=== PATIENT | female | born 1960 | race Caucasian/White ===

== ENCOUNTER → 2017-09-21 | Outpatient (CLI) | payer BC, OTHER ==
[~2017-09-21] MED LIST: ALBU1AER9 INH; CARI250T PO; GABA-113 PO; GABA800T PO; LORA-741 PO; METO50TA16 PO; MISCCAP80 PO; OXYC-106 PO; OXYC40TA34 PO; PRLSR20 PO; SERT50TA PO
--- NOTE | 2017-09-21 15:40 | DIAGNOSTIC IMAGING REPORT ---
L FOOT MIN 3 VIEWS HISTORY: 57 years-old Female LEFT FOOT PAIN acute lateral and posterior left foot pain with history of remote trauma. COMPARISON: None available TECHNIQUE: 3 views of the left foot FINDINGS: Remote fracture deformity with cortical thickening involves the fifth metatarsal diaphysis. Type II accessory navicular. No acute fracture or subluxation. No stress fracture. No opaque foreign body. Minimal dorsal spurring about the midfoot. No significant degenerative changes. Bones appear mildly demineralized. IMPRESSION: 1. No acute fracture or subluxation. 2. Remote fracture deformity with cortical thickening of the fifth metatarsal. The above report was generated using voice recognition software. It may contain grammatical, syntax or spelling errors. Electronically signed by: Oscar Day M.D. 09/21/2017 3:38 PM Dictated Date/Time: 09/21/2017 3:35 PM
== END | disposition home or self-care (01) ==
LOC: C.RDSM 08:00
PROVIDERS: ATTEND Family Medicine
DX: M79.673 Pain in unspecified foot (principal)

== ENCOUNTER 2021-01-04 06:11 | Inpatient (IN) ==
[2021-01-04] MEDS ORDERED: SODIUM CHLORIDE 0.9% 1000ML 2,000 ML IV ONE (06:43)
--- NOTE | 2021-01-04 06:49 | Emergency Department Note ---
Impression & Plan Acute saddle pulmonary embolism, Tachycardia, Shortness of breath ED Provider Note NAME: PAUL MILLARD AGE: 60 SEX: F : 1960 ARRIVES VIA: Ambulance INFORMANT: Patient ED PROVIDER(S): Ronnie Hill DO CHIEF COMPLAINT: Shortness of breath HPI: Patient is a 60-year-old female that presents the ER for shortness of breath. Symptoms started shortly after her surgery which was performed on 12/20/2020 in [place]. She had surgery on her thoracic back. She had a laminectomy and she is not sure of the exact location in her thoracic spine. She notes that since the surgery she has been having persistent pain present but it has not worsened or changed until last night/this morning as she forgot to take her pain medication. She has not wanted to eat or drink is prior to the surgery she did have Covid that had resolved but she still is not eating and dri nking as well. Denies any dysuria urgency or frequency. No recorded fevers above 100.4. She admits to shortness of breath but no chest pain. No other exacerbating or remitting factors. ROS: See above HPI for pertinent positives & negatives. A total of 10 systems reviewed and were otherwise negative. PAST MEDICAL HISTORY:See Below PAST SURGICAL HISTORY:See Below FAMILY HISTORY:See Below SOCIAL HISTORY:See Below HOME MEDICATIONS:See Below ALLERGIES:See Below VITALS:See Below PHYSICAL EXAMINATION: GENERAL: Sitting up in bed, alert, well appearing, well nourished, no distress, non-toxic EYE EXAM: normal conjunctiva. OROPHARYNX: no exudate, no erythema, lips, buccal mucosa, and tongue normal and mucous membranes are moist NECK: supple, no nuchal rigidity, no adenopathy, non-tender LUNGS: Clear to auscultation. Normal chest wall mechanics HEART: Tachycardic, S1 normal and S2 normal ABDOMEN: abdomen soft, non-tender, normo-active bowel sounds, no masses, no rebound or guarding. BACK: Back is symmetrical on inspection and there is no deformity, mid thoracic region with midline incision is clean dry and intact UPPER EXTREMITIES: upper extremities are grossly normal. LOWER EXTREMITIES: Left lower extremity larger than right NEURO EXAM: Normal sensorium, cranial nerves II-XII grossly intact, normal speech, no gross weakness of arms, no gross weakness of legs. MEDICAL DECISION MAKING: Patient is a 60-year-old female who presents the ER for shortness of breath which has been present since the surgery. Is been getting worse. She also admits to a lack of taste and smell and not wanting to eat or drink. IV was established blood work was obtained. She was found to be tachycardic in the 130s. EKG shows T wave inversions with an S1Q3T3. Bedside ultrasound confirms a noncompressible venous system within the left lower extremity on two-point exa m. I-STAT was ordered and patient was taken emergently to CAT scan. CT was obtained and per my interpretation had bilateral PEs with saddle embolism. Patient was ordered heparin bolus and drip. Patient was updated bedside. Radiology did confirm shortly after patient has acute bilateral PEs. Discussed with Dr. Duenas who will evaluate for TPA and was comfortable with keeping the patient here. Discussed with Dr. Keenan Philippe for admission who evaluate the patient at bedside. Covid did come back positive. BMP was remarkable for slightly elevated glucose of 163. Troponin was negative. Lipase was normal. Attempted to contact thoracic spine but no one was route salesperson. Patient was updated and admitted to the hospitalist for further work-up. Triage Nursing notes reviewed. Limited review of prior medical records performed Vital Signs: reviewed and remarkable for tachy Differential diagnosis: Differential diagnoses includes but is not limited to acute coronary syndrome, myocardial infarction, pericarditis, pulmonary embolus, aortic dissection, pneumonia, pneumothorax, musculoskeletal, shingles, esophageal. ER treatment provided: See below Diagnostics interpreted by me: ECG: Sinus tachycardia rate of 125 Normal axis T wave inversion V1 through V6 as well as the inferior leads S1 Q3 T3 Cardiac Monitoring: An order was placed for continuous cardiac monitoring. The monitor shows a rate of 122 with sinus rhythm. Laboratory studies: As stated above and show below. Imaging studies: CT angio of the chest shows bilateral PEs with saddle pulmonary embolism Consultation(s): Internal medicine as discussed above Dr. Keenan Philippe Credit Department Manager as discussed above Attempted to contact surgeon at [facility] but was unsuccessful Procedures: none Critical Care: I have personally spent 55 minutes of critical care time in the direct management of this patient. This includes bedside care, interpretation of diagnostic studies, and testing, discussion with consultants, patient, and family members, and other required patient management activities. This 55 minutes is in excess of all separately billable procedures. Past Med/Surg History Medical History Asthma Bronchitis Headache Hypertension Pneumonia Post lumbar puncture headache Urinary symptom or sign Urinary tract infection Surgical History Previous back surgery S/P tonsillectomy Family History Other Coronary heart disease Myocardial infarction Social History Smoking Status: Never smoker Second Hand Exposure: No; Do You Dip or Chew Tobacco: No; Hx Alcohol Use: No Hx Substance Use: Yes Substance Use Type Other:: legal marijuana Preferred Language: Irish Communication Ability: Effective Websphere Commerce Consultant Required: No Beliefs That Will Affect Care: None marital status: Current Living Situation: Spouse current occupational status: disabled Other Information That Helps Us Care for You: No Feels Safe at Home: Yes Safety Concerns: Feels Safe At This Time Safety Concerns Comment: Pt states her is verbally abusive. caffeine: No Dental Care, Regularly: Yes Physical Activity Frequency: 1-2 Times per Week Seatbelt Use: always Sunscreen Use: No Assistive Devices: Cane and Glasses Allergies Allergies Allergy/AdvReac Type Severity Reaction Status Date / Time cephalexin Allergy Unknown ` Verified 03/30/20 14:40 ciprofloxacin [From Cipro] Allergy Unknown Unverified 03/30/20 14:40 naproxen Allergy Unknown ` Verified 03/30/20 14:40 Sulfa (Sulfonamide Allergy Unknown ` Verified 03/30/20 14:40 Antibiotics) cranberry Allergy Verified 03/30/20 14:40 hydrochlorothiazide Allergy Verified 03/30/20 14:40 [From HydroDiuril] lamotrigine Allergy Verified 03/30/20 14:40 nitrofurantoin Allergy Verified 03/30/20 14:40 [From Macrodantin] duloxetine AdvReac Mild heart Verified 03/30/20 14:56 racing NSAIDS (Non-Steroidal AdvReac Unknown UNKNOWN Unverified 03/30/20 14:40 Anti-Inflamma topiramate AdvReac Unknown arms Verified 03/30/20 14:40 became severly cold Home Meds Home Medications Medication Instructions Recorded Confirmed lactobacillus combination no.4 1 cap PO DAILY 08/17/18 01/04/21 [Probiotic] carisoprodol 350 mg tablet 350 mg PO QID 03/30/20 01/04/21 gabapentin enacarbil [Horizant] 600 mg PO HS 01/04/21 01/04/21 metoprolol tartrate 50 mg PO HS 01/04/21 01/04/21 omeprazole 20 mg PO DAILY PRN 01/04/21 01/04/21 oxycodone 10 mg PO BID 01/04/21 01/04/21 tolterodine 2 mg PO BID 01/04/21 01/04/21 Previous Rx's Medication Instructions Recorded cholecalciferol (vitamin D3) 1,250 50,000 units PO WEEKLY #30 cap 05/28/19 mcg (50,000 unit) capsule epinephrine 0.3 mg/0.3 mL 0.3 mg IM .QUD PRN #1 ea 03/30/20 injection, auto-injector gabapentin 300 mg capsule 300 mg PO .COMPLEX #150 cap 10/14/20 oxybutynin chloride 5 mg tablet 5 mg PO TID #90 tab 11/16/20 albuterol sulfate 90 mcg/actuation 2 puff INH QID PRN #8 g 11/26/20 aerosol inhaler miscellaneous medical supply 1 ea MISCELLANEOUS PRN #1 ea 12/07/20 Results & Data (ED) Vital Signs Vital Signs - 24 hr 01/04/21 06:28 01/04/21 06:45 01/04/21 06:52 Temperature 36.9 C 36.9 C Temperature Source Oral Oral Pulse Rate 131 H 126 H Pulse Rate [Apical] 124 H Pulse Rhythm Regular Respiratory Rate Respiratory Effort / Characteristics Labored Respiratory Depth Normal Blood Pressure 140/112 H Blood Pressure [Left Arm] 140/112 H Blood Pressure Mean 121 Blood Pressure Mean [Left Arm] 121 Pulse Oximetry 93 95 96 Oxygen Delivery Method Room Air Room Air Room Air Sepsis Recent Fever Within 48 Hours No Sepsis New/Unexplained Change in Mental Status No Sepsis Action Taken by Nursing Physician Notified 01/04/21 07:34 Temperature Temperature Source Pulse Rate Pulse Rate [Apical] 125 H Pulse Rhythm Respiratory Rate 18 Respiratory Effort / Characteristics Respiratory Depth Blood Pressure Blood Pressure [Left Arm] 134/81 Blood Pressure Mean Blood Pressure Mean [Left Arm] 98 Pulse Oximetry 93 Oxygen Delivery Method Room Air Sepsis Recent Fever Within 48 Hours Sepsis New/Unexplained Change in Mental Status Sepsis Action Taken by Nursing Laboratory Data Result diagrams: 01/04/21 06:43 01/04/21 07:00 Lab Results 01/04/21 01/04/21 01/04/21 Range/Units 06:43 07:00 07:01 WBC 12.06 H (4.8-10.8) K/uL RBC 4.93 (4.2-5.4) M/uL Hgb 14.8 (12.0-16.0) g/dL POC Hgb (12.0-16.0) g/dl Hct 44.9 (37-47) % POC Hct (37-47) % MCV 91.1 (80-100) fL MCH 30.0 (25-34) pg MCHC 33.0 (32-36) g/dL RDW Std Deviation 51.8 H (36.4-46.3) fL RDW Coeff of Cynthia 15.4 H (11.5-14.5) % Plt Count 241 (130-400) K/uL MPV 11.7 H (7.4-10.4) fL Immature Gran % (Auto) 0.2 % Neut % (Auto) 82.4 % Lymph % (Auto) 11.1 % [place] % (Auto) 6.1 % Eos % (Auto) 0.0 % Baso % (Auto) 0.2 % Neut # (Auto) 9.92 H (1.4-6.5) K/uL Lymph # (Auto) 1.34 (1.2-3.4) K/uL [place] # (Auto) 0.74 H (0.11-0.59) K/uL Eos # (Auto) 0.00 (0-0.5) K/uL Baso # (Auto) 0.03 (0-0.2) K/uL Immature Gran # (Auto) 0.03 H (0.00-0.02) K/uL PT (9.0-12.0) Seconds INR (0.9-1.1) APTT (21.0-31.0) Seconds PTT Ratio POC Sodium (135-144) mmol/L Sodium 138 (136-145) mmol/L POC Potassium (3.3-5.0) mmol/L Potassium 4.4 (3.5-5.1) mmol/L POC Chloride (101-112) mmol/L Chloride 106 (98-107) mmol/L Carbon Dioxide 22 (21-32) mmol/L POC Total CO2 (24-31) mmol/L Anion Gap 10.0 (3-11) POC Anion Gap (16-25) mmol/L POC BUN (7-18) mg/dl BUN 12 (7-18) mg/dl Creatinine 0.95 (0.6-1.2) mg/dl POC Creatinine (0.6-1.3) mg/dl Est Cr Clr Drug Dosing 71.6 ml/min Est GFR ( Amer) 75.5 Est GFR (Non-Af Amer) 65.1 BUN/Creatinine Ratio 12.8 (10-20) Glucose 163 H (70-99) mg/dl POC Glucose (other) (70-99) mg/dl Calcium 9.1 (8.5-10.1) mg/dl POC Ioniz Calcium Gloria (1.12-1.32) mmol/l Total Bilirubin 0.7 (0.2-1) mg/dl AST 23 (15-37) U/L ALT 26 (12-78) U/L Alkaline Phosphatase 87 (45-117) U/L Troponin I 0.038 (0-0.045) ng/ml NT-Pro-B Natriuret Pep 18890 H (0-900) pg/ml Total Protein 7.3 (6.4-8.2) gm/dl Albumin 3.1 L (3.4-5.0) gm/dl Globulin 4.2 H (2.5-4.0) gm/dl Albumin/Globulin Ratio 0.7 L (0.9-2) Lipase 132 (73-393) U/L Urine Color Urine Appearance (Clear) Urine pH (4.5-7.5) Ur Specific [place] (1.000-1.030) Urine Protein (Negative) Urine Glucose (UA) (Negative) Urine Ketones (Negative) Urine Blood (Negative) Urine Nitrite (Negative) Urine Bilirubin (Negative) Urine Urobilinogen (Negative) Ur Leukocyte Esterase (Negative) Urine WBC (Auto) (0-5) /hpf Urine RBC (Auto) (0-4) /hpf U Hyaline Cast (Auto) (0-5) /lpf U Epithel Cells (Auto) (0-5) /lpf Urine Bacteria (Auto) (Negative) COVID-19 Eval Order CovFluRsv at [facility] SARS-CoV-2 (PCR) (Negative) Influenza Type A (PCR) (Neg) Influenza Type B (PCR) (Neg) RSV (RT-PCR) (Neg) 01/04/21 01/04/21 01/04/21 Range/Units 07:01 07:09 07:42 WBC (4.8-10.8) K/uL RBC (4.2-5.4) M/uL Hgb (12.0-16.0) g/dL POC Hgb 15.3 (12.0-16.0) g/dl Hct (37-47) % POC Hct 45 (37-47) % MCV (80-100) fL MCH (25-34) pg MCHC (32-36) g/dL RDW Std Deviation (36.4-46.3) fL RDW Coeff of Cynthia (11.5-14.5) % Plt Count (130-400) K/uL MPV (7.4-10.4) fL Immature Gran % (Auto) % Neut % (Auto) % Lymph % (Auto) % [place] % (Auto) % Eos % (Auto) % Baso % (Auto) % Neut # (Auto) (1.4-6.5) K/uL Lymph # (Auto) (1.2-3.4) K/uL [place] # (Auto) (0.11-0.59) K/uL Eos # (Auto) (0-0.5) K/uL Baso # (Auto) (0-0.2) K/uL Immature Gran # (Auto) (0.00-0.02) K/uL PT (9.0-12.0) Seconds INR (0.9-1.1) APTT (21.0-31.0) Seconds PTT Ratio POC Sodium 137 (135-144) mmol/L Sodium (136-145) mmol/L POC Potassium 4.3 (3.3-5.0) mmol/L Potassium (3.5-5.1) mmol/L POC Chloride 104 (101-112) mmol/L Chloride (98-107) mmol/L Carbon Dioxide (21-32) mmol/L POC Total CO2 23 L (24-31) mmol/L Anion Gap (3-11) POC Anion Gap 16.0 (16-25) mmol/L POC BUN 12 (7-18) mg/dl BUN (7-18) mg/dl Creatinine (0.6-1.2) mg/dl POC Creatinine 0.8 (0.6-1.3) mg/dl Est Cr Clr Drug Dosing ml/min Est GFR ( Amer) Est GFR (Non-Af Amer) BUN/Creatinine Ratio (10-20) Glucose (70-99) mg/dl POC Glucose (other) 166 H (70-99) mg/dl Calcium (8.5-10.1) mg/dl POC Ioniz Calcium Gloria 1.08 L (1.12-1.32) mmol/l Total Bilirubin (0.2-1) mg/dl AST (15-37) U/L ALT (12-78) U/L Alkaline Phosphatase (45-117) U/L Troponin I (0-0.045) ng/ml NT-Pro-B Natriuret Pep (0-900) pg/ml Total Protein (6.4-8.2) gm/dl Albumin (3.4-5.0) gm/dl Globulin (2.5-4.0) gm/dl Albumin/Globulin Ratio (0.9-2) Lipase (73-393) U/L Urine Color Yellow Urine Appearance Clear (Clear) Urine pH 5.5 (4.5-7.5) Ur Specific [place] > 1.045 H (1.000-1.030) Urine Protein Trace H (Negative) Urine Glucose (UA) Negative (Negative) Urine Ketones Trace H (Negative) Urine Blood Trace H (Negative) Urine Nitrite Negative (Negative) Urine Bilirubin Negative (Negative) Urine Urobilinogen Negative (Negative) Ur Leukocyte Esterase 1+ H (Negative) Urine WBC (Auto) 10-30 H (0-5) /hpf Urine RBC (Auto) 0-4 (0-4) /hpf U Hyaline Cast (Auto) 1-5 (0-5) /lpf U Epithel Cells (Auto) >30 H (0-5) /lpf Urine Bacteria (Auto) Negative (Negative) COVID-19 Eval Order SARS-CoV-2 (PCR) POSITIVE A* (Negative) Influenza Type A (PCR) Negative (Neg) Influenza Type B (PCR) Negative (Neg) RSV (RT-PCR) Negative (Neg) 01/04/21 Range/Units 07:50 WBC (4.8-10.8) K/uL RBC (4.2-5.4) M/uL Hgb (12.0-16.0) g/dL POC Hgb (12.0-16.0) g/dl Hct (37-47) % POC Hct (37-47) % MCV (80-100) fL MCH (25-34) pg MCHC (32-36) g/dL RDW Std Deviation (36.4-46.3) fL RDW Coeff of Cynthia (11.5-14.5) % Plt Count (130-400) K/uL MPV (7.4-10.4) fL Immature Gran % (Auto) % Neut % (Auto) % Lymph % (Auto) % [place] % (Auto) % Eos % (Auto) % Baso % (Auto) % Neut # (Auto) (1.4-6.5) K/uL Lymph # (Auto) (1.2-3.4) K/uL [place] # (Auto) (0.11-0.59) K/uL Eos # (Auto) (0-0.5) K/uL Baso # (Auto) (0-0.2) K/uL Immature Gran # (Auto) (0.00-0.02) K/uL PT 11.9 (9.0-12.0) Seconds INR 1.2 H (0.9-1.1) APTT 23.8 (21.0-31.0) Seconds PTT Ratio 0.9 POC Sodium (135-144) mmol/L Sodium (136-145) mmol/L POC Potassium (3.3-5.0) mmol/L Potassium (3.5-5.1) mmol/L POC Chloride (101-112) mmol/L Chloride (98-107) mmol/L Carbon Dioxide (21-32) mmol/L POC Total CO2 (24-31) mmol/L Anion Gap (3-11) POC Anion Gap (16-25) mmol/L POC BUN (7-18) mg/dl BUN (7-18) mg/dl Creatinine (0.6-1.2) mg/dl POC Creatinine (0.6-1.3) mg/dl Est Cr Clr Drug Dosing ml/min Est GFR ( Amer) Est GFR (Non-Af Amer) BUN/Creatinine Ratio (10-20) Glucose (70-99) mg/dl POC Glucose (other) (70-99) mg/dl Calcium (8.5-10.1) mg/dl POC Ioniz Calcium Gloria (1.12-1.32) mmol/l Total Bilirubin (0.2-1) mg/dl AST (15-37) U/L ALT (12-78) U/L Alkaline Phosphatase (45-117) U/L Troponin I (0-0.045) ng/ml NT-Pro-B Natriuret Pep (0-900) pg/ml Total Protein (6.4-8.2) gm/dl Albumin (3.4-5.0) gm/dl Globulin (2.5-4.0) gm/dl Albumin/Globulin Ratio (0.9-2) Lipase (73-393) U/L Urine Color Urine Appearance (Clear) Urine pH (4.5-7.5) Ur Specific [place] (1.000-1.030) Urine Protein (Negative) Urine Glucose (UA) (Negative) Urine Ketones (Negative) Urine Blood (Negative) Urine Nitrite (Negative) Urine Bilirubin (Negative) Urine Urobilinogen (Negative) Ur Leukocyte Esterase (Negative) Urine WBC (Auto) (0-5) /hpf Urine RBC (Auto) (0-4) /hpf U Hyaline Cast (Auto) (0-5) /lpf U Epithel Cells (Auto) (0-5) /lpf Urine Bacteria (Auto) (Negative) COVID-19 Eval Order SARS-CoV-2 (PCR) (Negative) Influenza Type A (PCR) (Neg) Influenza Type B (PCR) (Neg) RSV (RT-PCR) (Neg) Administered Medications Heparin Sodium/Dextrose (Heparin Sodium/Dextrose) 25,000 units in 500 mls @ 26 mls/hr IV .[id number] [facility]; Protocol Stop: 02/03/21 07:37 Last Admin: 01/04/21 07:57 Dose: 1,300 units/hr, 26 mls/hr Documented by: [id number] Cosigned by: [id number] Discontinued Medications Heparin Sodium (Porcine) (Heparin Sod (Porcine) 1000 Unit/Ml) 1 units IV NOW ONE Stop: 01/04/21 07:39 Last Admin: 01/04/21 07:57 Dose: 6,000 units Documented by: [id number] Cosigned by: [id number] Heparin Sodium/Dextrose (Heparin Iv Adult Wt-Based Standard With Bolus Protocol) 1 ea IV NOW STA; Protocol Stop: 01/04/21 07:24 Last Admin: 01/04/21 11:48 Dose: Not Given Documented by: [id number] Sodium Chloride (Nss 1000ml) 2,000 mls @ 999 mls/hr IV .Q2H1M ONE Stop: 01/04/21 08:43 Last Infusion: 01/04/21 11:48 Dose: 0 mls/hr Documented by: [id number] Infusion: 01/04/21 08:11 Dose: 0 mls/hr Documented by: [id number] Admin: 01/04/21 06:48 Dose: 999 mls/hr Documented by: [id number] Ioversol (Optiray 350 500ml) 120 ml IV ONCE ONE Stop: 01/04/21 07:16 Last Admin: 01/04/21 07:16 Dose: 120 ml Documented by: [id number] Imaging Data Radiologist's Impression: Chest CTA 01/04/21 06:43 CT ANGIOGRAM OF THE CHEST CLINICAL HISTORY: Shortness of breath. Cough. Recent surgery. Possible acute pulmonary embolism. COMPARISON STUDY: Chest x-ray dated 01/04/2021 TECHNIQUE: Following the IV administration of 120 mL of Optiray, CT angiogram of the thorax was performed from the thoracic inlet to the lung bases utilizing the pulmonary embolus protocol. Images are reviewed in the axial, sagittal, and coronal planes. IV contrast was administered without complication. MIP imaging was performed. A dose lowering technique was utilized adhering to the principles of ALARA. CT DOSE: 533.00 mGy.cm FINDINGS: r there is a nonspecific 11 mm hypodensity within the right hepatic lobe posteriorly. No pathologically enlarged axillary mediastinal or hilar lymph nodes were visualized. There was no evidence of thoracic aortic dilatation. There is acute bilateral pulmonary embolism with a saddle embolus. There is suspected mild right ventricular strain. The thrombus burden is large. No pleural effusions are visualized. There are peripheral subpleural opacities, atelectatic versus areas of pulmonary infarction. The sequela of prior Covid pneumonia could also appear similar. There is a hiatal hernia. A spinal stimulator is visualized. IMPRESSION: 1. Acute sagittal pulmonary embolism with a large thrombus burden. Suspected mild right ventricular strain 2. The scan findings were discussed with Dr. Hill at 7:30 AM. ACT 112: Negative or not required by law. Electronically signed by: Marlo Munguia M.D. 01/04/2021 7:33 AM Chest X-Ray 01/04/21 06:43 XR chest 1V portable CLINICAL HISTORY: Atypical chest pain COMPARISON STUDY: 08/17/2018 FINDINGS: The cardiac and mediastinal contours remain stable. There is a retrocardiac opacity consistent with a hiatal hernia. There are subsegmental atelectatic changes at the left lung base. A spinal stimulator is visualized. There is no failure. There is no lobar consolidation. There are no pleural effusions.[ IMPRESSION: Moderate hiatal hernia. Left basilar atelectasis. No acute findings. ACT 112: Negative or not required by law. Electronically signed by: Marlo Munguia M.D. 01/04/2021 6:57 AM Discharge Plan Visit Data Chief Complaint: Illness Stated Complaint: POSSIBLE SEPSIS ED Provider: Ronnie Hill Discharge Problem: Acute saddle pulmonary embolism, Tachycardia, Shortness of breath Patient Disposition: Admitted As Inpatient Discharge Instructions Interventions: ED Discharge Assessment Last Done: 01/04/21 10:09 Discharge Problem: Acute saddle pulmonary embolism Qualifiers: Acute cor pulmonale presence: unspecified Qualified Code(s): I26.92 - Saddle embolus of pulmonary artery without acute cor pulmonale
--- NOTE | 2021-01-04 06:59 | XRay Report ---
XR chest 1V portable CLINICAL HISTORY: Atypical chest pain COMPARISON STUDY: 08/17/2018 FINDINGS: The cardiac and mediastinal contours remain stable. There is a retrocardiac opacity consist ent with a hiatal hernia. There are subsegmental atelectatic changes at the left lung base. A spinal stimulator is visualized. There is no failure. There is no lobar consolidation. There are no pleural effusions.[ IMPRESSION: Moderate hiatal hernia. Left basilar atelectasis. No acute findings. ACT 112: Negative or not required by law. Electronically signed by: Marlo Munguia M.D. 01/04/2021 6:57 AM
[2021-01-04] MEDS ORDERED: OPTIRAY 350 500ml IV ONE (07:15)
[2021-01-04 07:17] LABS: Basophils # (auto) 0.03 K/uL (0-0.2); Basophils % (auto) 0.2 %; Hematocrit (blood only) 44.9 % (37-47); Hemoglobin 14.8 g/dL (12.0-16.0); Immature Granulocytes # (auto) 0.03 K/uL (0.00-0.02); Immature Granulocytes % (auto) 0.2 %; Lymphocytes # (auto) 1.34 K/uL (1.2-3.4); Lymphocytes % (auto) 11.1 %; Mean Corpuscular Volume 91.1 fL (80-100); Mean Platelet Volume 11.7 fL (7.4-10.4); Monocytes # (auto) 0.74 K/uL (0.11-0.59); Monocytes % (auto) 6.1 %; Neutrophils # (auto) 9.92 K/uL (1.4-6.5); Neutrophils % (auto) 82.4 %; Platelet Count 241 K/uL (130-400); RDW Coefficient of Variation 15.4 % (11.5-14.5); RDW Standard Deviation 51.8 fL (36.4-46.3); Red Blood Count 4.93 M/uL (4.2-5.4); White Blood Count 12.06 K/uL (4.8-10.8)
[2021-01-04] MEDS ORDERED: Heparin IV Adult Wt-Based Standard WITH Bolus Protocol IV STA (07:23)
--- NOTE | 2021-01-04 07:34 | CT Scan Report ---
CT ANGIOGRAM OF THE CHEST CLINICAL HISTORY: Shortness of breath. Cough. Recent surgery. Possible acute pulmonary embolism. COMPARISON STUDY: Chest x-ray dated 01/04/2021 TECHNIQUE: Following the IV administration of 120 mL of Optiray, CT angiogram of the thorax was perfo rmed from the thoracic inlet to the lung bases utilizing the pulmonary embolus protocol. Images are r eviewed in the axial, sagittal, and coronal planes. IV contrast was administered without complication . MIP imaging was performed. A dose lowering technique was utilized adhering to the principles of [place]. CT DOSE: 533.00 mGy.cm FINDINGS: r there is a nonspecific 11 mm hypodensity within the right hepatic lobe posteriorly. No pathologically enlarged axillary mediastinal or hilar lymph nodes were visualized. There was no evidence of thoracic aortic dilatation. There is acute bilateral pulmonary embolism with a saddle embolus. There is suspected mild right vent ricular strain. The thrombus burden is large. No pleural effusions are visualized. There are peripheral subpleural opacities, atelectatic versus areas of pulmonary infarction. The sequ cristina of prior Covid pneumonia could also appear similar. There is a hiatal hernia. A spinal stimulator is visualized. IMPRESSION: 1. Acute sagittal pulmonary embolism with a large thrombus burden. Suspected mild right ventricular s train 2. The scan findings were discussed with Dr. Hill at 7:30 AM. ACT 112: Negative or not required by law. Electronically signed by: Marlo Munguia M.D. 01/04/2021 7:33 AM
[2021-01-04] MEDS ORDERED: HEPARIN SOD (PORCINE) 1000 UNIT/ML IV ONE (07:38)
[2021-01-04] MEDS ORDERED: HEPARIN SODIUM/DEXTROSE 25,000 UNITS/500 ML BAG IV SCH (07:38)
[2021-01-04 07:46] LABS: Albumin Level 3.1 gm/dl (3.4-5.0); BUN Creatinine Ratio 12.8 (10-20); Calcium 9.1 mg/dl (8.5-10.1); Creatinine Clr Calc Pharmacy 71.6 ml/min; Est GFR (African American) 75.5; Est GFR (Non-African American) 65.1; Potassium 4.4 mmol/L (3.5-5.1)
[2021-01-04 07:49] LABS: Influenza A virus by PCR Negative (Neg); Influenza B virus by PCR Negative (Neg); RSV by PCR Negative (Neg)
[2021-01-04 07:51] LABS: Albumin Globulin Ratio 0.7 (0.9-2); Bilirubin,Total 0.7 mg/dl (0.2-1); Globulin 4.2 gm/dl (2.5-4.0); Total Protein 7.3 gm/dl (6.4-8.2); Troponin I 0.038 ng/ml (0-0.045)
[2021-01-04 07:53] LABS: iSTAT Creatinine 0.8 mg/dl (0.6-1.3); iSTAT Hemoglobin 15.3 g/dl (12.0-16.0); iSTAT Ionized Calcium 1.08 mmol/l (1.12-1.32); iSTAT Potassium 4.3 mmol/L (3.3-5.0)
[2021-01-04 07:59] LABS: SARS CoV2 RNA(COVID-19) InHosp POSITIVE (Negative)
--- NOTE | 2021-01-04 08:04 | History & Physical Report ---
Date of Service January 04, 2021 Assessment & Plan (1) Acute saddle pulmonary embolism: Admit to PCU, blood pressure is stable and maintaining O2 sats on room air despite large saddle embolus present Continue Heparin standard IV bolus and drip TTE Stat ABG Consult pulmonology (2) Tachycardia: Secondary to PE as above, possible rebound tachycardia from not taking metoprolol last night (3) Shortness of breath: As above (4) Hypertension: Hold metoprolol (5) Asthma: No acute exacerbation Albuterol PRN (6) Previous back surgery: Continue her usual gabapentin, carisoprodol and oxycodone (7) Stress incontinence: Continue oxybutynin (8) GERD (gastroesophageal reflux disease): Switch omeprazole to pantoprazole per hospital formulary Admission and Anticipated Discharge Date Admission Date: January 04, 2021 History of Present Illness Chief Complaint: Shortness of breath Primary Care Provider: MEMO Chand Bonnie Carmen is a 60-year-old female who presents to the ER due to decreased appetite, chills, nonproductive cough, shortness of breath, back pain s/p surgery 12/20/[address] [place] [address] Gunn. She previously tested positive for COVID-19 and was unwell with respiratory symptoms starting November 24. She feels as if her symptoms are similar to her prior COVID-19 infection. No chest pain, orthopnea, objective fevers, abdominal pain, nausea, vomiting, diarrhea or urinary symptoms. She denies any leg pain or swelling. She reports progressively worsening shortness of breath and decreased appetite since her surgery on 12/20/2020 - she reports this was for spinal stimulator insertion although is unclear on the exact details. She reports multiple prior back surgeries for back pain without radicular, urinary or bowel symptoms. In the ER CT for PE showed a saddle embolus. She was started on heparin IV standard bolus and drip. She was referred to medicine for admission and ongoing management or pulmonary embolism. Allergies Allergy/AdvReac Type Severity Reaction Status Date / Time cephalexin Allergy Unknown ` Verified 03/30/20 14:40 ciprofloxacin [From Cipro] Allergy Unknown Unknown Unverified 01/04/21 14:13 naproxen Allergy Unknown ` Verified 03/30/20 14:40 Sulfa (Sulfonamide Allergy Unknown ` Verified 03/30/20 14:40 Antibiotics) cranberry Allergy Unknown Verified 01/04/21 14:13 hydrochlorothiazide Allergy Unknown Verified 01/04/21 14:13 [From HydroDiuril] lamotrigine Allergy Unknown Verified 01/04/21 14:13 nitrofurantoin Allergy Unknown Verified 01/04/21 14:13 [From Macrodantin] duloxetine AdvReac Mild heart Verified 03/30/20 14:56 racing NSAIDS (Non-Steroidal AdvReac Unknown UNKNOWN Unverified 03/30/20 14:40 Anti-Inflamma topiramate AdvReac Unknown arms Verified 03/30/20 14:40 became severly cold sertraline AdvReac Unknown Verified 01/04/21 14:13 tramadol AdvReac Unknown Verified 01/04/21 14:13 venlafaxine AdvReac Unknown Verified 01/04/21 14:13 Home Medications Medication Instructions Recorded Confirmed Type lactobacillus combination no.4 1 cap PO DAILY 08/17/18 01/04/21 History [Probiotic] cholecalciferol (vitamin D3) 1,250 50,000 units PO WEEKLY #30 cap 05/28/19 01/04/21 Rx mcg (50,000 unit) capsule carisoprodol 350 mg tablet 350 mg PO QID 03/30/20 01/04/21 History epinephrine 0.3 mg/0.3 mL 0.3 mg IM .QUD PRN #1 ea 03/30/20 01/04/21 Rx injection, auto-injector gabapentin 300 mg capsule 300 mg PO .COMPLEX #150 cap 10/14/20 01/04/21 Rx oxybutynin chloride 5 mg tablet 5 mg PO TID #90 tab 11/16/20 01/04/21 Rx albuterol sulfate 90 mcg/actuation 2 puff INH QID PRN #8 g 11/26/20 01/04/21 Rx aerosol inhaler miscellaneous medical supply 1 ea MISCELLANEOUS PRN #1 ea 12/07/20 01/04/21 Rx gabapentin enacarbil [Horizant] 600 mg PO HS 01/04/21 01/04/21 History metoprolol tartrate 50 mg PO HS 01/04/21 01/04/21 History omeprazole 20 mg PO DAILY PRN 01/04/21 01/04/21 History oxycodone 10 mg PO BID 01/04/21 01/04/21 History tolterodine 2 mg PO BID 01/04/21 01/04/21 History Past Med/Surg History Medical History Asthma Bronchitis Headache Hypertension Pneumonia Post lumbar puncture headache Urinary symptom or sign Urinary tract infection Surgical History Previous back surgery S/P tonsillectomy Family History Other Coronary heart disease Myocardial infarction Social History Smoking Status: Never smoker Second Hand Exposure: No; Do You Dip or Chew Tobacco: No; Hx Alcohol Use: No Hx Substance Use: Yes Substance Use Type Other:: legal marijuana Preferred Language: Azeri Communication Ability: Effective Chair Mechanic Required: No Beliefs That Will Affect Care: None marital status: Current Living Situation: Spouse current occupational status: disabled Other Information That Helps Us Care for You: No Feels Safe at Home: Yes Safety Concerns: Feels Safe At This Time Safety Concerns Comment: Pt states her is verbally abusive. caffeine: No Dental Care, Regularly: Yes Physical Activity Frequency: 1-2 Times per Week Seatbelt Use: always Sunscreen Use: No Assistive Devices: Cane and Oxygen - Continuous Review of Systems Review of Systems: All systems reviewed & are unremarkable except as noted in HPI & below Physical Exam Constitutional: WD/WN, vitals as above Eyes: PERRL, conjunctivae normal, anicteric sclerae ENMT: external ear and nose normal, oropharynx normal Respiratory: + uses accessory muscles Auscultation: lungs clear to auscultation bilaterally; no diminished lung sounds and no crackles Cardiovascular: Rate/Rhythm: regular rhythm and + tachycardic Heart Sounds: no murmur Vessels: no JVD Extremities: normal capillary refill; no calf tenderness and no pedal edema Gastrointestinal (Abdomen): normal bowel sounds, soft, nontender, no hepatosplenomegaly Musculoskeletal: no cyanosis or clubbing, extremities motor strength 5/5 Skin: no rashes, warm and dry Neurologic: moves all extremities and awake; no focal motor deficits and not confused Psychiatric: A+Ox3, euthymic affect Genitourinary: no CVA tenderness Results & Data Results & Data ([facility]) Vital Signs (Past 12 Hours) Vital Signs Temp Pulse Pulse Resp BP BP Pulse Ox 01/04/21 07:34 125 H 18 134/81 93 01/04/21 06:52 36.9 C 124 H 21 140/112 H 96 01/04/21 06:45 126 H 21 95 01/04/21 06:28 36.9 C 131 H 21 140/112 H 93 Diagnostic Findings XR chest 1V portable IMPRESSION: Moderate hiatal hernia. Left basilar atelectasis. No acute findings. CT ANGIOGRAM OF THE CHEST IMPRESSION: 1. Acute sagittal pulmonary embolism with a large thrombus burden. Suspected mild right ventricular strain 2. The scan findings were discussed with Dr. Hill at 7:30 AM. Medications Administered ER Medications Given: IV heparin standard bolus and drip 2L NSS bolus ECG Rate (beats per minute): 125 Rhythm: sinus tachycardia Findings: + nonspecific-ST abn (Anterior) and + T-wave inversion (Anterior) Comparison ECG Date: from (Aug 17, 2018) Code Status & VTE Plan Code Status Full PG Care Time/CCT Total # of Minutes Spent Total Time Spent with Patient: Total time spent is greater than 50% in coordination of care (as documented) at patient's floor/unit and/or counseling patient: Coding Level of Care Code 38175 Initial Inpt Care Lvl 3 Diagnoses Acute saddle pulmonary embolism I26.92 Acute cor pulmonale presence: unspecified Tachycardia R00.0 Shortness of breath R06.02 Hypertension I10 Asthma J45.909 Previous back surgery Z98.890 Stress incontinence N39.3 GERD (gastroesophageal reflux disease) K21.9 (1) Acute saddle pulmonary embolism Acute cor pulmonale presence: unspecified Qualified Code(s): I26.92 - Saddle embolus of pulmonary artery without acute cor pulmonale
[2021-01-04 08:06] LABS: Appearance Urine Clear (Clear); Bacteria Urine Automated Negative (Negative); Bilirubin Urine Negative (Negative); Blood Urine Trace (Negative); Color Urine Yellow; Epithelial Cell Urine Auto >30 /lpf (0-5); Glucose Urine UA Negative (Negative); Ketones Urine Trace (Negative); Leukocyte Esterase Urine 1+ (Negative); Nitrite Urine Negative (Negative); Protein Urine Trace (Negative); RBC Urine Automated 0-4 /hpf (0-4); Specific Gravity Urine > 1.045 (1.000-1.030); Urobilinogen Urine Negative (Negative); pH Urine 5.5 (4.5-7.5)
[2021-01-04 08:20] LABS: INR 1.2 (0.9-1.1); Partial Thromboplastin Ratio 0.9; Partial Thromboplastin Time 23.8 Seconds (21.0-31.0); Prothrombin Time 11.9 Seconds (9.0-12.0)
[2021-01-04] MEDS ORDERED: TOLTERODINE TARTRATE 2 MG TAB PO SCH (10:51)
[2021-01-04] MEDS ORDERED: oxyCODONE HCL IR 5 MG TAB (IMMEDIATE RELEASE) PO SCH (10:51)
[2021-01-04 10:53] LABS: Base Excess ABG -4.6 mEq/L (-9-1.8); HCO3 ABG 16 mmol/L (19-24); Oxygen Saturation ABG 94.7 % (90-95); PCO2 ABG 21 mmHg (35-46); PO2 ABG 64 mmHg (80-95)
[2021-01-04 10:54] LABS: Allen Test Pos (Pos)
--- NOTE | 2021-01-04 11:13 | Pulmonary Consultation ---
Date of Consultation January 04, 2021 Assessment & Plan (1) Acute saddle pulmonary embolism: CT chest 12/05/2020 personally reviewed: Saddle PE appreciated, right ventricular strain also appreciated. Minimal mosaicism. Groundglass opacities minimal appreciated on the periphery. Dependent atelectasis bilateral lower lobe EKG 01/04/2021: Sinus tachycardia, minimal ST depression in lead I, mild ST elevation in 3 which is less than 1 mm, T wave inversions on the lateral leads. --Acute saddle PE With right ventricular strain and clot in transit in the right atrium BNP 13,000 PESI score Class II sPESI High risk Patient is hemodynamically stable but given the above findings I think it is class I indication to give TPA if she has no contraindications for TPA We do not have EKOS in our facility. Patient had lower back surgery done 12/20/2020 which is more than 2 weeks ago. Risk and benefits of giving the TPA explained to the patient in depth. There is risk of bleeding with TPA as with any blood thinner. It is 3.4% more compared to heparin. Risk of intracerebral bleed is also there as well as hemoptysis. Given the clot in transit there is a risk of cardiac arrest. -- Clot in transit RA clot Plan: Currently on heparin drip. Recommend TPA 50 mg IV Patient's was also called and updated regarding the recommendation at [phone] Philippe Please note the above document was generated using voice recognition software. It may contain grammatical, syntax or spelling errors.Any formal questions or concerns about the content, text or information contained within the body of this dictation should be directly addressed to the provider for clarification. Acute cor pulmonale presence: unspecified Qualified Code(s): I26.92 - Saddle embolus of pulmonary artery without acute cor pulmonale (2) Tachycardia: (3) Shortness of breath: History of Present Illness Attending Physician: Keenan Philippe MD History of Present Illness 60-year-old female presented to the ED with complaints of shortness of breath. She said that shortness of breath started approximately a week ago progressively getting worse. She had laminectomy done on 12/20/2020 on the thoracic back. Patient also had Covid in the past. At the time of examination patient's heart rate was in the low 120s, she was not in respiratory distress. Respiratory rate was in the mid teens. Denied any dizziness. She did complain of dizziness prior to coming to the hospital Denies any fever or chills. Denies any chest pain. No dysuria, no diarrhea No headache, no dizziness. Denies any history of cancer Low back surgery was done on 12/20/2020 Social history: Non-smoker, no illicit drug use, no alcohol use Allergies Allergy/AdvReac Type Severity Reaction Status Date / Time cephalexin Allergy Unknown ` Verified 03/30/20 14:40 ciprofloxacin [From Cipro] Allergy Unknown Unverified 03/30/20 14:40 naproxen Allergy Unknown ` Verified 03/30/20 14:40 Sulfa (Sulfonamide Allergy Unknown ` Verified 03/30/20 14:40 Antibiotics) cranberry Allergy Verified 03/30/20 14:40 hydrochlorothiazide Allergy Verified 03/30/20 14:40 [From HydroDiuril] lamotrigine Allergy Verified 03/30/20 14:40 nitrofurantoin Allergy Verified 03/30/20 14:40 [From Macrodantin] duloxetine AdvReac Mild heart Verified 03/30/20 14:56 racing NSAIDS (Non-Steroidal AdvReac Unknown UNKNOWN Unverified 03/30/20 14:40 Anti-Inflamma topiramate AdvReac Unknown arms Verified 03/30/20 14:40 became severly cold Home Medications Medication Instructions Recorded Confirmed Type lactobacillus combination no.4 1 cap PO DAILY 08/17/18 01/04/21 History [Probiotic] cholecalciferol (vitamin D3) 1,250 50,000 units PO WEEKLY #30 cap 05/28/19 01/04/21 Rx mcg (50,000 unit) capsule carisoprodol 350 mg tablet 350 mg PO QID 03/30/20 01/04/21 History epinephrine 0.3 mg/0.3 mL 0.3 mg IM .QUD PRN #1 ea 03/30/20 01/04/21 Rx injection, auto-injector gabapentin 300 mg capsule 300 mg PO .COMPLEX #150 cap 10/14/20 01/04/21 Rx oxybutynin chloride 5 mg tablet 5 mg PO TID #90 tab 11/16/20 01/04/21 Rx albuterol sulfate 90 mcg/actuation 2 puff INH QID PRN #8 g 11/26/20 01/04/21 Rx aerosol inhaler miscellaneous medical supply 1 ea MISCELLANEOUS PRN #1 ea 12/07/20 01/04/21 Rx gabapentin enacarbil [Horizant] 600 mg PO HS 01/04/21 01/04/21 History metoprolol tartrate 50 mg PO HS 01/04/21 01/04/21 History omeprazole 20 mg PO DAILY PRN 01/04/21 01/04/21 History oxycodone 10 mg PO BID 01/04/21 01/04/21 History tolterodine 2 mg PO BID 01/04/21 01/04/21 History Patient History Medical History Asthma Bronchitis Headache Hypertension Pneumonia Post lumbar puncture headache Urinary symptom or sign Urinary tract infection Surgical History Previous back surgery S/P tonsillectomy Family History Other Coronary heart disease Myocardial infarction Social History Smoking Status: Never smoker Second Hand Exposure: No; Do You Dip or Chew Tobacco: No; Hx Alcohol Use: No Hx Substance Use: Yes Substance Use Type Other:: legal marijuana Preferred Language: Guamanian Communication Ability: Effective Irrigation Equipment Remover Required: No Beliefs That Will Affect Care: None marital status: Current Living Situation: Spouse current occupational status: disabled Other Information That Helps Us Care for You: No Feels Safe at Home: Yes Safety Concerns: Feels Safe At This Time Safety Concerns Comment: Pt states her is verbally abusive. caffeine: No Dental Care, Regularly: Yes Physical Activity Frequency: 1-2 Times per Week Seatbelt Use: always Sunscreen Use: No Assistive Devices: Cane and Glasses Review of Systems Review of Systems: All systems reviewed & are unremarkable except as noted in HPI & below Physical Exam Physical Exam: Constitutional: No acute distress HEENT: EOMI, PERRLA Respiratory system: Decreased air entry bilaterally, no wheeze, no rhonchi, mild crackles bilateral lower lobe CVS: S1-S2 positive, no murmurs or gallops, tachycardia Abdomen: Soft, nontender, nondistended, positive bowel sounds x4, obese Extremities: +2 pulses bilaterally radialis/ dorsalis pedis, no cyanosis, no edema Neuro: Awake alert oriented x3 Psych: Normal mood and affect G/U: No Mcgarry Skin: no rashes, warm and dry Lymphatic: no cervical or axillary lymphadenopathy Results & Data Results & Data ([facility]) Vital Signs (Past 12 Hours) Vital Signs Temp Pulse Pulse Resp BP BP Pulse Ox 01/04/21 09:00 118 H 18 156/99 H 95 01/04/21 07:34 125 H 18 134/81 93 01/04/21 06:52 36.9 C 124 H 21 140/112 H 96 01/04/21 06:45 126 H 21 95 01/04/21 06:28 36.9 C 131 H 21 140/112 H 93 01/04/21 06:43 01/04/21 07:00 PG Care Time/CCT Total # of Minutes Spent Total Time Spent with Patient: Total time spent is greater than 50% in coordination of care (as documented) at patient's floor/unit and/or counseling patient: Coding Level of Care Code 73108 Inpt Consult Level 5 Diagnoses Acute saddle pulmonary embolism I26.92 Acute cor pulmonale presence: unspecified Tachycardia R00.0 Shortness of breath R06.02 Time Spent (min) 110
[2021-01-04] MEDS ORDERED: PRIMARY PLUMSET, PE LINED TUBING, 113 IN, NON-DEHP (2260-0500) IV STA (12:21)
[2021-01-04] MEDS ORDERED: DC ALL ANTICOAGULANTS STA (12:21)
[2021-01-04] MEDS ORDERED: METOPROLOL TARTRATE 50 MG TAB PO STA (12:24)
[2021-01-04] MEDS: OXYBUTYNIN CHLORIDE 5 MG TAB PO SCH ×2 (12:27→13:41)
[2021-01-04] MEDS ORDERED: ICU PROTOCOL FOR HYPERGLYCEMIA PRN (12:37)
[2021-01-04] MEDS ORDERED: ALTEPLASE, RECOMBINANT 50 MG in EMPTY BAG 0 ML IV ONE (13:00)
[2021-01-04] MEDS: GABAPENTIN 300 MG CAP PO SCH ×2 (13:41→16:42)
[2021-01-04] MEDS: CARISOPRODOL 350 MG TABLET PO SCH ×2 (13:41→18:51)
[2021-01-04 13:55] LABS: INR 1.2 (0.9-1.1); Partial Thromboplastin Ratio 1.5; Partial Thromboplastin Time 40.3 Seconds (21.0-31.0); Prothrombin Time 12.2 Seconds (9.0-12.0)
[2021-01-04] MEDS ORDERED: PANTOprazole 40 MG in SYRINGE 0 ML IV ONE (14:45)
[2021-01-04] MEDS ORDERED: SODIUM CHLORIDE 0.9% 50 ML BAG IV ONE (15:00)
[2021-01-04] MEDS ORDERED: METOPROLOL TARTRATE 1 MG/ML VIAL IV PRN (15:40)
[2021-01-04] MEDS ORDERED: Heparin IV Adult Wt-Based Low-Dose *NO* Bolus Protocol IV SCH (16:00)
[2021-01-04] MEDS ORDERED: METOPROLOL TARTRATE 1 MG/ML VIAL IV SCH (16:00)
[2021-01-04 16:07] LABS: Hematocrit (blood only) 39.4 % (37-47); Hemoglobin 12.8 g/dL (12.0-16.0); Mean Corpuscular Hemoglobin 29.5 pg (25-34); Mean Corpuscular Hgb Conc 32.5 g/dL (32-36); Mean Corpuscular Volume 90.8 fL (80-100); Mean Platelet Volume 11.5 fL (7.4-10.4); Platelet Count 228 K/uL (130-400); RDW Coefficient of Variation 15.4 % (11.5-14.5); RDW Standard Deviation 51.4 fL (36.4-46.3); Red Blood Count 4.34 M/uL (4.2-5.4)
[2021-01-04 16:10] LABS: Partial Thromboplastin Ratio 1.6
[2021-01-04] MEDS ORDERED: *Start* Heparin IV Low Dose IV ONE (16:14)
[2021-01-04] MEDS: HEPARIN SODIUM/DEXTROSE 25,000 UNITS/500 ML BAG IV SCH ×2 (16:41→18:10)
[2021-01-04 17:15] LABS: Hematocrit (blood only) 39.5 % (37-47); Hemoglobin 12.9 g/dL (12.0-16.0)
--- NOTE | 2021-01-04 17:15 | XCELERA ---
[id number]
--- NOTE | 2021-01-04 17:32 | Communication Note ---
Date of Service: January 04, 2021 Critical CARE addendum: Was called to evaluate the patient as there was developing hematoma at the site of the surgery which the patient had on 12/20/2020. Patient had finished the 2 hours of 50 mg TPA which was given peripherally. Heparin has not been restarted yet. The site was tender. There was no neurological deficit appreciated. Patient was complaining of pain at the site. Patient was moving bilateral upper and lower extremities. Patient's blood pressure was systolic 130s, heart rate in the high 90s. I will get a stat H&H. Will type and screen Hold heparin. Send the patient to CT of the thoracic spine to see the extent of the hematoma. Case was discussed with Dr Morrison from [facility] who accepted the patient. [facility] Patient's was also called and updated regarding the finding. All questions inquiries of the patient as well as patient's were answered in depth. Dr. Philippe was also updated. I have personally spent 75 minutes of critical care time in the direct management of this patient. This is a life/limb threatening event. This includes time spent evaluating patient, direct bedside care, chart review, placing orders, interpretation of diagnostic studies, discussion with consultants, patient, and family members, as well as other required patient management activities. This time is exclusive of all separately billable procedures, and teaching time and separate from and in addition to any other critical care service time. Please note the above document was generated using voice recognition software. It may contain grammatical, syntax or spelling errors. Coding Level of Care Code Critical Care 1st 30-74 mins Time Spent (min) 75
--- NOTE | 2021-01-04 17:49 | CT Scan Report ---
CT thoracic spine wo con HISTORY: 60 years-old Female bleed acute back pain with recent surgery COMPARISON: CTA chest of same day TECHNIQUE: Multiple axial CT images of the thoracic spine were obtained without the use of IV contras t. A dose lowering technique was used consistent with the principals of JULIAN. FINDINGS: Scattered vertebral body hemangiomas throughout the thoracic spine. No acute fracture, subluxation, s uspicious bone lesion or significant intervertebral disc space narrowing. No high-grade central canal or neuroforaminal narrowing identified. Retained contrast is noted within the renal collecting syste ms. Coronary artery calcifications. Moderate sized hiatal hernia. 5 mm solid nodule of the right uppe r lobe. Subpleural bibasilar groundglass and reticular opacities suggest a combination of atelectasis with scarring. 1.3 cm hypodensity of the posterior right hepatic lobe may reflect a cyst. Partially imaged battery pack of the right lower back. Spinal stimulator leads enter the central bereket l at the level of T10-T11 with distal tip of the device within the central canal to level of T8. Ther e is ill-defined stranding along the posterior elements measuring up to 4.5 x 1.7 x 5.0 cm which has progressed from the study earlier today. Additional subcutaneous collection with intermixed foci of a ir noted at the midline measuring up to 2.6 x 2.1 x 10.1 cm which is also progressed from comparison. No epidural hematoma identified. IMPRESSION: 1. Spinal stimulator device is present with leads entering the central canal at the level of T10-T11 with distal tip at the level of T8. There is suggested hematoma surrounding the stimulator leads as a grant including a subcutaneous hematoma measuring up to 10.1 cm in length, new/progressed from the CTA chest study of same day. 2. Additional findings as above. ACT 112: Negative or not required by law. The above report was generated using voice recognition software. It may contain grammatical, syntax o r spelling errors. Electronically signed by: Perez Day M.D. 01/04/2021 5:47 PM
[2021-01-04] MEDS ORDERED: MoRPHine SULFATE 2 MG/ML CARP IV PRN (18:45)
[2021-01-04 20:06] LABS: iSTAT Arterial Blood Gas HCO3 26 meg/L (19-24); iSTAT Arterial Blood Gas pCO2 31 mmHg (35-46); iSTAT Arterial Blood Gas pH 7.52 (7.35-7.45); iSTAT Arterial Blood Gas pO2 < 32 mmHg (80-95); iSTAT Carbon Dioxide 27 mmol/L (24-31); iSTAT Hematocrit 38 % (37-47); iSTAT Hemoglobin 12.9 g/dl (12.0-16.0); iSTAT Potassium 5.4 mmol/L (3.3-5.0); iSTAT Sodium 141 mmol/L (135-144)
--- NOTE | 2021-01-05 06:33 | Electrocardiogram Report ---
Test Reason : Blood Pressure : / mmHG Vent. Rate : 125 BPM Atrial Rate : 125 BPM P-R Int : 116 ms QRS Dur : 084 ms QT Int : 324 ms P-R-T Axes : 063 063 163 degrees QTc Int : 467 ms Sinus tachycardia Possible Left atrial enlargement Possible Inferior infarct Abnormal ECG When compared with ECG of 17-AUG-2018 19:17, Vent. rate has increased BY 52 BPM T wave inversion now evident in Anterior leads Confirmed by Enrique Muñoz ([id number]) on 01/05/2021 6:32:35 AM Referred By: REFERRED SELF Confirmed By:Enrique Muñoz
[2021-01-05] MEDS ORDERED: PANTOprazole 40 MG TAB PO SCH (09:00)
[2021-01-05] MEDS ORDERED: ADVANCED PROBIOTIC 1250 MG CAPSULE PO SCH (09:00)
--- NOTE | 2021-01-05 10:35 | Discharge Summary ---
Date of Service January 04, 2021 Admission HPI Per Admitting Provider Bonnie Carmen is a 60-year-old female who presents to the ER due to decreased appetite, chills, nonproductive cough, shortness of breath, back pain s/p surgery 12/20/[address] [place] [address] Gunn. She previously tested positive for COVID-19 and was unwell with respiratory symptoms starting November 24. She feels as if her symptoms are similar to her prior COVID-19 infection. No chest pain, orthopnea, objective fevers, abdominal pain, nausea, vomiting, diarrhea or urinary symptoms. She denies any leg pain or swelling. She reports progressively worsening shortness of breath and decreased appetite since her surgery on 12/20/2020 - she reports this was for spinal stimulator insertion although is unclear on the exact details. She reports multiple prior back surgeries for back pain without radicular, urinary or bowel symptoms. In the ER CT for PE showed a saddle embolus. She was started on heparin IV standard bolus and drip. She was referred to medicine for admission and ongoing management or pulmonary embolism. Discharge Data Allergies Allergy/AdvReac Type Severity Reaction Status Date / Time cephalexin Allergy Unknown ` Verified 03/30/20 14:40 ciprofloxacin [From Cipro] Allergy Unknown Unknown Unverified 01/04/21 14:13 naproxen Allergy Unknown ` Verified 03/30/20 14:40 Sulfa (Sulfonamide Allergy Unknown ` Verified 03/30/20 14:40 Antibiotics) cranberry Allergy Unknown Verified 01/04/21 14:13 hydrochlorothiazide Allergy Unknown Verified 01/04/21 14:13 [From HydroDiuril] lamotrigine Allergy Unknown Verified 01/04/21 14:13 nitrofurantoin Allergy Unknown Verified 01/04/21 14:13 [From Macrodantin] duloxetine AdvReac Mild heart Verified 03/30/20 14:56 racing NSAIDS (Non-Steroidal AdvReac Unknown UNKNOWN Unverified 03/30/20 14:40 Anti-Inflamma topiramate AdvReac Unknown arms Verified 03/30/20 14:40 became severly cold sertraline AdvReac Unknown Verified 01/04/21 14:13 tramadol AdvReac Unknown Verified 01/04/21 14:13 venlafaxine AdvReac Unknown Verified 01/04/21 14:13 Consultations 01/04/21 07:36 ED Decision to Admit Stat 01/04/21 12:37 Consult Group Segment Consultant Routine 01/04/21 17:11 Consult Health Information Management Stat 01/04/21 17:26 Burn CD for patient Stat Ordered Studies 01/04/21 06:43 CT angio chest PE protocol Stat 01/04/21 16:49 CT thoracic spine wo con Stat Hospital Course (1) Acute saddle pulmonary embolism: Admit to PCU, blood pressure is stable and maintaining O2 sats on room air despite large saddle embolus present Continue Heparin standard IV bolus and drip TTE Stat ABG Consult pulmonology (2) Tachycardia: Secondary to PE as above, possible rebound tachycardia from not taking metoprolol last night (3) Shortness of breath: As above (4) Hypertension: Hold metoprolol (5) Asthma: No acute exacerbation Albuterol PRN (6) Previous back surgery: Continue her usual gabapentin, carisoprodol and oxycodone (7) Stress incontinence: Continue oxybutynin (8) GERD (gastroesophageal reflux disease): Switch omeprazole to pantoprazole per hospital formulary Discharge Plan Discharge Items Patient Disposition: Transfer Acute Care Hospital Reason For Visit: SADDLE PULMONARY EMBOLISM Discharge Diagnosis: Saddle pulmonary Embolism Back Hematoma Activity: Per Instructions section Non-emergency contact: Primary Care Provider Call non-emergency contact if: you have any medication questions and your symptoms worsen Follow-up/Referrals: Theresa Sterling CRNP [Primary Care Provider] - Diet: Other - See Diet Comment Addtl Attending Provider Instructions: Patient admitted and discharged the same day on January 04, 2021. Saddle pulmonary embolus on CT. large mobile clot in right atria on echocardiogram therefore tPA given. Subsequent hematoma surrounding recent spinal stimulator insertion with external hemorrhage. No motion picture critic orthopedics here therefore decision to transfer to [facility]. Pending Studies at Discharge: No Stand-Alone Forms: My [facility] Skilled Items Patient informed of condition?: Yes DNR: No Discharge Level of Care: Other Communicable Disease: No Discharge Prognosis: Stable Lines: Peripheral IV Urinary Catheter: Yes Medications and DC Order Prescriptions: Continued cholecalciferol (vitamin D3) 50,000 unit capsule 50,000 units PO WEEKLY Qty: 30 RF: 0 gabapentin 300 mg capsule 300 mg PO .COMPLEX Qty: 150 RF: 11 albuterol sulfate [ProAir HFA] 90 mcg/actuation HFA aerosol inhaler 2 puff INH QID PRN (Reason: shortness of breath or wheezing) Qty: 8 RF: 3 miscellaneous medical supply Misc 1 ea miscellaneous PRN Qty: 1 RF: 0 epinephrine [EpiPen] 0.3 mg/0.3 mL auto-injector 0.3 mg IM .QUD PRN (Reason: bronchodilation) Qty: 1 RF: 1 oxybutynin chloride 5 mg tablet 5 mg PO TID Qty: 90 RF: 8 Probiotic 3 billion cell Capsule 1 cap PO DAILY RF: 0 carisoprodol 350 mg tablet 350 mg PO QID RF: 0 oxycodone 10 mg tablet 10 mg PO BID RF: 0 Horizant 600 mg tablet extended release 600 mg PO HS RF: 0 tolterodine 2 mg tablet 2 mg PO BID RF: 0 metoprolol tartrate 50 mg tablet 50 mg PO HS RF: 0 omeprazole 20 mg capsule,delayed release(DR/EC) 20 mg PO DAILY PRN (Reason: reflux) RF: 0 Discharge Orders: Discharge Order (Routine); Ordered 01/04/21 Ordered By: Keenan Philippe Admission Data Admit Date/Time: 01/04/21 08:48 Attending Provider: Keenan Philippe Admit Provider: Keenan Philippe Primary Care Provider: Theresa Sterling Other Providers: Keenan Philippe ; Brii Frankel Other Interventions: Discharge Summary Assessment (RN) Last Done: 01/04/21 19:12 Coding Diagnoses Acute saddle pulmonary embolism I26.92 Acute cor pulmonale presence: unspecified Tachycardia R00.0 Shortness of breath R06.02 Hypertension I10 Asthma J45.909 Previous back surgery Z98.890 Stress incontinence N39.3 GERD (gastroesophageal reflux disease) K21.9
== END 2021-01-04 20:14 | disposition short-term general hospital (02) | DRG 176 ==
LOC: ED 06:11 → 1E 08:48

== ENCOUNTER 2021-02-03 17:18 | Inpatient (IN) ==
--- NOTE | 2021-02-03 18:05 | Emergency Department Note ---
History of Present Illness General Chief complaint: Leg Injury/Pain Stated complaint: SENT BY HAS A BLOOD CLOT IN LEG Time Seen by Provider: 02/03/21 17:49 History of Present Illness Maximum Pain Intensity: 7 This is a 60-year-old female that presents to the emergency department via private vehicle with complaints of "referred by , Left leg DVT". The patient states that about 1 month ago she had blood clots in her lungs. She was started on Eliquis. She has been compliant with her medication. She notes over the past 3 weeks she has been experiencing worsening left lower extremity edema. She states that she had an outpatient performed of her left leg today and was notified of an acute DVT and sent here for hospitalization and further evaluation and management. Patient does note left leg discomfort as well as some minor chest discomfort. She also feels short of breath at times. She denies any known trauma or injury. She does note that in the recent past she did have spine surgery and has had a total of 5 back surgeries. Home Medications Medication Instructions Recorded Confirmed Type Probiotic 1 cap PO DAILY 08/17/18 02/03/21 History carisoprodol 350 mg tablet 350 mg PO QID 03/30/20 02/03/21 History oxybutynin chloride 5 mg tablet 5 mg PO TID #90 tab 11/16/20 02/03/21 Rx oxycodone 10 mg PO Q6 PRN 01/04/21 02/03/21 History tolterodine 2 mg PO BID 01/04/21 02/03/21 History escitalopram oxalate 10 mg tablet 10 mg PO DAILY #30 tab 01/26/21 02/03/21 Rx omeprazole 20 mg capsule,delayed 20 mg PO DAILY PRN #30 cap 01/26/21 02/03/21 Rx release albuterol sulfate 90 mcg/actuation 2 puff INH QID PRN #8 g 02/03/21 02/03/21 Rx aerosol inhaler apixaban 5 mg tablet 5 mg PO BID 02/03/21 02/03/21 History gabapentin 300 mg PO BID 02/03/21 02/03/21 History gabapentin 600 mg PO HS 02/03/21 02/03/21 History Allergies Allergy/AdvReac Type Severity Reaction Status Date / Time cephalexin Allergy Unknown ` Verified 02/03/21 12:46 ciprofloxacin [From Cipro] Allergy Unknown Unknown Verified 02/03/21 12:46 naproxen Allergy Unknown ` Verified 02/03/21 12:46 Sulfa (Sulfonamide Allergy Unknown ` Verified 02/03/21 12:46 Antibiotics) adhesive tape Allergy makes skin Verified 02/03/21 20:04 red & swollen cranberry Allergy Unknown Verified 02/03/21 12:46 hydrochlorothiazide Allergy Unknown Verified 02/03/21 12:46 [From HydroDiuril] lamotrigine Allergy Unknown Verified 02/03/21 12:46 nitrofurantoin Allergy Unknown Verified 02/03/21 12:46 [From Macrodantin] duloxetine AdvReac Mild heart Verified 02/03/21 12:46 racing NSAIDS (Non-Steroidal AdvReac Unknown UNKNOWN Verified 02/03/21 12:46 Anti-Inflamma topiramate AdvReac Unknown arms Verified 02/03/21 12:46 became severly cold sertraline AdvReac Unknown Verified 02/03/21 12:46 tramadol AdvReac Unknown Verified 02/03/21 12:46 venlafaxine AdvReac Unknown Verified 02/03/21 12:46 Past Med/Surg History Medical History Asthma DVT (deep venous thrombosis) GERD (gastroesophageal reflux disease) Headache Hypertension Post lumbar puncture headache Pulmonary embolism Surgical History Previous back surgery S/P tonsillectomy Family History (Updated 02/03/21 @ 23:50 by Sue Price DO) Other Coronary heart disease Factor V Leiden Myocardial infarction Social History Smoking Status: Never smoker Second Hand Exposure: No; Hx Alcohol Use: No Hx Substance Use: No Preferred Language: Vietnamese Communication Ability: Effective Drapery Estimator Required: No Beliefs That Will Affect Care: None marital status: Current Living Situation: Spouse current occupational status: disabled Feels Safe at Home: Yes Safety Concerns Comment: Pt states her is verbally abusive. caffeine: No Dental Care, Regularly: Yes Physical Activity Frequency: 1-2 Times per Week Seatbelt Use: always Sunscreen Use: No Assistive Devices: Cane Review of Systems A total of 10 systems reviewed and were otherwise negative Physical Exam Vital Signs Vital Signs - 24 hr 02/03/21 17:29 02/03/21 18:38 02/03/21 19:00 Temperature 36.8 C Temperature Source Oral Pulse Rate 109 H 88 80 Respiratory Rate 18 21 22 Blood Pressure 140/75 145/88 H 153/86 H Blood Pressure Mean 96 107 108 Pulse Oximetry 95 94 94 Oxygen Delivery Method Room Air Sepsis Recent Fever Within 48 Hours No Sepsis New/Unexplained Change in Mental Status No Sepsis Action Taken by Nursing No Action Required 02/03/21 19:15 02/03/21 19:30 02/03/21 20:01 Temperature Temperature Source Pulse Rate 86 78 Respiratory Rate 22 18 Blood Pressure 164/115 H 140/94 Blood Pressure Mean 131 109 Pulse Oximetry 95 96 96 Oxygen Delivery Method Room Air Sepsis Recent Fever Within 48 Hours Sepsis New/Unexplained Change in Mental Status Sepsis Action Taken by Nursing 02/03/21 20:46 02/03/21 20:56 02/03/21 21:00 Temperature Temperature Source Pulse Rate 75 81 70 Respiratory Rate 17 22 19 Blood Pressure 176/115 H 184/122 H 176/97 H Blood Pressure Mean 135 142 123 Pulse Oximetry 98 98 98 Oxygen Delivery Method Sepsis Recent Fever Within 48 Hours Sepsis New/Unexplained Change in Mental Status Sepsis Action Taken by Nursing VITAL SIGNS - Vital signs and nursing notes were reviewed. Stable and afebrile. GENERAL -60-year-old female appearing her stated age who is in no acute distress. Communicates well with provider and answers questions appropriately. SKIN - Without rashes. Mild left lower extremity edema noted. HEAD - NC/AT. EYES - Sclera anicteric. EARS - No deformities of external structures noted on gross examination bilaterally. MOUTH/OROPHARYNX - Without perioral cyanosis. NECK - Neck with FROM. No nuchal rigidity. LUNGS - Chest wall symmetric without accessory muscle use, intercostals retractions, or central cyanosis. Normal vesicular breath sounds CTA B/L. No wheezes, rales, or rhonchi appreciated. CARDIAC - RRR with S1/S2. No murmur, rubs, or gallops appreciated. EXTREMITIES - No clubbing or peripheral cyanosis. No pretibial edema present. +5/5 strength noted in UE/LE bilaterally. NEUROLOGIC - Cranial nerves II through XII grossly intact. PSYCH - A&O, and cooperates fully with examiner. Pt is very pleasant and interacts well with examiner. Course Administered Medications Carisoprodol (Carisoprodol 350 Mg Tablet) 350 mg PO QID [facility] Stop: 03/06/21 01:59 Last Admin: 02/04/21 02:11 Dose: 350 mg Documented by: [id number] Gabapentin (Gabapentin 300 Mg Cap) 600 mg PO HS [facility] Stop: 03/06/21 01:59 Last Admin: 02/04/21 01:53 Dose: 600 mg Documented by: [id number] Heparin Sodium/Dextrose (Heparin Sodium/Dextrose) 25,000 units in 500 mls @ 25 mls/hr IV .Q20H [facility]; Protocol Stop: 03/06/21 00:57 Last Admin: 02/04/21 01:29 Dose: 1,250 units/hr, 25 mls/hr Documented by: [id number] Cosigned by: [id number] Oxybutynin Chloride (Oxybutynin Chloride 5 Mg Tab) 5 mg PO TID [facility] Stop: 03/06/21 01:44 Last Admin: 02/04/21 01:54 Dose: 5 mg Documented by: [id number] Tolterodine Tartrate (Tolterodine Tartrate 2 Mg Tab) 2 mg PO BID [facility] Stop: 03/06/21 01:59 Last Admin: 02/04/21 01:54 Dose: 2 mg Documented by: [id number] Discontinued Medications Fosfomycin Tromethamine (Fosfomycin Tromethamine 3 Gm Packet) 3 gm PO TODAY@0030 [facility] Stop: 02/04/21 00:31 Last Admin: 02/04/21 01:52 Dose: 3 gm Documented by: [id number] Heparin Sodium (Porcine) (Heparin Sod (Porcine) 1000 Unit/Ml) 6,000 units IV NOW ONE Stop: 02/04/21 00:59 Last Admin: 02/04/21 01:28 Dose: 6,000 units Documented by: [id number] Cosigned by: [id number] Heparin Sodium/Dextrose (Heparin 94826 Unit/500 Ml D5w) Confirm Administered Dose 25,000 units IV .STK-MED ONE Stop: 02/03/21 21:47 Last Admin: 02/04/21 01:31 Dose: Not Given Documented by: [id number] Ioversol (Optiray 350 500ml) 112 ml IV ONCE ONE Stop: 02/03/21 20:27 Last Admin: 02/03/21 20:26 Dose: 112 ml Documented by: [id number] Morphine Sulfate (Morphine Sulfate 4 Mg/Ml 1 Ml Carp\\Vial) 4 mg IV NOW STA Stop: 02/03/21 19:29 Last Admin: 02/03/21 19:37 Dose: 4 mg Documented by: [id number] Medical Decision Making Laboratory Data Result diagrams: 02/03/21 18:21 02/03/21 18:21 Lab Results 02/03/21 02/03/21 02/03/21 Range/Units 18:21 18:21 18:21 WBC 4.79 L (4.8-10.8) K/uL RBC 4.35 (4.2-5.4) M/uL Hgb 12.3 (12.0-16.0) g/dL Hct 39.5 (37-47) % MCV 90.8 (80-100) fL MCH 28.3 (25-34) pg MCHC 31.1 L (32-36) g/dL RDW Std Deviation 53.4 H (36.4-46.3) fL RDW Coeff of Cynthia 16.1 H (11.5-14.5) % Plt Count 261 (130-400) K/uL MPV 10.7 H (7.4-10.4) fL Immature Gran % (Auto) 0.2 % Neut % (Auto) 52.6 % Lymph % (Auto) 35.7 % Churchill % (Auto) 8.8 % Eos % (Auto) 2.1 % Baso % (Auto) 0.6 % Neut # (Auto) 2.52 (1.4-6.5) K/uL Lymph # (Auto) 1.71 (1.2-3.4) K/uL Churchill # (Auto) 0.42 (0.11-0.59) K/uL Eos # (Auto) 0.10 (0-0.5) K/uL Baso # (Auto) 0.03 (0-0.2) K/uL Immature Gran # (Auto) 0.01 (0.00-0.02) K/uL PT 10.9 (9.0-12.0) Seconds INR 1.1 (0.9-1.1) APTT 24.0 (21.0-31.0) Seconds PTT Ratio 0.9 Sodium 145 (136-145) mmol/L Potassium 3.6 (3.5-5.1) mmol/L Chloride 112 H (98-107) mmol/L Carbon Dioxide 26 (21-32) mmol/L Anion Gap 7.0 (3-11) BUN 10 (7-18) mg/dl Creatinine 0.98 (0.6-1.2) mg/dl Est Cr Clr Drug Dosing 68.4 ml/min Est GFR ( Amer) 72.7 ml/min Est GFR (Non-Af Amer) 62.7 ml/min BUN/Creatinine Ratio 10.2 (10-20) Glucose 100 H (70-99) mg/dl Calcium 9.4 (8.5-10.1) mg/dl Magnesium 2.2 (1.8-2.4) mg/dl Total Bilirubin 0.3 (0.2-1) mg/dl AST 18 (15-37) U/L ALT 21 (12-78) U/L Alkaline Phosphatase 89 (45-117) U/L Troponin I < 0.015 (0-0.045) ng/ml Total Protein 6.8 (6.4-8.2) gm/dl Albumin 3.6 (3.4-5.0) gm/dl Globulin 3.2 (2.5-4.0) gm/dl Albumin/Globulin Ratio 1.1 (0.9-2) COVID-19 Eval Order SARS-CoV-2 (PCR) (Negative) 02/03/21 02/03/21 Range/Units 19:13 19:13 WBC (4.8-10.8) K/uL RBC (4.2-5.4) M/uL Hgb (12.0-16.0) g/dL Hct (37-47) % MCV (80-100) fL MCH (25-34) pg MCHC (32-36) g/dL RDW Std Deviation (36.4-46.3) fL RDW Coeff of Cynthia (11.5-14.5) % Plt Count (130-400) K/uL MPV (7.4-10.4) fL Immature Gran % (Auto) % Neut % (Auto) % Lymph % (Auto) % Churchill % (Auto) % Eos % (Auto) % Baso % (Auto) % Neut # (Auto) (1.4-6.5) K/uL Lymph # (Auto) (1.2-3.4) K/uL Churchill # (Auto) (0.11-0.59) K/uL Eos # (Auto) (0-0.5) K/uL Baso # (Auto) (0-0.2) K/uL Immature Gran # (Auto) (0.00-0.02) K/uL PT (9.0-12.0) Seconds INR (0.9-1.1) APTT (21.0-31.0) Seconds PTT Ratio Sodium (136-145) mmol/L Potassium (3.5-5.1) mmol/L Chloride (98-107) mmol/L Carbon Dioxide (21-32) mmol/L Anion Gap (3-11) BUN (7-18) mg/dl Creatinine (0.6-1.2) mg/dl Est Cr Clr Drug Dosing ml/min Est GFR ( Amer) ml/min Est GFR (Non-Af Amer) ml/min BUN/Creatinine Ratio (10-20) Glucose (70-99) mg/dl Calcium (8.5-10.1) mg/dl Magnesium (1.8-2.4) mg/dl Total Bilirubin (0.2-1) mg/dl AST (15-37) U/L ALT (12-78) U/L Alkaline Phosphatase (45-117) U/L Troponin I (0-0.045) ng/ml Total Protein (6.4-8.2) gm/dl Albumin (3.4-5.0) gm/dl Globulin (2.5-4.0) gm/dl Albumin/Globulin Ratio (0.9-2) COVID-19 Eval Order Covid19 at [facility] SARS-CoV-2 (PCR) NEGATIVE (Negative) Imaging Data Radiologist's Impression: Chest CTA 02/03/21 18:00 CT ANGIOGRAM OF THE CHEST CLINICAL HISTORY: DVT. Shortness of breath. Chest pain. COMPARISON STUDY: 01/04/2021 TECHNIQUE: Following the IV administration of 112 mL of Optiray, CT angiogram of the thorax was performed from the thoracic inlet to the lung bases utilizing the pulmonary embolus protocol. Images are reviewed in the axial, sagittal, and coronal planes. IV contrast was administered without complication. MIP imaging was performed. A dose lowering technique was utilized adhering to the principles of ALARA. CT DOSE: 494.80 mGycm FINDINGS: There is a moderate to large hiatal hernia. There are multiple hypodense hepatic lesions including an indeterminate 28 mm right lobe hepatic mass. An MRI the liver is recommended in follow-up. No pathologically enlarged axillary mediastinal or hilar lymph nodes were visualized. There was no evidence of thoracic aortic dilatation. There are bilateral pulmonary artery filling defects, likely representing res idua from the patient's large previously described saddle embolus. Without a posttreatment baseline, it is obvious is not possible to exclude small new emboli. The overall thrombus burden is markedly decreased when compared the prior study. No pleural effusions are visualized. There are no significant pleural effusions. There are basilar atelectatic changes. There is a stable 5 mm right upper lobe pulmonary nodule. A spinal stimulator is visualized. IMPRESSION: 1. Bilateral pulmonary artery filling defects, likely representing residua from the patient's previously described large saddle embolus. 2. It is obviously not possible to exclude new emboli without a posttreatment baseline. The overall thrombus burden is however markedly decreased when compared the prior study. 3. Stable 5 mm right upper lobe pulmonary nodule 4. Moderate to large hiatal hernia 5. Indeterminate hepatic masses including a 28 mm right hepatic lobe lesion. A dedicated MRI the liver is recommended in follow-up.. ACT 112: Positive. There are findings on this exam that require communication between the performing entity and the patient following Patient Test Result Information Act ([place] Act 112) guidelines. Electronically signed by: Marlo Munguia M.D. 02/03/2021 8:45 PM [facility] Narrative Patient was seen and evaluated as above in room B03. Review was performed of nursing notes and vital signs. I did review pertinent previous visits and patient history. After obtaining a thorough history and physical examination the above work up was performed. Patient presents to us today over concern for potential acute DVT of the left lower extremity in the setting of Eliquis compliance. Patient was referred by Dr. Adan. Patient denies any acute complaints at this time. She appears to be overall stable. Options of care were discussed with the patient. I will note that the physician that referred the patient did speak with the ED attending physician prior to the patient arriving here to the ED today. I did review the patient's recent visit. IV access established. Labs were drawn. Mild leukopenia 4.79 without concerning anemia. No emergent metabolic disturbance. Nitrites in the urine are positive with 4+ bacteria. COVID-19 testing is negative. CTA of the chest was obtained given the patient's complaint of some shortness of breath with the left lower extremity DVT noted on outpatient ultrasound. CTA results as above. Per review of outpatient record it does appear that the patient will benefit from further evaluation and management in the inpatient setting. Case discussed with the hospitalist. Please refer to further documentation regarding her stay. Case was discussed with the attending physician. EKG was reviewed by myself and found to be Normal Sinus Rhythm at a rate of 88 beats per minute and per my interpretation reveals no ST elevation. QTc 442. QRS 76. An order was placed for continuous cardiac monitoring. The monitor shows a rate of 70 with sinus rhythm. GCS: 15 In the evaluation and treatment of this patient the following differential diagnoses were entertained: Acute thrombus in the setting of anticoagulation compliance, symptomatic chronic left lower extremity DVT in the setting of anticoagulation, ID, PE, ACS, among others. Impression & Plan DVT (deep venous thrombosis), Edema of left lower extremity Discharge Plan Visit Data Chief Complaint: Leg Injury/Pain Stated Complaint: SENT BY HAS A BLOOD CLOT IN LEG ED Provider: Dominik Lazo ED Midlevel Provider: David Garcia Discharge Problem: DVT (deep venous thrombosis), Edema of left lower extremity Patient Disposition: Admitted As Inpatient Condition: Good Discharge Instructions Interventions: ED Discharge Assessment Last Done: 02/04/21 00:30
[2021-02-03 18:48] LABS: Basophils # (auto) 0.03 K/uL (0-0.2); Basophils % (auto) 0.6 %; Eosinophils % (auto) 2.1 %; Hematocrit (blood only) 39.5 % (37-47); Hemoglobin 12.3 g/dL (12.0-16.0); Immature Granulocytes # (auto) 0.01 K/uL (0.00-0.02); Immature Granulocytes % (auto) 0.2 %; Lymphocytes # (auto) 1.71 K/uL (1.2-3.4); Lymphocytes % (auto) 35.7 %; Mean Corpuscular Hemoglobin 28.3 pg (25-34); Mean Corpuscular Hgb Conc 31.1 g/dL (32-36); Mean Corpuscular Volume 90.8 fL (80-100); Mean Platelet Volume 10.7 fL (7.4-10.4); Monocytes # (auto) 0.42 K/uL (0.11-0.59); Monocytes % (auto) 8.8 %; Neutrophils # (auto) 2.52 K/uL (1.4-6.5); Neutrophils % (auto) 52.6 %; Platelet Count 261 K/uL (130-400); RDW Coefficient of Variation 16.1 % (11.5-14.5); RDW Standard Deviation 53.4 fL (36.4-46.3); Red Blood Count 4.35 M/uL (4.2-5.4); White Blood Count 4.79 K/uL (4.8-10.8)
[2021-02-03 19:00] LABS: INR 1.1 (0.9-1.1); Partial Thromboplastin Ratio 0.9; Prothrombin Time 10.9 Seconds (9.0-12.0)
[2021-02-03 19:08] LABS: Alanine Aminotransferase 21 U/L (12-78); Albumin Level 3.6 gm/dl (3.4-5.0); Aspartate Aminotransferase 18 U/L (15-37); BUN Creatinine Ratio 10.2 (10-20); Blood Urea Nitrogen 10 mg/dl (7-18); Calcium 9.4 mg/dl (8.5-10.1); Carbon Dioxide 26 mmol/L (21-32); Chloride 112 mmol/L (98-107); Creatinine Clr Calc Pharmacy 68.4 ml/min; Est GFR (African American) 72.7 ml/min; Est GFR (Non-African American) 62.7 ml/min; Glucose 100 mg/dl (70-99); Magnesium 2.2 mg/dl (1.8-2.4); Potassium 3.6 mmol/L (3.5-5.1); Sodium 145 mmol/L (136-145)
[2021-02-03 19:13] LABS: Albumin Globulin Ratio 1.1 (0.9-2); Alkaline Phosphatase 89 U/L (45-117); Bilirubin,Total 0.3 mg/dl (0.2-1); Globulin 3.2 gm/dl (2.5-4.0); Total Protein 6.8 gm/dl (6.4-8.2); Troponin I < 0.015 ng/ml (0-0.045)
[2021-02-03] MEDS ORDERED: MoRPHine SULFATE 4 MG/ML 1 ML CARP\\VIAL IV STA (19:28)
[2021-02-03] MEDS ORDERED: OPTIRAY 350 500ml IV ONE (20:26)
--- NOTE | 2021-02-03 20:47 | CT Scan Report ---
CT ANGIOGRAM OF THE CHEST CLINICAL HISTORY: DVT. Shortness of breath. Chest pain. COMPARISON STUDY: 01/04/2021 TECHNIQUE: Following the IV administration of 112 mL of Optiray, CT angiogram of the thorax was perfo rmed from the thoracic inlet to the lung bases utilizing the pulmonary embolus protocol. Images are r eviewed in the axial, sagittal, and coronal planes. IV contrast was administered without complication . MIP imaging was performed. A dose lowering technique was utilized adhering to the principles of [place]. CT DOSE: 494.80 mGycm FINDINGS: There is a moderate to large hiatal hernia. There are multiple hypodense hepatic lesions including an indeterminate 28 mm right lobe hepatic mass. An MRI the liver is recommended in follow-up. No pathologically enlarged axillary mediastinal or hilar lymph nodes were visualized. There was no evidence of thoracic aortic dilatation. There are bilateral pulmonary artery filling defects, likely representing residua from the patient's large previously described saddle embolus. Without a posttreatment baseline, it is obvious is not pos sible to exclude small new emboli. The overall thrombus burden is markedly decreased when compared th e prior study. No pleural effusions are visualized. There are no significant pleural effusions. There are basilar at electatic changes. There is a stable 5 mm right upper lobe pulmonary nodule. A spinal stimulator is visualized. IMPRESSION: 1. Bilateral pulmonary artery filling defects, likely representing residua from the patient's previou sly described large saddle embolus. 2. It is obviously not possible to exclude new emboli without a posttreatment baseline. The overall t hrombus burden is however markedly decreased when compared the prior study. 3. Stable 5 mm right upper lobe pulmonary nodule 4. Moderate to large hiatal hernia 5. Indeterminate hepatic masses including a 28 mm right hepatic lobe lesion. A dedicated MRI the live r is recommended in follow-up.. ACT 112: Positive. There are findings on this exam that require communication between the performing entity and the patient following Patient Test Result Information Act ([place] Act 112) guidelines. Electronically signed by: Marlo Munguia M.D. 02/03/2021 8:45 PM
--- NOTE | 2021-02-03 21:06 | History & Physical Report ---
Date of Service February 03, 2021 Assessment & Plan (1) DVT (deep venous thrombosis): 60yo C female with history of saddle PE in December s/p tPA on Eliquis anticoagulation presenting with LLE DVT, presumed acute. Patient states she has been taking her Eliquis as prescribed and has not missed any doses. Concern for Eliquis failure. Patient's daughter reportedly with intracranial clot and was diagnosed with Factor V Leiden mutation - details unknown Extensive LLE DVT. CTA not concerning for new PE. -Admit to medical with telemetry -Heparin gtt -Hypercoagulable workup sent by Dr. Frankel -Hematology consultation appreciated -Plan for IVC filter placement in AM - will keep patient NPO after midnight. Consult to Dr. Brown placed Present on Admission?: Yes (2) Pulmonary embolism: Patient with saddle PE in December requiring tPA administration complicated by hematoma formation at spinal stimulator site - transferred to [facility]. Patient previously on Eliquis anticoagulation - compliant with therapy, presenting with new acute DVT as above concerning for Eliquis failure. HD stable, no respiratory distress. CTA with no suggestion for acute PE today - decreased clot burden from prior imaging -Heparin gtt as above -Plan for IVC filter Present on Admission?: Yes (3) Anxiety: Chronic -Continue Escitalopram Present on Admission?: Yes (4) Liver lesion: Noted on imaging. LFTs WNL -Check MRI abdomen Present on Admission?: Yes (5) UTI (urinary tract infection): +UA, history of overactive bladder. Multiple allergies. Had black-sensitive proteus in culture in the past -Fosfomycin x 1 dose Present on Admission?: Yes (6) Chronic pain: Chronic -Continue Gabapentin at home dose -Continue Carioprodol/Soma QID -Continue Oxycodone PRN Present on Admission?: Yes (7) Overactive bladder: Chronic -Continue Oxybutynin -Continue Tolterodine Present on Admission?: Yes History of Present Illness Chief Complaint: LLE DVT while on Eliquis Primary Care Provider: MEMO Chand Bonnie Carmen is a 60yo C female with history of HTN, GERD presenting with LLE DVT. Patient was admitted to [facility] on 01/04/21 after presenting with acute saddle pulmonary embolism with RV strain and clot in transit in the right atrium - Class II PESI score, high risk sPESI - she was administered 50mg IV tPA. Patient developed hematoma surrounding her spinal stimulator with external hemorrhage. She was transferred to [facility] on 01/05/21. Patient did well and was discharged on Eliquis with plans for anticoagulation for 3-6 months for provoked PE. (Initial clot provoked - patient had a laminectomy performed on 12/20/20. Also with recent history o Covid-19 infection in October). She was seen by her PCP on 01/13/21 and noted to have a small amount of pitting edema of the LLE though to be secondary to mild lymphedema - patient was on Eliquis at that time. Patient continue to have swelling and pain in her LLE with acute worsening over the last week. She had a LLE doppler performed today by Dr. Horton which was POSITIVE for acute DVT from the femoral vein. Patient was subsequently sent to the ER at request of Dr. Frankel for concern for Eliquis failure at risk for recurrent PE. Patient with no acute complaints. She reports stable BLACKMAN since her initial PE but does not endorse acute worsening of this symptom. She denies cough, hemoptysis or chest pain. She has occasional palpitations. No syncope. She has pain and swelling in her LLE. No additional complaints at this time. ER - afebrile, HD stable, no respiratory distress. CTA performed which demonstrated decreased clot burden from prior PE - no obvious new PE. Allergies Allergy/AdvReac Type Severity Reaction Status Date / Time cephalexin Allergy Unknown ` Verified 02/03/21 12:46 ciprofloxacin [From Cipro] Allergy Unknown Unknown Verified 02/03/21 12:46 naproxen Allergy Unknown ` Verified 02/03/21 12:46 Sulfa (Sulfonamide Allergy Unknown ` Verified 02/03/21 12:46 Antibiotics) adhesive tape Allergy makes skin Verified 02/03/21 20:04 red & swollen cranberry Allergy Unknown Verified 02/03/21 12:46 hydrochlorothiazide Allergy Unknown Verified 02/03/21 12:46 [From HydroDiuril] lamotrigine Allergy Unknown Verified 02/03/21 12:46 nitrofurantoin Allergy Unknown Verified 02/03/21 12:46 [From Macrodantin] duloxetine AdvReac Mild heart Verified 02/03/21 12:46 racing NSAIDS (Non-Steroidal AdvReac Unknown UNKNOWN Verified 02/03/21 12:46 Anti-Inflamma topiramate AdvReac Unknown arms Verified 02/03/21 12:46 became severly cold sertraline AdvReac Unknown Verified 02/03/21 12:46 tramadol AdvReac Unknown Verified 02/03/21 12:46 venlafaxine AdvReac Unknown Verified 02/03/21 12:46 Home Medications Medication Instructions Recorded Confirmed Type Probiotic 1 cap PO DAILY 08/17/18 02/03/21 History carisoprodol 350 mg tablet 350 mg PO QID 03/30/20 02/03/21 History oxybutynin chloride 5 mg tablet 5 mg PO TID #90 tab 11/16/20 02/03/21 Rx oxycodone 10 mg PO Q6 PRN 01/04/21 02/03/21 History tolterodine 2 mg PO BID 01/04/21 02/03/21 History escitalopram oxalate 10 mg tablet 10 mg PO DAILY #30 tab 01/26/21 02/03/21 Rx omeprazole 20 mg capsule,delayed 20 mg PO DAILY PRN #30 cap 01/26/21 02/03/21 Rx release albuterol sulfate 90 mcg/actuation 2 puff INH QID PRN #8 g 02/03/21 02/03/21 Rx aerosol inhaler apixaban 5 mg tablet 5 mg PO BID 02/03/21 02/03/21 History gabapentin 300 mg PO BID 02/03/21 02/03/21 History gabapentin 600 mg PO HS 02/03/21 02/03/21 History Past Med/Surg History Medical History Asthma GERD (gastroesophageal reflux disease) Headache Hypertension Post lumbar puncture headache Pulmonary embolism Surgical History Previous back surgery S/P tonsillectomy Family History (Updated 02/03/21 @ 23:50 by Sue Price DO) Other Coronary heart disease Factor V Leiden Myocardial infarction Social History Smoking Status: Never smoker Second Hand Exposure: No; Hx Alcohol Use: No Hx Substance Use: No Preferred Language: Greek Communication Ability: Effective Product Marketing 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 caffeine: No Dental Care, Regularly: Yes Physical Activity Frequency: 1-2 Times per Week Seatbelt Use: always Sunscreen Use: No Assistive Devices: Cane Review of Systems Review of Systems: All systems reviewed & are unremarkable except as noted in HPI & below Physical Exam Physical Exam: General: patient resting comfortably, NAD, non-toxic in appearance, AA&O x 4 Skin: warm, dry, intact, no rashes or lesions HEENT: NC/AT, PERRL, EOMI, anicteric sclera, conjunctiva without injection, external ear normal to inspection and nontender, nares patent, moist mucus membranes, dentition intact, no oropharyngeal lesions, neck supple, trachea midline, no LAD, no thyromegaly, no JVD Heart: +S1/S2, regular, no m/r/g Lungs: equal air entry bilaterally, faint crackles in bilateral bases, no rhonchi/wheezes, patient dyspneic after ambulating to restroom Abd: +BS, soft, NT/ND, no masses/organomegaly/ascites Ext: warm, 2+ pulses in UE/LE bilaterally, no clubbing/cyanosis, LLE warm, swollen, tender Neuro: nonfocal, patient AA&O x 4, speech intact, no facial droop, moving all extremities on command with equal strength 5/5 Results & Data Results & Data ([facility]) Vital Signs (Past 12 Hours) Vital Signs Temp Pulse Resp BP Pulse Ox 02/03/21 20:46 75 17 176/115 H 98 02/03/21 20:01 78 18 140/94 96 02/03/21 19:30 86 22 164/115 H 96 02/03/21 19:15 95 02/03/21 19:00 80 22 153/86 H 94 02/03/21 18:38 88 21 145/88 H 94 02/03/21 17:29 36.8 C 109 H 18 140/75 95 Laboratory Results Laboratory Results WBC 4.79 K/uL (4.8-10.8) L 02/03/21 18:21 RBC 4.35 M/uL (4.2-5.4) 02/03/21 18:21 Hgb 12.3 g/dL (12.0-16.0) 02/03/21 18:21 Hct 39.5 % (37-47) 02/03/21 18:21 MCV 90.8 fL (80-100) 02/03/21 18:21 MCH 28.3 pg (25-34) 02/03/21 18: MCHC 31.1 g/dL (32-36) L 02/03/21 18: RDW Std Deviation 53.4 fL (36.4-46.3) H 02/03/21 18:21 RDW Coeff of Cynthia 16.1 % (11.5-14.5) H 02/03/21 18: Plt Count 261 K/uL (130-400) 02/03/21 18: MPV 10.7 fL (7.4-10.4) H 02/03/21 18:21 Immature Gran % (Auto) 0.2 % 02/03/21 18: Neut % (Auto) 52.6 % 02/03/21 18:21 Lymph % (Auto) 35.7 % 02/03/21 18:21 [place] % (Auto) 8.8 % 02/03/21 18:21 Eos % (Auto) 2.1 % 02/03/21 18: Baso % (Auto) 0.6 % 02/03/21 18:21 Neut # (Auto) 2.52 K/uL (1.4-6.5) 02/03/21 18: Lymph # (Auto) 1.71 K/uL (1.2-3.4) 02/03/21 18:21 [place] # (Auto) 0.42 K/uL (0.11-0.59) 02/03/21 18:21 Eos # (Auto) 0.10 K/uL (0-0.5) 02/03/21 18:21 Baso # (Auto) 0.03 K/uL (0-0.2) 02/03/21 18:21 Immature Gran # (Auto) 0.01 K/uL (0.00-0.02) 02/03/21 18: PT 10.9 Seconds (9.0-12.0) 02/03/21 18: INR 1.1 (0.9-1.1) 02/03/21 18:21 APTT 24.0 Seconds (21.0-31.0) 02/03/21 18:21 PTT Ratio 0.9 02/03/21 18:21 Sodium 145 mmol/L (136-145) 02/03/21 18:21 Potassium 3.6 mmol/L (3.5-5.1) 02/03/21 18:21 Chloride 112 mmol/L (98-107) H 02/03/21 18:21 Carbon Dioxide 26 mmol/L (21-32) 02/03/21 18:21 Anion Gap 7.0 (3-11) 02/03/21 18:21 BUN 10 mg/dl (7-18) 02/03/21 18:21 Creatinine 0.98 mg/dl (0.6-1.2) 02/03/21 18:21 Est Cr Clr Drug Dosing 68.4 ml/min 02/03/21 18:21 Est GFR ( Amer) 72.7 ml/min 02/03/21 18:21 Est GFR (Non-Af Amer) 62.7 ml/min 02/03/21 18:21 BUN/Creatinine Ratio 10.2 (10-20) 02/03/21 18: Glucose 100 mg/dl (70-99) H 02/03/21 18:21 Calcium 9.4 mg/dl (8.5-10.1) 02/03/21 18:21 Magnesium 2.2 mg/dl (1.8-2.4) 02/03/21 18:21 Total Bilirubin 0.3 mg/dl (0.2-1) 02/03/21 18:21 AST 18 U/L (15-37) 02/03/21 18:21 ALT 21 U/L (12-78) 02/03/21 18:21 Alkaline Phosphatase 89 U/L (45-117) 02/03/21 18:21 Troponin I < 0.015 ng/ml (0-0.045) 02/03/21 18:21 Total Protein 6.8 gm/dl (6.4-8.2) 02/03/21 18:21 Albumin 3.6 gm/dl (3.4-5.0) 02/03/21 18:21 Globulin 3.2 gm/dl (2.5-4.0) 02/03/21 18:21 Albumin/Globulin Ratio 1.1 (0.9-2) 02/03/21 18:21 Urine Color Yellow 02/03/21 21:40 Urine Appearance Clear (Clear) 02/03/21 21:40 Urine pH 6.0 (4.5-7.5) 02/03/21 21:40 Ur Specific [place] 1.039 (1.000-1.030) H 02/03/21 21:40 Urine Protein Negative (Negative) 02/03/21 21:40 Urine Glucose (UA) Negative (Negative) 02/03/21 21:40 Urine Ketones Negative (Negative) 02/03/21 21:40 Urine Blood Negative (Negative) 02/03/21 21:40 Urine Nitrite Positive (Negative) A 02/03/21 21:40 Urine Bilirubin Negative (Negative) 02/03/21 21:40 Urine Urobilinogen Negative (Negative) 02/03/21 21:40 Ur Leukocyte Esterase 1+ (Negative) H 02/03/21 21:40 Urine WBC (Auto) 10-30 /hpf (0-5) H 02/03/21 21:40 Urine RBC (Auto) 0-4 /hpf (0-4) 02/03/21 21:40 U Hyaline Cast (Auto) 1-5 /lpf (0-5) 02/03/21 21:40 U Epithel Cells (Auto) 5-10 /lpf (0-5) H 02/03/21 21:40 Urine Bacteria (Auto) 4+ (Negative) H 02/03/21 21:40 COVID-19 Eval Order Covid19 at [facility] 02/03/21 19:13 SARS-CoV-2 (PCR) NEGATIVE (Negative) 02/03/21 19:13 Impressions Chest CTA 02/03/21 18:00 CT ANGIOGRAM OF THE CHEST CLINICAL HISTORY: DVT. Shortness of breath. Chest pain. COMPARISON STUDY: 01/04/2021 TECHNIQUE: Following the IV administration of 112 mL of Optiray, CT angiogram of the thorax was performed from the thoracic inlet to the lung bases utilizing the pulmonary embolus protocol. Images are reviewed in the axial, sagittal, and coronal planes. IV contrast was administered without complication. MIP imaging was performed. A dose lowering technique was utilized adhering to the princi ples of JULIAN. CT DOSE: 494.80 mGycm FINDINGS: There is a moderate to large hiatal hernia. There are multiple hypodense hepatic lesions including an indeterminate 28 mm right lobe hepatic mass. An MRI the liver is recommended in follow-up. No pathologically enlarged axillary mediastinal or hilar lymph nodes were visualized. There was no evidence of thoracic aortic dilatation. There are bilateral pulmonary artery filling defects, likely representing residua from the patient's large previously described saddle embolus. Without a posttreatment baseline, it is obvious is not possible to exclude small new emboli. The overall thrombus burden is markedly decreased when compared the prior study. No pleural effusions are visualized. There are no significant pleural effusions. There are basilar atelectatic changes. There is a stable 5 mm right upper lobe pulmonary nodule. A spinal stimulator is visualized. IMPRESSION: 1. Bilateral pulmonary artery filling defects, likely representing residua from the patient's previously described large saddle embolus. 2. It is obviously not possible to exclude new emboli without a posttreatment baseline. The overall thrombus burden is however markedly decreased when compared the prior study. 3. Stable 5 mm right upper lobe pulmonary nodule 4. Moderate to large hiatal hernia 5. Indeterminate hepatic masses including a 28 mm right hepatic lobe lesion. A dedicated MRI the liver is recommended in follow-up.. ACT 112: Positive. There are findings on this exam that require communication between the performing entity and the patient following Patient Test Result Information Act ([place] Act 112) guidelines. Electronically signed by: Marlo Munguia M.D. 02/03/2021 8:45 PM Code Status & VTE Plan VTE Prophylaxis Plan VTE Prophylaxis will be ordered: Yes PG Care Time/CCT Total # of Minutes Spent Total Time Spent with Patient: Total time spent is greater than 50% in coordination of care (as documented) at patient's floor/unit and/or counseling patient: Coding Level of Care Code 94731 Initial Inpt Care Lvl 3 Diagnoses DVT (deep venous thrombosis) I82.402 DVT location: lower extremity Affected thrombotic vein of extremity: unspecified vein of extremity Chronicity: unspecified Laterality: left Pulmonary embolism I26.99 Pulmonary embolism type: unspecified Chronicity: unspecified Acute cor pulmonale presence: unspecified Anxiety F41.9 Liver lesion K76.9 UTI (urinary tract infection) N39.0 Urinary tract infection type: site unspecified Hematuria presence: without hematuria Chronic pain G89.29 Chronic pain type: other chronic pain Overactive bladder N32.81 (1) Pulmonary embolism Pulmonary embolism type: unspecified Chronicity: unspecified Acute cor pulmonale presence: unspecified Qualified Code(s): I26.99 - Other pulmonary embolism without acute cor pulmonale (2) DVT (deep venous thrombosis) DVT location: lower extremity Affected thrombotic vein of extremity: unspecified vein of extremity Chronicity: unspecified Laterality: left Qualified Code(s): I82.402 - Acute embolism and thrombosis of unspecified deep veins of left lower extremity (3) UTI (urinary tract infection) Urinary tract infection type: site unspecified Hematuria presence: without hematuria Qualified Code(s): N39.0 - Urinary tract infection, site not specified (4) Chronic pain Chronic pain type: other chronic pain Qualified Code(s): G89.29 - Other chronic pain
[2021-02-03] MEDS ORDERED: HEPARIN SOD (PORCINE) 1000 UNIT/ML ONE (21:46)
[2021-02-03] MEDS ORDERED: HEPARIN 25000 UNIT/500 ML D5W IV ONE (21:46)
[2021-02-03] MEDS ORDERED: HEPARIN SOD (PORCINE) 1000 UNIT/ML IV ONE (21:51)
[2021-02-03 22:17] LABS: Appearance Urine Clear (Clear); Bacteria Urine Automated 4+ (Negative); Bilirubin Urine Negative (Negative); Blood Urine Negative (Negative); Color Urine Yellow; Glucose Urine UA Negative (Negative); Ketones Urine Negative (Negative); Leukocyte Esterase Urine 1+ (Negative); Nitrite Urine Positive (Negative); Protein Urine Negative (Negative); RBC Urine Automated 0-4 /hpf (0-4); Specific Gravity Urine 1.039 (1.000-1.030); Urobilinogen Urine Negative (Negative)
[2021-02-04] MEDS ORDERED: FOSFOMYCIN TROMETHAMINE 3 GM PACKET PO SCH (00:30)
[2021-02-04] MEDS ORDERED: ONDANSETRON INJ 2 MG/ML 2 ML VIAL IV PRN (00:58)
[2021-02-04] MEDS ORDERED: ACETAMINOPHEN 325 MG TAB PO PRN (00:58)
[2021-02-04] MEDS ORDERED: ALBUTEROL 0.5% NEB SOLN 2.5 MG/0.5 ML VIAL NEB PRN (00:58)
[2021-02-04] MEDS ORDERED: HEPARIN SOD (PORCINE) 1000 UNIT/ML IV ONE (00:58)
[2021-02-04] MEDS ORDERED: Heparin IV Adult Wt-Based Standard WITH Bolus Protocol IV STA (00:58)
[2021-02-04] MEDS: HEPARIN SODIUM/DEXTROSE 25,000 UNITS/500 ML BAG IV SCH ×2 (01:29→20:40)
[2021-02-04] MEDS: GABAPENTIN 300 MG CAP PO SCH ×4 (01:53→20:40)
[2021-02-04] MEDS: OXYBUTYNIN CHLORIDE 5 MG TAB PO SCH ×4 (01:54→20:40)
[2021-02-04] MEDS: TOLTERODINE TARTRATE 2 MG TAB PO SCH ×3 (01:54→20:40)
[2021-02-04] MEDS ORDERED: GABAPENTIN 300 MG CAP PO SCH (02:00)
[2021-02-04] MEDS: CARISOPRODOL 350 MG TABLET PO SCH ×4 (02:11→20:40)
[2021-02-04 08:00] LABS: Hematocrit (blood only) 37.6 % (37-47); Hemoglobin 11.7 g/dL (12.0-16.0); Mean Corpuscular Hemoglobin 28.7 pg (25-34); Mean Corpuscular Hgb Conc 31.1 g/dL (32-36); Mean Corpuscular Volume 92.2 fL (80-100); Mean Platelet Volume 10.4 fL (7.4-10.4); Platelet Count 248 K/uL (130-400); RDW Coefficient of Variation 16.2 % (11.5-14.5); RDW Standard Deviation 54.6 fL (36.4-46.3); Red Blood Count 4.08 M/uL (4.2-5.4); White Blood Count 4.05 K/uL (4.8-10.8)
[2021-02-04 08:18] LABS: Partial Thromboplastin Ratio 3.1
[2021-02-04 08:19] LABS: Partial Thromboplastin Time 80.6 Seconds (21.0-31.0)
[2021-02-04] MEDS: ESCITALOPRAM OXALATE 10 MG TAB PO SCH (09:04)
--- NOTE | 2021-02-04 09:09 | Ultrasound Report ---
BILATERAL LOWER EXTREMITY VENOUS DOPPLER HISTORY: Left leg DVT. Follow-up. outside report of DVT left leg but no films, left COMPARISON STUDY: None. FINDINGS: There is normal compressibility, flow, and augmentation within the right lower extremity de ep venous system. The left common femoral vein is patent. There is occlusive thrombus seen within the majority of the left superficial femoral and popliteal veins. The left calf vessels are patent. IMPRESSION: 1. Occlusive DVT within the left superficial femoral and popliteal veins. 2. No DVT within the right lower extremity. ACT 112: Negative or not required by law. Electronically signed by: Chuck Aleman M.D. 02/04/2021 9:08 AM
[2021-02-04 09:37] LABS: Basophils # (auto) 0.04 K/uL (0-0.2); Eosinophils # (auto) 0.18 K/uL (0-0.5); Eosinophils % (auto) 4.4 %; Hypochromasia Present; Lymphocytes # (auto) 2.31 K/uL (1.2-3.4); Monocytes # (auto) 0.26 K/uL (0.11-0.59); Monocytes % (auto) 6.4 %; Neutrophils # (auto) 1.26 K/uL (1.4-6.5); Neutrophils % (auto) 31.2 %
--- NOTE | 2021-02-04 10:28 | Consultation ---
Date of Consultation February 04, 2021 Assessment & Plan (1) DVT (deep venous thrombosis): Pt with subacute appearing LLE DVT in femoral and pop veins. Timing could be consistent with presentation of saddle embolus, but difficult to compare since no venous US was ordered at the time. Pt discussed at length with Dr Brown, recommends pt undergo repeat venous US on SUNDAY morning. If DVT demonstrates propagation, will plan for IVC filter placement. Pt is agreeable. Please call if needed otherwise. History of Present Illness Reason for Consultation: LLE DVT, possible need for IVC filter Attending Physician: Ronnie Fletcher DO History of Present Illness 60 yo f with hx of GERD, HTN, asthma, anxiety, and significant low back problems s/p multiple spinal procedures, admitted with LLE DVT, seen in consultation today to determine whether IVC filter is needed. Pt underwent spinal stimulator placement at another facility the last week of November 2020 and states she was not very mobile and spent most of her time sitting in recliner chair with her legs elevated. She then presented to [facility] ED for eval d/t SOB, BLACKMAN, general malaise, and chest discomfort on 01/03/21 and was found to have saddle PE. No venous imaging for source was performed at that time. She underwent tPA administration and was transferred to [facility] after she developed bleeding from her spinal stimulator site. Pt states she did not have any venous US while at [facility], and her discharge summary corroborates this. Pt states she has had edema of her LLE since her discharge from [facility] and has been walking more. Pt states that she insisted on getting the US of her LLE yesterday, d/t continued edema. States she occasionally has pain in LLE, but is improved. States she is not aware of any prior dx of DVT. States has been taking her blood thinners as prescribed. States her LLE edema is improved today since admission yesterday. Denies new chest pain or SOB and states BLACKMAN is improved. Denies CLARK, fever, abd pain, N/V, rest pain, claudication, other complaints. BLE Venous US demonstrates subacute appearing LLE DVT from femoral to popliteal veins. Allergies Allergy/AdvReac Type Severity Reaction Status Date / Time cephalexin Allergy Unknown ` Verified 02/03/21 12:46 ciprofloxacin [From Cipro] Allergy Unknown Unknown Verified 02/03/21 12:46 naproxen Allergy Unknown ` Verified 02/03/21 12:46 Sulfa (Sulfonamide Allergy Unknown ` Verified 02/03/21 12:46 Antibiotics) adhesive tape Allergy makes skin Verified 02/03/21 20:04 red & swollen cranberry Allergy Unknown Verified 02/03/21 12:46 hydrochlorothiazide Allergy Unknown Verified 02/03/21 12:46 [From HydroDiuril] lamotrigine Allergy Unknown Verified 02/03/21 12:46 nitrofurantoin Allergy Unknown Verified 02/03/21 12:46 [From Macrodantin] duloxetine AdvReac Mild heart Verified 02/03/21 12:46 racing NSAIDS (Non-Steroidal AdvReac Unknown UNKNOWN Verified 02/03/21 12:46 Anti-Inflamma topiramate AdvReac Unknown arms Verified 02/03/21 12:46 became severly cold sertraline AdvReac Unknown Verified 02/03/21 12:46 tramadol AdvReac Unknown Verified 02/03/21 12:46 venlafaxine AdvReac Unknown Verified 02/03/21 12:46 Home Medications Medication Instructions Recorded Confirmed Type Probiotic 1 cap PO DAILY 08/17/18 02/03/21 History carisoprodol 350 mg tablet 350 mg PO QID 03/30/20 02/03/21 History oxybutynin chloride 5 mg tablet 5 mg PO TID #90 tab 11/16/20 02/03/21 Rx oxycodone 10 mg PO Q6 PRN 01/04/21 02/03/21 History tolterodine 2 mg PO BID 01/04/21 02/03/21 History escitalopram oxalate 10 mg tablet 10 mg PO DAILY #30 tab 01/26/21 02/03/21 Rx omeprazole 20 mg capsule,delayed 20 mg PO DAILY PRN #30 cap 01/26/21 02/03/21 Rx release albuterol sulfate 90 mcg/actuation 2 puff INH QID PRN #8 g 02/03/21 02/03/21 Rx aerosol inhaler apixaban 5 mg tablet 5 mg PO BID 02/03/21 02/03/21 History gabapentin 300 mg PO BID 02/03/21 02/03/21 History gabapentin 600 mg PO HS 02/03/21 02/03/21 History Patient History Medical History Asthma DVT (deep venous thrombosis) GERD (gastroesophageal reflux disease) Headache Hypertension Post lumbar puncture headache Pulmonary embolism Surgical History Previous back surgery S/P tonsillectomy Family History Other Coronary heart disease Factor V Leiden Myocardial infarction Social History Smoking Status: Never smoker Second Hand Exposure: No; Hx Alcohol Use: No Hx Substance Use: No Preferred Language: [place] Communication Ability: Effective 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 caffeine: No Dental Care, Regularly: Yes Physical Activity Frequency: 1-2 Times per Week Seatbelt Use: always Sunscreen Use: No Assistive Devices: Cane Review of Systems Review of Systems: All systems reviewed & are unremarkable except as noted in HPI & below Physical Exam Constitutional: WD/WN, vitals as above cooperative and comfortable; not in distress ENMT: Ears: no hearing impairment Neck: normal visual inspection and trachea midline Respiratory: normal respiratory effort, lungs clear to auscultation Auscultation: + diminished lung sounds Cardiovascular: Rate/Rhythm: regular rate and regular rhythm Vessels: femoral pulses present, posterior tibial pulses present, dorsalis pedis pulses present and radial pulses present; + abnormal peripheral pulses Extremities: normal capillary refill and + edema (LLE larger than RLE, +2 edema) Gastrointestinal (Abdomen): normal bowel sounds, soft, nontender, no hepatosplenomegaly Musculoskeletal: no cyanosis or clubbing, extremities motor strength 5/5 Skin: no rashes, warm and dry Neurologic: moves all extremities and awake; no focal motor deficits and not confused Psychiatric: A+Ox3, euthymic affect Results & Data ([facility]) Vital Signs (Past 12 Hours) Vital Signs Temp Pulse Pulse Pulse Resp BP BP 02/04/21 07:35 36.5 C 72 16 133/82 02/04/21 05:34 68 02/04/21 04:04 36.7 C 63 20 166/85 H 02/03/21 23:44 70 16 168/94 H 02/03/21 23:41 73 18 144/106 H 02/03/21 23:30 72 13 144/106 H 02/03/21 23:00 70 14 169/99 H 02/03/21 22:31 76 17 176/90 H Pulse Ox 02/04/21 07:35 93 02/04/21 05:34 02/04/21 04:04 94 02/03/21 23:44 96 02/03/21 23:41 93 02/03/21 23:30 94 02/03/21 23:00 95 02/03/21 22:31 96
--- NOTE | 2021-02-04 10:37 | Hospitalist Progress Note ---
Date of Service February 04, 2021 Assessment & Plan (1) DVT (deep venous thrombosis): 60yo C female with history of saddle PE in December s/p tPA on Eliquis anticoagulation presenting with LLE DVT, presumed acute. #DVT Patient states she has been taking her Eliquis as prescribed and has not missed any doses. Concern for Eliquis failure. Patient's daughter reportedly with intracranial clot and was diagnosed with Factor V Leiden mutation - details unknownExtensive LLE DVT. CTA not concerning for new PE. -Heparin gtt -Hypercoagulable workup sent by Dr. Frankel -Hematology consulted following recommendations -> coumadin vs warfarin -Vascular surgery consulted following recommendations -Repeat venous US on Sunday if DVT propagation observed plan for IVC filter placement #Pulmonary embolism Patient with saddle PE in December requiring tPA administration complicated by hematoma formation at spinal stimulator site - [place] [facility] [place] previously on Eliquis anticoagulation - compliant with therapy, presenting with new acute DVT as above concerning for Eliquis failure. HD stable, no respiratory distress. CTA with no suggestion for acute PE today - decreased clot burden from prior imaging -Heparin gtt as above -Plan for IVC filter #Anxiety Chronic -Continue Escitalopram #Liver lesion Noted on imaging. LFTs WNL, no other biochemical abnormalities or evidence of liver damage -MRI abdomen pending #UTI +UA, history of overactive bladder. Multiple allergies. Had black-sensitive proteus in culture in the past -Fosfomycin x 1 dose -Monitor for symptom resolution #Chronic pain Chronic -Continue Gabapentin at home dose -Continue Carioprodol/Soma QID -Continue Oxycodone PRN #OAB Chronic -Continue Oxybutynin -Continue Tolterodine FENa: N.p.o. pending evaluation by vascular surgery then heart healthy diet Code Status: Full code DVT PPX: Heparin plan to start Coumadin PT/OT: Ordered Dispo:MedSurg with telemetry Polo Price MD PGY 2, FCM This chart was completed utilizing [employer] voice recognition software. Grammatical errors, random word insertions, pronoun errors, and in complete sentences are an occasional consequence of the system. Any questions or concerns about the content, text, or information contained within the body of this dictation should be addressed directly to the physician for clarification. (2) Pulmonary embolism: (3) Anxiety: (4) Liver lesion: (5) UTI (urinary tract infection): (6) Chronic pain: (7) Overactive bladder: Admission and Anticipated Discharge Date Admission Date: February 03, 2021 Supervising Physician Co-Signing Physician Notes I personally examined the patient and verified all carr points of history and exam, discussed case, and agree with decision making with Dr Price. Generally feeling okay. Leg pain reasonable. No shortness of breath. Wonders about what her blood type is. Wonders about diet issues and her vitamins. Answered all questions to the best my ability. Vitals noted, in general she is awake and alert pleasant no distress. HEENT normocephalic atraumatic mucous membranes moist. Breathing unlabored no accessory muscle use good effort. Skin shows no rashes no pallor or icterus. DVTon Eliquisunfortunately may actually represent a treatment failure. Hypercoagulable panel has been sent, it may not really have much of an impact on her treatment, but given that she has family history of clotting disorder and has significant curiosity as to if she has something like 5 Leiden, it is not unreasonable to these have been sent. Current plan is heparin transition to warfarin, although it may be possible to consider Pradaxa given that is a largely different mechanism from the 10 a inhibitorsbut unless there is compelling evidence this would be okay, we will proceed with warfarin. Liver lesionMRI pending. Otherwise as above Subjective Patient lying in bed this morning in no acute distress. Reports no acute events overnight. She relate a story of this is similar to that as described in the history and physical. Noting no shortness of breath or other symptoms of PE. Acute concerns relate to duration of hospitalization and medication choices, all questions answered. Physical Exam Physical Exam: General: Lying in bed in no acute distress HEENT: Normocephalic atraumatic Neck: Normal to visual inspection, trachea midline Cardiac: Regular rate and rhythm I did not appreciate significant murmurs rubs or gallops, normal S1, normal S2, negative pedal edema, negative calf tenderness Respiratory: Clear to auscultation bilaterally with symmetrical chest expansion I did not appreciate any significant wheezes, rales, questionable faint crackles at the bilateral bases GI: Soft, nontender, nondistended, bowel sounds present Neuro: Alert and oriented x4 Psych: Calm and cooperative with the interview Results & Data Results & Data ([facility]) Vital Signs (Past 12 Hours) Vital Signs Temp Pulse Pulse Pulse Resp BP BP 02/04/21 07:35 36.5 C 72 16 133/82 02/04/21 05:34 68 02/04/21 04:04 36.7 C 63 20 166/85 H 02/03/21 23:44 70 16 168/94 H 02/03/21 23:41 73 18 144/106 H 02/03/21 23:30 72 13 144/106 H 02/03/21 23:00 70 14 169/99 H 02/03/21 22:31 76 17 176/90 H 02/03/21 22:00 86 20 153/82 H 02/03/21 21:31 79 24 185/107 H Pulse Ox 02/04/21 07:35 93 02/04/21 05:34 02/04/21 04:04 94 02/03/21 23:44 96 02/03/21 23:41 93 02/03/21 23:30 94 02/03/21 23:00 95 02/03/21 22:31 96 02/03/21 22:00 96 02/03/21 21:31 96 Laboratory Results 02/04/21 02/04/21 02/03/21 Range/Units 07:40 07:40 21:40 WBC 4.05 L (4.8-10.8) K/uL RBC 4.08 L (4.2-5.4) M/uL Hgb 11.7 L (12.0-16.0) g/dL Hct 37.6 (37-47) % MCV 92.2 (80-100) fL MCH 28.7 (25-34) pg MCHC 31.1 L (32-36) g/dL RDW Std Deviation 54.6 H (36.4-46.3) fL RDW Coeff of Cynthia 16.2 H (11.5-14.5) % Plt Count 248 (130-400) K/uL MPV 10.4 (7.4-10.4) fL Immature Gran % (Auto) 0.0 % Neut % (Auto) 31.2 % Lymph % (Auto) 57.0 % Butler % (Auto) 6.4 % Eos % (Auto) 4.4 % Baso % (Auto) 1.0 % Neut # (Auto) 1.26 L (1.4-6.5) K/uL Lymph # (Auto) 2.31 (1.2-3.4) K/uL Butler # (Auto) 0.26 (0.11-0.59) K/uL Eos # (Auto) 0.18 (0-0.5) K/uL Baso # (Auto) 0.04 (0-0.2) K/uL Immature Gran # (Auto) 0.00 (0.00-0.02) K/uL Hypochromasia Present PT (9.0-12.0) Seconds INR (0.9-1.1) APTT 80.6 H* (21.0-31.0) Seconds PTT Ratio 3.1 Sodium (136-145) mmol/L Potassium (3.5-5.1) mmol/L Chloride (98-107) mmol/L Carbon Dioxide (21-32) mmol/L Anion Gap (3-11) BUN (7-18) mg/dl Creatinine (0.6-1.2) mg/dl Est Cr Clr Drug Dosing ml/min Est GFR ( Amer) ml/min Est GFR (Non-Af Amer) ml/min BUN/Creatinine Ratio (10-20) Glucose (70-99) mg/dl Calcium (8.5-10.1) mg/dl Magnesium (1.8-2.4) mg/dl Total Bilirubin (0.2-1) mg/dl AST (15-37) U/L ALT (12-78) U/L Alkaline Phosphatase (45-117) U/L Troponin I (0-0.045) ng/ml Total Protein (6.4-8.2) gm/dl Albumin (3.4-5.0) gm/dl Globulin (2.5-4.0) gm/dl Albumin/Globulin Ratio (0.9-2) Urine Color Yellow Urine Appearance Clear (Clear) Urine pH 6.0 (4.5-7.5) Ur Specific [place] 1.039 H (1.000-1.030) Urine Protein Negative (Negative) Urine Glucose (UA) Negative (Negative) Urine Ketones Negative (Negative) Urine Blood Negative (Negative) Urine Nitrite Positive A (Negative) Urine Bilirubin Negative (Negative) Urine Urobilinogen Negative (Negative) Ur Leukocyte Esterase 1+ H (Negative) Urine WBC (Auto) 10-30 H (0-5) /hpf Urine RBC (Auto) 0-4 (0-4) /hpf U Hyaline Cast (Auto) 1-5 (0-5) /lpf U Epithel Cells (Auto) 5-10 H (0-5) /lpf Urine Bacteria (Auto) 4+ H (Negative) COVID-19 Eval Order SARS-CoV-2 (PCR) (Negative) 02/03/21 02/03/21 02/03/21 Range/Units 19:13 19:13 18:21 WBC (4.8-10.8) K/uL RBC (4.2-5.4) M/uL Hgb (12.0-16.0) g/dL Hct (37-47) % MCV (80-100) fL MCH (25-34) pg MCHC (32-36) g/dL RDW Std Deviation (36.4-46.3) fL RDW Coeff of Cynthia (11.5-14.5) % Plt Count (130-400) K/uL MPV (7.4-10.4) fL Immature Gran % (Auto) % Neut % (Auto) % Lymph % (Auto) % Butler % (Auto) % Eos % (Auto) % Baso % (Auto) % Neut # (Auto) (1.4-6.5) K/uL Lymph # (Auto) (1.2-3.4) K/uL Butler # (Auto) (0.11-0.59) K/uL Eos # (Auto) (0-0.5) K/uL Baso # (Auto) (0-0.2) K/uL Immature Gran # (Auto) (0.00-0.02) K/uL Hypochromasia PT (9.0-12.0) Seconds INR (0.9-1.1) APTT (21.0-31.0) Seconds PTT Ratio Sodium 145 (136-145) mmol/L Potassium 3.6 (3.5-5.1) mmol/L Chloride 112 H (98-107) mmol/L Carbon Dioxide 26 (21-32) mmol/L Anion Gap 7.0 (3-11) BUN 10 (7-18) mg/dl Creatinine 0.98 (0.6-1.2) mg/dl Est Cr Clr Drug Dosing 68.4 ml/min Est GFR ( Amer) 72.7 ml/min Est GFR (Non-Af Amer) 62.7 ml/min BUN/Creatinine Ratio 10.2 (10-20) Glucose 100 H (70-99) mg/dl Calcium 9.4 (8.5-10.1) mg/dl Magnesium 2.2 (1.8-2.4) mg/dl Total Bilirubin 0.3 (0.2-1) mg/dl AST 18 (15-37) U/L ALT 21 (12-78) U/L Alkaline Phosphatase 89 (45-117) U/L Troponin I < 0.015 (0-0.045) ng/ml Total Protein 6.8 (6.4-8.2) gm/dl Albumin 3.6 (3.4-5.0) gm/dl Globulin 3.2 (2.5-4.0) gm/dl Albumin/Globulin Ratio 1.1 (0.9-2) Urine Color Urine Appearance (Clear) Urine pH (4.5-7.5) Ur Specific [place] (1.000-1.030) Urine Protein (Negative) Urine Glucose (UA) (Negative) Urine Ketones (Negative) Urine Blood (Negative) Urine Nitrite (Negative) Urine Bilirubin (Negative) Urine Urobilinogen (Negative) Ur Leukocyte Esterase (Negative) Urine WBC (Auto) (0-5) /hpf Urine RBC (Auto) (0-4) /hpf U Hyaline Cast (Auto) (0-5) /lpf U Epithel Cells (Auto) (0-5) /lpf Urine Bacteria (Auto) (Negative) COVID-19 Eval Order Covid19 at [facility] SARS-CoV-2 (PCR) NEGATIVE (Negative) 02/03/21 02/03/21 Range/Units 18:21 18:21 WBC 4.79 L (4.8-10.8) K/uL RBC 4.35 (4.2-5.4) M/uL Hgb 12.3 (12.0-16.0) g/dL Hct 39.5 (37-47) % MCV 90.8 (80-100) fL MCH 28.3 (25-34) pg MCHC 31.1 L (32-36) g/dL RDW Std Deviation 53.4 H (36.4-46.3) fL RDW Coeff of Cynthia 16.1 H (11.5-14.5) % Plt Count 261 (130-400) K/uL MPV 10.7 H (7.4-10.4) fL Immature Gran % (Auto) 0.2 % Neut % (Auto) 52.6 % Lymph % (Auto) 35.7 % Butler % (Auto) 8.8 % Eos % (Auto) 2.1 % Baso % (Auto) 0.6 % Neut # (Auto) 2.52 (1.4-6.5) K/uL Lymph # (Auto) 1.71 (1.2-3.4) K/uL Butler # (Auto) 0.42 (0.11-0.59) K/uL Eos # (Auto) 0.10 (0-0.5) K/uL Baso # (Auto) 0.03 (0-0.2) K/uL Immature Gran # (Auto) 0.01 (0.00-0.02) K/uL Hypochromasia PT 10.9 (9.0-12.0) Seconds INR 1.1 (0.9-1.1) APTT 24.0 (21.0-31.0) Seconds PTT Ratio 0.9 Sodium (136-145) mmol/L Potassium (3.5-5.1) mmol/L Chloride (98-107) mmol/L Carbon Dioxide (21-32) mmol/L Anion Gap (3-11) BUN (7-18) mg/dl Creatinine (0.6-1.2) mg/dl Est Cr Clr Drug Dosing ml/min Est GFR ( Amer) ml/min Est GFR (Non-Af Amer) ml/min BUN/Creatinine Ratio (10-20) Glucose (70-99) mg/dl Calcium (8.5-10.1) mg/dl Magnesium (1.8-2.4) mg/dl Total Bilirubin (0.2-1) mg/dl AST (15-37) U/L ALT (12-78) U/L Alkaline Phosphatase (45-117) U/L Troponin I (0-0.045) ng/ml Total Protein (6.4-8.2) gm/dl Albumin (3.4-5.0) gm/dl Globulin (2.5-4.0) gm/dl Albumin/Globulin Ratio (0.9-2) Urine Color Urine Appearance (Clear) Urine pH (4.5-7.5) Ur Specific [place] (1.000-1.030) Urine Protein (Negative) Urine Glucose (UA) (Negative) Urine Ketones (Negative) Urine Blood (Negative) Urine Nitrite (Negative) Urine Bilirubin (Negative) Urine Urobilinogen (Negative) Ur Leukocyte Esterase (Negative) Urine WBC (Auto) (0-5) /hpf Urine RBC (Auto) (0-4) /hpf U Hyaline Cast (Auto) (0-5) /lpf U Epithel Cells (Auto) (0-5) /lpf Urine Bacteria (Auto) (Negative) COVID-19 Eval Order SARS-CoV-2 (PCR) (Negative) Medications Administered Current Inpatient Medications Acetaminophen (Acetaminophen 325 Mg Tab) 650 mg PO Q4H PRN PRN Reason: pain/fever Stop: 03/06/21 00:57 Albuterol (Albuterol 0.5% Neb Soln 2.5 Mg/0.5 Ml Vial) 2.5 mg NEB Q2R PRN PRN Reason: SOB/Wheeze Stop: 03/06/21 00:57 Carisoprodol (Carisoprodol 350 Mg Tablet) 350 mg PO QID TERESA Stop: 03/06/21 01:59 Last Admin: 02/04/21 02:11 Dose: 350 mg Documented by: Escitalopram Oxalate (Escitalopram Oxalate 10 Mg Tab) 10 mg PO DAILY TERESA Stop: 03/06/21 08:59 Last Admin: 02/04/21 09:04 Dose: 10 mg Documented by: Gabapentin (Gabapentin 300 Mg Cap) 600 mg PO HS TERESA Stop: 03/06/21 01:59 Last Admin: 02/04/21 01:53 Dose: 600 mg Documented by: Gabapentin (Gabapentin 300 Mg Cap) 300 mg PO BID@0800,1400 TERESA Stop: 03/06/21 07:59 Last Admin: 02/04/21 09:04 Dose: 300 mg Documented by: Heparin Sodium/Dextrose (Heparin Sodium/Dextrose) 25,000 units in 500 mls @ 24 mls/hr IV .[id number] [facility]; Protocol Stop: 03/06/21 00:57 Last Titration: 02/04/21 09:04 Dose: 1,200 units/hr, 24 mls/hr Documented by: Ondansetron HCl (Ondansetron Inj 2 Mg/Ml 2 Ml Vial) 4 mg IV Q6H PRN PRN Reason: Nausea Stop: 03/06/21 00:57 Oxybutynin Chloride (Oxybutynin Chloride 5 Mg Tab) 5 mg PO TID [facility] Stop: 03/06/21 01:44 Last Admin: 02/04/21 09:04 Dose: 5 mg Documented by: Oxycodone HCl (Oxycodone Hcl Ir 5 Mg Tab (Immediate Release)) 10 mg PO Q6 PRN PRN Reason: Pain Stop: 02/18/21 00:57 Tolterodine Tartrate (Tolterodine Tartrate 2 Mg Tab) 2 mg PO BID [facility] Stop: 03/06/21 01:59 Last Admin: 02/04/21 01:54 Dose: 2 mg Documented by: Resident Activity Tracking Resident Involvement: Resident Care Provided Care Provided: Adult Hospital Medicine (1) UTI (urinary tract infection) Hematuria presence: without hematuria Urinary tract infection type: site unspecified Qualified Code(s): N39.0 - Urinary tract infection, site not specified (2) Chronic pain Chronic pain type: other chronic pain Qualified Code(s): G89.29 - Other chronic pain (3) Pulmonary embolism Acute cor pulmonale presence: unspecified Chronicity: unspecified Pulmonary embolism type: unspecified Qualified Code(s): I26.99 - Other pulmonary embolism without acute cor pulmonale
[2021-02-04] MEDS: oxyCODONE HCL IR 5 MG TAB (IMMEDIATE RELEASE) PO PRN (13:10)
[2021-02-04] MEDS: PANTOprazole 40 MG TAB PO PRN (13:18)
[2021-02-04 15:50] LABS: Partial Thromboplastin Ratio 2.1
[2021-02-04 15:52] LABS: Partial Thromboplastin Time 55.1 Seconds (21.0-31.0)
[2021-02-04] MEDS ORDERED: WARFARIN SOD 10 MG TAB PO ONE (16:09)
[2021-02-04 16:32] LABS: INR 1.1 (0.9-1.1); Prothrombin Time 10.9 Seconds (9.0-12.0)
--- NOTE | 2021-02-04 17:50 | Billing Data ---
Date of Service February 04, 2021 Coding Level of Care Code 72291 Subseq Hosp Care Lvl 3
--- NOTE | 2021-02-04 21:03 | Communication Note ---
Date of Service: February 04, 2021 Nursing and radiology contacted me about the MRI abd. study that was ordered was not able to be completed due to the spinal stimulator. There was a limitation of 30 minutes and the study would last 1hr 15 min - cancelled ordered
[2021-02-05 06:16] LABS: INR 1.1 (0.9-1.1); Prothrombin Time 11.4 Seconds (9.0-12.0)
--- NOTE | 2021-02-05 07:42 | Electrocardiogram Report ---
Test Reason : Blood Pressure : / mmHG Vent. Rate : 088 BPM Atrial Rate : 088 BPM P-R Int : 126 ms QRS Dur : 076 ms QT Int : 366 ms P-R-T Axes : 030 -13 010 degrees QTc Int : 442 ms Normal sinus rhythm Possible Left atrial enlargement Left ventricular hypertrophy Nonspecific T wave abnormality Abnormal ECG When compared with ECG of 04-JAN-2021 06:22, Questionable change in QRS axis T wave inversion less evident in Anterior leads Confirmed by Enrique Muñoz ([id number]) on 02/05/2021 7:41:35 AM Referred By: REFERRED SELF Confirmed By:Enrique Muñoz
[2021-02-05] MEDS: OXYBUTYNIN CHLORIDE 5 MG TAB PO SCH ×3 (08:39→20:28)
[2021-02-05] MEDS: TOLTERODINE TARTRATE 2 MG TAB PO SCH ×2 (08:39→20:29)
[2021-02-05] MEDS: GABAPENTIN 300 MG CAP PO SCH ×3 (08:40→20:28)
[2021-02-05] MEDS: ESCITALOPRAM OXALATE 10 MG TAB PO SCH (08:40)
[2021-02-05] MEDS: PANTOprazole 40 MG TAB PO PRN (08:40)
[2021-02-05] MEDS: ADVANCED PROBIOTIC 1250 MG CAPSULE PO SCH (08:41)
[2021-02-05] MEDS: CARISOPRODOL 350 MG TABLET PO SCH ×4 (08:48→20:28)
[2021-02-05] MEDS: oxyCODONE HCL IR 5 MG TAB (IMMEDIATE RELEASE) PO PRN ×2 (10:51→20:28)
--- NOTE | 2021-02-05 14:49 | Consultation Report ---
DATE OF CONSULTATION: 02/04/2021 REASON FOR CONSULTATION: Anticoagulant failure. HISTORY OF PRESENT ILLNESS: The patient is a very pleasant 60-year-old female patient with multiple medical issues and most recently presented with a swollen, painful left lower extremity, confirmed deep vein thrombosis. The patient was admitted to [facility] in mid December, presenting with acute saddle pulmonary embolism with RV strain and clot in transit in the right atrium. She was administered 50 mg of TPA. She unfortunately developed a hematoma surrounding the spinal stimulator with external hemorrhage. She was subsequently transferred to [facility] on the 05 of January. She was ultimately discharged on b.i.d. Eliquis for a provoked saddle embolism. Apparently, the patient had a laminectomy performed in late November and also contracted COVID-19 in October of this year. The patient was recently to see both her primary provider and apparently cardiology and complained of progressive swelling and pain involving her left lower extremity. A Doppler examination confirmed acute DVT involving the femoral vein. She was subsequently sent to the Emergency Room at the request of her physician because the patient had been compliant on DOAC therapy and thus deemed a failure. PAST MEDICAL HISTORY: Significant for saddle pulmonary embolism, hypertension, gastroesophageal reflux disease and asthma. PAST SURGICAL HISTORY: Laminectomy performed in November of 2020, tonsillectomy. MEDICATIONS: She is on probiotic 1 capsule p.o. daily, Soma 350 mg p.o. q.i.d., oxybutynin chloride 5 mg p.o. t.i.d., oxycodone 10 mg p.o. q. 6 hours p.r.n., tolterodine 2 mg p.o. b.i.d., Celexa 10 mg p.o. daily, Prilosec 20 mg p.o. daily, albuterol 2 puffs inhaled q.i.d. p.r.n., Eliquis 5 mg p.o. b.i.d., gabapentin 300 mg p.o. b.i.d. and 600 mg at bedtime. ALLERGY LIST: Extensive -- CEPHALEXIN, CIPROFLOXACIN, NAPROSYN, SULFA, ADHESIVE TAPE, CRANBERRY, HYDROCHLOROTHIAZIDE, LAMOTRIGINE, NITROFURANTOIN, DULOXETINE, NONSTEROIDAL ANTI-INFLAMMATORIES, TOPIRAMATE, SERTRALINE, TRAMADOL AND VENLAFAXINE. SOCIAL HISTORY: The patient is . She lives with her spouse. She is presently disabled. Negative for cigarettes, alcohol or illicit substances. REVIEW OF SYSTEMS: GENERAL: Negative for fevers, chills or sweats. She is not anorexic or losing weight. SKIN: No rashes or lesions. No history of dermatoses. HEENT: Negative for headaches, lightheadedness or dizziness. No acute visual or hearing deficits. No sinus symptoms, sore throat or dysphagia. LYMPH: No history of lymphoproliferative disease. CARDIAC: No history of coronary artery disease. PULMONARY: Positive history of asthma. Positive history of saddle pulmonary embolism. She is not acutely short of breath, dyspneic or orthopneic at present time. GASTROINTESTINAL: Negative for abdominal pain, nausea, vomiting, diarrhea or constipation, hematochezia or melena stools. GENITOURINARY: No hematuria, dysuria, urinary incontinence. PSYCHIATRIC: Negative for anxiety, depression or psychoses. MUSCULOSKELETAL: Recent laminectomy, no arthralgias, no focal muscle weakness. ENDOCRINE: Negative for diabetes or thyroid disease. NEUROLOGIC: Negative for seizure, stroke, or migraine headache. HEMATOLOGIC: Positive for prior pulmonary embolism, now with DVT and anticoagulant failure. PHYSICAL EXAMINATION: GENERAL: Very pleasant 60-year-old female, awake, alert and appropriate, in no acute distress. VITAL SIGNS: Temperature 36.5, pulse 72, respiratory rate 16, blood pressure 133/82. SKIN: Warm, dry, noncyanotic without petechia, rash or ecchymosis. HEENT: Head is atraumatic, normocephalic. Eyes: PERRLA, EOMI. Sclerae nonicteric. No conjunctival injection. Nares are patent without rhinorrhea or discharge. Throat clear. Tongue midline. Mucous membranes are moist. NECK: Supple without JVD or thyromegaly. LYMPHATICS: No cervical or supraclavicular palpable nodes. HEART: Regular rate and rhythm. No clicks, rubs, murmurs or gallops. LUNGS: Clear to auscultation bilaterally. ABDOMEN: Soft, nontender, nondistended, without palpable hepatosplenomegaly. EXTREMITIES: Moderate swelling involving the left lower extremity as compared to right. No clubbing, cyanosis or edema. MUSCULOSKELETAL: Strength is equal in all 4 quadrants. NEUROLOGICAL: Awake, alert and oriented x3. Cranial nerves grossly intact. LABORATORY DATA: WBC count 4790, hemoglobin 12.3, platelet count 261,000. PT 10.9 seconds, PTT 24 seconds. Sodium 145, potassium 3.6, chloride 112, carbon dioxide 26, creatinine 0.98, BUN 10. Urinalysis reveals positive for nitrites, 10-30 WBCs, 4+ bacteria. IMPRESSION: 1. Left lower extremity deep vein thrombosis. 2. Saddle pulmonary embolism diagnosed in December of 2020. 3. Urinary tract infection. 4. Anxiety. PLAN: It was my pleasure to visit with the patient this morning at bedside. This patient has a somewhat complex recent past medical history beginning with saddle pulmonary embolism diagnosed in mid December requiring TPA and subsequently developed bleed/hematoma. Ultimately, she was placed on Eliquis and states strict compliance up to admission. 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 Doppler was positive for acute DVT involving femoral vein and thus was summoned to the Emergency Room for admission. DOAC failure is not that uncommon, but certainly more problem with Xarelto. That said, clearly this is confirmed anticoagulant failure and agree with heparin drip. I would then proceed with Coumadin and ask Dr. Campbell to manage her moving forward. Apparently hypercoag panel was done as there is a history of factor V Leiden positivity involving the patient's daughter. Advised the patient where factor V Leiden will not impact the duration of anticoagulation. However, in this lady's case and her propensity to thrombus, she will probably remain on indefinite anticoagulation moving forward, no matter the hypercoag results. We will plan to reconvene with her in the outpatient arena specifically to discuss duration of anticoagulation and review hypercoag panel. I have nothing further to add at this time. Feel free to contact me at any time. I will have coverage over the weekend, Dr. Cuello but will have my phone available for any questions or concerns.
--- NOTE | 2021-02-05 15:54 | Hospitalist Progress Note ---
Date of Service February 05, 2021 Assessment & Plan (1) DVT (deep venous thrombosis): 60yo C female with history of saddle PE in December s/p tPA on Eliquis anticoagulation presenting with LLE DVT, presumed acute. Patient states she has been taking her Eliquis as prescribed and has not missed any doses. Concern for Eliquis failure. Patient's daughter reportedly with intracranial clot and was diagnosed with Factor V Leiden mutation - details unknown Extensive LLE DVT. CTA not concerning for new PE. -Heparin bridge to Coumadin. Continue to follow daily INR. (2) Pulmonary embolism: Now really more chronic PE after treatment with thrombolytics and anticoagulants. Continue anticoagulation. Given her recurrent events, I agree with hematology that she likely would be best served with indefinite anticoagulation (3) Anxiety: Lexapro, supportive care (4) Liver lesion: Noted on imaging. LFTs WNL -Unable to get MRI abdomen due to her spinal stimulatorultrasound ordered. (5) UTI (urinary tract infection): +UA, history of overactive bladder. Multiple allergies. Had black-sensitive proteus in culture in the past -Fosfomycin x 1 dose -Has had no further complaints in this regard (6) Chronic pain: Chronic -Continue Gabapentin at home dose -Continue Carioprodol/Soma QID -Continue Oxycodone PRN No clear worrisome etiologies noted for her knee or foot pain todaywe agreed to follow how she is doing (7) Overactive bladder: Chronic -Continue Oxybutynin -Continue Tolterodine Admission and Anticipated Discharge Date Admission Date: February 03, 2021 Subjective Main complaint is a little bit of left medial knee and left foot pain. Fairly nonspecific seems to be stabbing with movement. Just started maybe an hour or 2 ago, no clear inciting factorshe was sitting in the chair. Nothing really clearly seems to make it better either, although she notes it was quite transient. Otherwise she feels okay. Discussed Coumadin furtherdiscussing implications with stability of vitamin K in her diet Review of Systems Review of Systems: All systems reviewed & are unremarkable except as noted in HPI & below Physical Exam Physical Exam: General she is awake and alert pleasant no distress. HEENT normocephalic atraumatic mucous membranes moist. Breathing unlabored no accessory muscle use good effort. Skin shows no rashes no pallor or icterus. Musculoskeletal shows no real reproducible tenderness other than maybe a little bit of tightness to her distal medial quadricep muscle, her foot is a little bit of chronic arthritic changes but no erythema, no edema, no joint tenderness, no crepitus, no gross abnormalitiesespecially not acute. Neuro shows no focal deficits. Results & Data Results & Data ([facility]) Vital Signs (Past 12 Hours) Vital Signs Temp Pulse Pulse Resp BP Pulse Ox 02/05/21 15:29 97 H 02/05/21 14:55 98.6 F 68 18 142/82 H 93 02/05/21 11:32 97.9 F 81 20 140/86 93 02/05/21 07:43 97.7 F 78 18 172/90 H 92 02/05/21 07:16 63 02/05/21 04:15 98.1 F 75 18 121/77 96 PG Care Time/CCT Total # of Minutes Spent Total Time Spent with Patient: Total time spent is greater than 50% in coordination of care (as documented) at patient's floor/unit and/or counseling patient: Coding Level of Care Code 82132 Subseq Hosp Care Lvl 3 Diagnoses DVT (deep venous thrombosis) I82.409 Pulmonary embolism I26.99 Pulmonary embolism type: unspecified Chronicity: unspecified Acute cor pulmonale presence: unspecified Anxiety F41.9 Liver lesion K76.9 UTI (urinary tract infection) N39.0 Urinary tract infection type: site unspecified Hematuria presence: without hematuria Chronic pain G89.29 Chronic pain type: other chronic pain Overactive bladder N32.81 (1) Pulmonary embolism Pulmonary embolism type: unspecified Chronicity: unspecified Acute cor pulmonale presence: unspecified Qualified Code(s): I26.99 - Other pulmonary embolism without acute cor pulmonale (2) UTI (urinary tract infection) Urinary tract infection type: site unspecified Hematuria presence: without hematuria Qualified Code(s): N39.0 - Urinary tract infection, site not specified (3) Chronic pain Chronic pain type: other chronic pain Qualified Code(s): G89.29 - Other chronic pain
[2021-02-05] MEDS ORDERED: WARFARIN SOD 10 MG TAB PO SCH (16:00)
--- NOTE | 2021-02-05 16:26 | Ultrasound Report ---
US abdomen limited CLINICAL HISTORY: eval liver lesions COMPARISON STUDY: CT scan of chest dated 02/03/2021 FINDINGS: The pancreas is sonographically unremarkable. The gallbladder appears sonographically normal. There is no ductal dilatation. The common bile duct measures 4 mm. There is no right-sided hydronephrosis. There is a 1 cm right hepatic lobe hypodensity, likely representing a cyst. The additional hepatic le sions described on the prior CT scan are nonvisualized. As previously stated, dedicated MRI the liver is recommended in follow-up. IMPRESSION: 1. Ultrasonographically normal bladder and pancreas. No ductal dilatation 2. Hepatic masses described on the recent CT scan was not visualized ultrasonographically. As prevrajivu lainey stated, a dedicated MRI of the liver is recommended in follow-up. ACT 112: Negative or not required by law. Electronically signed by: Marlo Munguia M.D. 02/05/2021 4:24 PM
[2021-02-05] MEDS: HEPARIN SODIUM/DEXTROSE 25,000 UNITS/500 ML BAG IV SCH (16:30)
[2021-02-05] MEDS ORDERED: POLYETHYLENE (MIRALAX) 17 GM PACK PO ONE (21:45)
[2021-02-06 06:53] LABS: Hematocrit (blood only) 35.7 % (37-47); Mean Corpuscular Hemoglobin 28.1 pg (25-34); Mean Corpuscular Hgb Conc 30.8 g/dL (32-36); Mean Corpuscular Volume 91.3 fL (80-100); Mean Platelet Volume 10.6 fL (7.4-10.4); Platelet Count 244 K/uL (130-400); RDW Coefficient of Variation 16.2 % (11.5-14.5); RDW Standard Deviation 54.1 fL (36.4-46.3); Red Blood Count 3.91 M/uL (4.2-5.4); White Blood Count 3.77 K/uL (4.8-10.8)
[2021-02-06 07:14] LABS: INR 1.5 (0.9-1.1); Partial Thromboplastin Ratio 2.4; Prothrombin Time 14.4 Seconds (9.0-12.0)
[2021-02-06 07:19] LABS: Partial Thromboplastin Time 62.3 Seconds (21.0-31.0)
[2021-02-06 07:20] LABS: Basophils # (auto) 0.01 K/uL (0-0.2); Basophils % (auto) 0.3 %; Eosinophils # (auto) 0.16 K/uL (0-0.5); Eosinophils % (auto) 4.2 %; Lymphocytes % (auto) 50.4 %; Monocytes # (auto) 0.35 K/uL (0.11-0.59); Monocytes % (auto) 9.3 %; Neutrophils # (auto) 1.35 K/uL (1.4-6.5); Neutrophils % (auto) 35.8 %
[2021-02-06] MEDS: TOLTERODINE TARTRATE 2 MG TAB PO SCH ×2 (08:21→21:07)
[2021-02-06] MEDS: CARISOPRODOL 350 MG TABLET PO SCH ×4 (08:21→21:11)
[2021-02-06] MEDS: OXYBUTYNIN CHLORIDE 5 MG TAB PO SCH ×3 (08:21→21:06)
[2021-02-06] MEDS: ADVANCED PROBIOTIC 1250 MG CAPSULE PO SCH (08:22)
[2021-02-06] MEDS: GABAPENTIN 300 MG CAP PO SCH ×3 (08:22→21:06)
[2021-02-06] MEDS: ESCITALOPRAM OXALATE 10 MG TAB PO SCH (08:22)
[2021-02-06] MEDS: PANTOprazole 40 MG TAB PO PRN (08:22)
[2021-02-06] MEDS: oxyCODONE HCL IR 5 MG TAB (IMMEDIATE RELEASE) PO PRN ×2 (12:07→22:35)
[2021-02-06] MEDS: HEPARIN SODIUM/DEXTROSE 25,000 UNITS/500 ML BAG IV SCH (13:11)
[2021-02-06] MEDS: WARFARIN SOD 5 MG TAB PO SCH (15:53)
--- NOTE | 2021-02-06 15:54 | Hospitalist Progress Note ---
Date of Service February 06, 2021 Assessment & Plan (1) DVT (deep venous thrombosis): 60yo C female with history of saddle PE in December s/p tPA on Eliquis anticoagulation presenting with LLE DVT, presumed acute. Patient states she has been taking her Eliquis as prescribed and has not missed any doses. Concern for Eliquis failure. Patient's daughter reportedly with intracranial clot and was diagnosed with Factor V Leiden mutation - details unknown Extensive LLE DVT. CTA not concerning for new PE. -Heparin bridge to Coumadin. Continue to follow daily INR. Was on 10 mg 02/04, 02/05, given a nice jump in her INR, we will switch to 5 mg moving forward (2) Pulmonary embolism: Now really more chronic saddle PE after treatment with thrombolytics and anticoagulants. Continue anticoagulation. Given her recurrent events, I agree with hematology that she likely would be best served with indefinite anticoagulation. Continue to follow INR (3) Anxiety: Lexapro, supportive care (4) Liver lesion: Noted on imaging. LFTs WNL -Unable to get MRI abdomen due to her spinal stimulatorultrasound unfortunately was unable to see one of the lesions. Will need to discuss with radiology the best approach given that the preferred testing may be incompatible with her stimulator. (5) UTI (urinary tract infection): +UA, history of overactive bladder. Multiple allergies. Had black-sensitive proteus in culture in the past -Fosfomycin x 1 dose -Has had no further complaints in this regard (6) Chronic pain: -Continue Gabapentin at home dose -Continue Carioprodol/Soma QID -Continue Oxycodone PRN -Hopefully her INR will be therapeutic to get her to her spine doctor appointment in 2 days (7) Overactive bladder: Chronic -Continue Oxybutynin -Continue Tolterodine Admission and Anticipated Discharge Date Admission Date: February 03, 2021 Subjective Feeling okay overall. Denies ongoing foot or leg painnoting that she has been given pain medicine. But does not note this to be an ongoing problem. Wonders when she might be L to be discharged, as she has a follow-up with her back doctor in [place]. Updated on INR. Updated on liver ultrasound. Review of Systems Review of Systems: All systems reviewed & are unremarkable except as noted in HPI & below Physical Exam Physical Exam: In general she is awake and alert pleasant no distress. HEENT normocephalic atraumatic mucous membranes moist. Breathing unlabored no accessory muscle use good effort. Skin shows no rashes no pallor or icterus. Neuro shows no focal deficits. Results & Data Results & Data ([facility]) Vital Signs (Past 12 Hours) Vital Signs Temp Pulse Pulse Pulse Resp BP Pulse Ox 02/06/21 15:25 64 02/06/21 15:00 98.2 F 65 20 138/82 94 02/06/21 11:57 98.4 F 71 17 144/96 H 94 02/06/21 07:45 98.1 F 62 16 138/96 96 02/06/21 07:10 65 02/06/21 06:47 98.2 F 66 18 140/75 95 02/06/21 04:07 98.1 F 71 18 139/80 94 PG Care Time/CCT Total # of Minutes Spent Total Time Spent with Patient: Total time spent is greater than 50% in coordination of care (as documented) at patient's floor/unit and/or counseling patient: Coding Level of Care Code 30957 Subseq Hosp Care Lvl 2 Diagnoses DVT (deep venous thrombosis) I82.409 Pulmonary embolism I26.99 Pulmonary embolism type: unspecified Chronicity: unspecified Acute cor pulmonale presence: unspecified Anxiety F41.9 Liver lesion K76.9 UTI (urinary tract infection) N39.0 Urinary tract infection type: site unspecified Hematuria presence: without hematuria Chronic pain G89.29 Chronic pain type: other chronic pain Overactive bladder N32.81 (1) Pulmonary embolism Pulmonary embolism type: unspecified Chronicity: unspecified Acute cor pulmonale presence: unspecified Qualified Code(s): I26.99 - Other pulmonary embolism without acute cor pulmonale (2) UTI (urinary tract infection) Urinary tract infection type: site unspecified Hematuria presence: without hematuria Qualified Code(s): N39.0 - Urinary tract infection, site not specified (3) Chronic pain Chronic pain type: other chronic pain Qualified Code(s): G89.29 - Other chronic pain
[2021-02-06] MEDS ORDERED: MAGNESIUM CITRATE 296 ML/BTL PO STA (17:13)
[2021-02-06] MEDS: POLYETHYLENE (MIRALAX) 17 GM PACK PO SCH (21:07)
[2021-02-07] MEDS ORDERED: NITROGLYCERIN SL 0.4 MG/TAB TAB SL STA (06:21)
--- NOTE | 2021-02-07 06:58 | Ultrasound Report ---
LEFT LOWER EXTREMITY VENOUS DOPPLER CLINICAL HISTORY: LLE DVT propagation COMPARISON STUDY: Bilateral lower extremity venous Doppler ultrasound February 04, 2021. TECHNIQUE: Sonography of the deep venous system of the left lower extremity was performed. Compressi on and augmentation were evaluated. FINDINGS: Left common femoral vein is patent. There is occlusive deep venous thrombus within the left superficial femoral and popliteal veins. This thrombus was shown on ultrasound of February 04, 2021. The re is deep venous thrombus within the left posterior tibial vein. This was not clearly identified on prior exam. IMPRESSION: Minimal change since ultrasound February 04, 2021 although comparison by sonography is diffic ult. Occlusive deep venous thrombus within the left superficial femoral and popliteal veins which was shown on prior exam. Suspected thrombus within the left posterior tibial vein which was not identifi ed on prior exam. ACT 112: Negative or not required by law. Electronically signed by: Adin Nunez M.D. 02/07/2021 6:56 AM
[2021-02-07] MEDS ORDERED: ALUMINUM/MAGNESIUM SUSP 18 ML, LIDOCAINE VISCOUS 2% SOLN 6 ML, BARCODE IDENTIFIER 1 EA PO ONE (07:00)
[2021-02-07] MEDS: HEPARIN SODIUM/DEXTROSE 25,000 UNITS/500 ML BAG IV SCH (07:10)
[2021-02-07 07:31] LABS: Partial Thromboplastin Ratio 2.4; Prothrombin Time 19.2 Seconds (9.0-12.0)
--- NOTE | 2021-02-07 07:40 | Hospitalist Progress Note ---
Date of Service February 07, 2021 Assessment & Plan (1) DVT (deep venous thrombosis): 60yo C female with history of saddle PE in December s/p tPA on Eliquis anticoagulation presenting with LLE DVT, presumed acute. Patient states she has been taking her Eliquis as prescribed and has not missed any doses. Concern for Eliquis failure. Patient's daughter reportedly with intracranial clot and was diagnosed with Factor V Leiden mutation - details unknown LE u/s 02/04 IMPRESSION: 1. Occlusive DVT within the left superficial femoral and popliteal veins. 2. No DVT within the right lower extremity. LE u/s 02/07 IMPRESSION: Minimal change since ultrasound February 04, 2021 although comparison by sonography is difficult. Occlusive deep venous thrombus within the left superficial femoral and popliteal veins which was shown on prior exam. Suspected thrombus within the left posterior tibial vein which was not identified on prior exam. CTA 02/03/21 IMPRESSION: 1. Bilateral pulmonary artery filling defects, likely representing residua from the patient's previously described large saddle embolus. 2. It is obviously not possible to exclude new emboli without a posttreatment baseline. The overall thrombus burden is however markedly decreased when compared the prior study. 3. Stable 5 mm right upper lobe pulmonary nodule 4. Moderate to large hiatal hernia . Indeterminate hepatic masses including a 28 mm right hepatic lobe lesion. A dedicated MRI the liver is recommended in follow-up.. -Heparin bridge to Coumadin. Continue to follow daily INR. Was on 10 mg 02/04, 02/05, given a nice jump in her INR, we will switch to 5 mg moving forward (2) Pulmonary embolism: Now really more chronic saddle PE after treatment with thrombolytics and anticoagulants. Continue anticoagulation. Given her recurrent events, I agree with hematology that she likely would be best served with indefinite anticoagulation. Patient has achieved a therapeutic INR heparin drip was stopped (3) Anxiety: Lexapro, supportive care (4) Liver lesion: Noted on imaging. LFTs WNL -Unable to get MRI abdomen due to her spinal stimulator Abdominal ultrasound 02/05/21 IMPRESSION: 1. Ultrasonographically normal bladder and pancreas. No ductal dilatation 2. Hepatic masses described on the recent CT scan was not visualized ultrasonographically. As previously stated, a dedicated MRI of the liver is recommended in follow-up. However cannot do due to spinal stimulator Will need to have outpt follow up maybe GI referral for EUS etc for further diagnosis (5) UTI (urinary tract infection): +UA, history of overactive bladder. Multiple allergies. Multidrug resistant E Coli -Fosfomycin x 1 dose -Has had no further complaints in this regard (6) Chronic pain: -Continue Gabapentin at home dose -Continue Carioprodol/Soma QID -Continue Oxycodone PRN (7) Overactive bladder: Chronic -Continue Oxybutynin -Continue Tolterodine Admission and Anticipated Discharge Date Admission Date: February 03, 2021 Subjective this pt is feeling better she is having some pelvic musculoskeletal pain at josh es, she is now off her heparin gtt, concern for coumadin and compliance are raised given its narrow therapeutic window Review of Systems Review of Systems: Mild distress and fatigue mostly complaining of musculoskeletal leg and pelvic pain no headache, no visual changes no speech or swallowing issues no chest pain, pressure or palpitations no shortness of breath, cough or wheezes no abdominal pain, nausea or vomiting, diarrhea or constipation no dysuria, hematuria or frequency Left leg lower extremity pain but and soft tissue not joint related has some pain up towards her left hip and bony pelvis worse with movement and laying in certain positions no back pain, CVA tenderness or radicular pain no bruising, bleeding or rashes no focal signs of weakness or numbness or altered sensation no complaints of anxiety or depression.. Physical Exam Physical Exam: The patient appeared well nourished and normally developed. Vital signs as documented. Head exam is normocephalic atraumatic Neck is without JVD, thyromegaly, or carotid bruits. Lungs are clear to auscultation, no focal loss of breath sounds Cardiac exam, Rhythm is regular.. No murmurs, rubs or gallops. Abdominal exam reveals normal bowel sounds, soft non tender, no masses Extremities are nonedematous and both pedal pulses are present There is no overt swelling or tender foci in her calves or thighs she has some pain to external rotation of her left hip Neurologic exam is alert and oriented, no focal loss of strength or sensation Skin is without bruises or rashes Psychologically is without concerns for anxiety or depression Results & Data Results & Data ([facility]) Vital Signs (Past 12 Hours) Vital Signs Temp Pulse Pulse Resp BP Pulse Ox 02/07/21 07:25 65 06/14/21 06:11 97.7 F 68 16 134/83 95 02/07/21 03:13 97.9 F 65 18 134/76 95 02/06/21 23:04 97.7 F 70 20 103/65 94 02/06/21 22:19 82 PG Care Time/CCT Total # of Minutes Spent Total Time Spent with Patient: Total time spent is greater than 50% in coordination of care (as documented) at patient's floor/unit and/or counseling patient: Coding Level of Care Code 40338 Subseq Hosp Care Lvl 2 Diagnoses DVT (deep venous thrombosis) I82.409 Pulmonary embolism I26.99 Acute cor pulmonale presence: unspecified Chronicity: unspecified Pulmonary embolism type: unspecified Anxiety F41.9 Liver lesion K76.9 UTI (urinary tract infection) N39.0 Hematuria presence: without hematuria Urinary tract infection type: site unspecified Chronic pain G89.29 Chronic pain type: other chronic pain Overactive bladder N32.81 (1) UTI (urinary tract infection) Hematuria presence: without hematuria Urinary tract infection type: site unspecified Qualified Code(s): N39.0 - Urinary tract infection, site not specified (2) Chronic pain Chronic pain type: other chronic pain Qualified Code(s): G89.29 - Other chronic pain (3) Pulmonary embolism Acute cor pulmonale presence: unspecified Chronicity: unspecified Pulmonary embolism type: unspecified Qualified Code(s): I26.99 - Other pulmonary embolism without acute cor pulmonale
[2021-02-07 07:48] LABS: Partial Thromboplastin Time 63.3 Seconds (21.0-31.0)
[2021-02-07] MEDS: OXYBUTYNIN CHLORIDE 5 MG TAB PO SCH ×3 (08:27→20:46)
[2021-02-07] MEDS: GABAPENTIN 300 MG CAP PO SCH ×3 (08:28→20:47)
[2021-02-07] MEDS: ESCITALOPRAM OXALATE 10 MG TAB PO SCH (08:28)
[2021-02-07] MEDS: PANTOprazole 40 MG TAB PO PRN (08:28)
[2021-02-07] MEDS: ADVANCED PROBIOTIC 1250 MG CAPSULE PO SCH (08:28)
[2021-02-07] MEDS: TOLTERODINE TARTRATE 2 MG TAB PO SCH ×2 (08:28→20:47)
[2021-02-07] MEDS: POLYETHYLENE (MIRALAX) 17 GM PACK PO SCH ×2 (08:29→20:47)
[2021-02-07] MEDS: CARISOPRODOL 350 MG TABLET PO SCH ×4 (08:40→20:47)
--- NOTE | 2021-02-07 08:57 | Communication Note ---
Date of Service: February 07, 2021 Pt's venous US done today was compared to previous from 3 days ago, does not demonstrate changes concerning for thrombus propagation. No indications for IVC filter insertion at this time. Pt aware. Please call if needed.
--- NOTE | 2021-02-07 12:42 | Electrocardiogram Report ---
Test Reason : Blood Pressure : / mmHG Vent. Rate : 066 BPM Atrial Rate : 066 BPM P-R Int : 130 ms QRS Dur : 078 ms QT Int : 428 ms P-R-T Axes : 027 -07 008 degrees QTc Int : 448 ms Normal sinus rhythm Moderate voltage criteria for LVH, may be normal variant possible Inferior infarct , age undetermined Abnormal ECG When compared with ECG of 03-FEB-2021 18:18, Inferior infarct is now Present Confirmed by Jeremy Mason ([id number]) on 02/07/2021 12:42:46 PM Referred By: REFERRED SELF Confirmed By:Gilmar Mason
[2021-02-07] MEDS: WARFARIN SOD 5 MG TAB PO SCH (16:37)
[2021-02-07] MEDS: oxyCODONE HCL IR 5 MG TAB (IMMEDIATE RELEASE) PO PRN (16:42)
--- NOTE | 2021-02-07 23:05 | XRay Report ---
XR hip LT 2V w pelvis CLINICAL HISTORY: painful hip to movement COMPARISON: None. DISCUSSION: The bones and joint spaces appear intact. There is no evidence of fracture, dislocation o r bony disease. There is no evidence for soft tissue swelling. IMPRESSION: Negative study. ACT 112: Negative or not required by law. The above report was generated using voice recognition software. It may contain grammatical, syntax o r spelling errors. Electronically signed by: Ursula Guajardo DO 02/07/2021 11:03 PM
[2021-02-08 07:33] LABS: Basophils # (auto) 0.02 K/uL (0-0.2); Basophils % (auto) 0.5 %; Eosinophils % (auto) 5.4 %; Hematocrit (blood only) 39.6 % (37-47); Hemoglobin 12.2 g/dL (12.0-16.0); Immature Granulocytes # (auto) 0.01 K/uL (0.00-0.02); Immature Granulocytes % (auto) 0.3 %; Mean Corpuscular Hemoglobin 27.9 pg (25-34); Mean Corpuscular Hgb Conc 30.8 g/dL (32-36); Mean Corpuscular Volume 90.6 fL (80-100); Mean Platelet Volume 10.1 fL (7.4-10.4); Monocytes # (auto) 0.26 K/uL (0.11-0.59); Monocytes % (auto) 7.1 %; Neutrophils # (auto) 1.79 K/uL (1.4-6.5); Neutrophils % (auto) 48.7 %; Platelet Count 230 K/uL (130-400); RDW Coefficient of Variation 15.9 % (11.5-14.5); Red Blood Count 4.37 M/uL (4.2-5.4); White Blood Count 3.68 K/uL (4.8-10.8)
[2021-02-08 07:42] LABS: INR 2.3 (0.9-1.1); Prothrombin Time 21.5 Seconds (9.0-12.0)
[2021-02-08] MEDS: POLYETHYLENE (MIRALAX) 17 GM PACK PO SCH (08:10)
[2021-02-08] MEDS: GABAPENTIN 300 MG CAP PO SCH ×2 (08:10→14:59)
[2021-02-08] MEDS: ESCITALOPRAM OXALATE 10 MG TAB PO SCH (08:10)
[2021-02-08] MEDS: OXYBUTYNIN CHLORIDE 5 MG TAB PO SCH ×2 (08:10→14:59)
[2021-02-08] MEDS: ADVANCED PROBIOTIC 1250 MG CAPSULE PO SCH (08:10)
[2021-02-08] MEDS: TOLTERODINE TARTRATE 2 MG TAB PO SCH (08:10)
[2021-02-08] MEDS: CARISOPRODOL 350 MG TABLET PO SCH ×2 (08:16→14:58)
[2021-02-08] MEDS: oxyCODONE HCL IR 5 MG TAB (IMMEDIATE RELEASE) PO PRN (08:19)
[2021-02-08] MEDS ORDERED: ERTAPENEM SODIUM 1,000 MG in SODIUM CHLORIDE 0.9% 50 ML IV SCH (13:00)
[2021-02-08] MEDS ORDERED: FOSFOMYCIN TROMETHAMINE 3 GM PACKET PO SCH (14:45)
[2021-02-08] MEDS: WARFARIN SOD 5 MG TAB PO SCH (15:38)
--- NOTE | 2021-02-08 19:30 | Discharge Summary ---
Date of Service February 08, 2021 Admission HPI Per Admitting Provider Bonnie Carmen is a 60yo C female with history of HTN, GERD presenting with LLE DVT. Patient was admitted to [facility] on 01/04/21 after presenting with acute saddle pulmonary embolism with RV strain and clot in transit in the right atrium - Class II PESI score, high risk sPESI - she was administered 50mg IV tPA. Patient developed hematoma surrounding her spinal stimulator with external hemorrhage. She was transferred to [facility] on 01/05/21. Patient did well and was discharged on Eliquis with plans for anticoagulation for 3-6 months for provoked PE. (Initial clot provoked - patient had a laminectomy performed on 12/20/20. Also with recent history o Covid-19 infection in October). She was seen by her PCP on 01/13/21 and noted to have a small amount of pitting edema of the LLE though to be secondary to mild lymphedema - patient was on Eliquis at that time. Patient continue to have swelling and pain in her LLE with acute worsening over the last week. She had a LLE doppler performed today by Dr. Horton which was POSITIVE for acute DVT from the femoral vein. Patient was subsequently sent to the ER at request of Dr. Frankel for concern for Eliquis failure at risk for recurrent PE. Patient with no acute complaints. She reports stable BLACKMAN since her initial PE but does not endorse acute worsening of this symptom. She denies cough, hemoptysis or chest pain. She has occasional palpitations. No syncope. She has pain and swelling in her LLE. No additional complaints at this time. ER - afebrile, HD stable, no respiratory distress. CTA performed which demonstrated decreased clot burden from prior PE - no obvious new PE. Principal Diagnosis Venous thromboembolism while on Eliquis previous history of pulmonary embolism also Discharge Exam The patient appeared well Vital signs as documented. Pulmonary effort is unlabored Extremities are nonedematous Neurologic exam is alert and oriented, no focal loss of strength or sensation Skin is without bruises or rashes Psychologically is without concerns for anxiety or depression. Discharge Data Allergies Allergy/AdvReac Type Severity Reaction Status Date / Time cephalexin Allergy Unknown ` Verified 02/03/21 12:46 ciprofloxacin [From Cipro] Allergy Unknown Unknown Verified 02/03/21 12:46 naproxen Allergy Unknown ` Verified 02/03/21 12:46 Sulfa (Sulfonamide Allergy Unknown ` Verified 02/03/21 12:46 Antibiotics) adhesive tape Allergy makes skin Verified 02/03/21 20:04 red & swollen cranberry Allergy Unknown Verified 02/03/21 12:46 hydrochlorothiazide Allergy Unknown Verified 02/03/21 12:46 [From HydroDiuril] lamotrigine Allergy Unknown Verified 02/03/21 12:46 nitrofurantoin Allergy Unknown Verified 02/03/21 12:46 [From Macrodantin] duloxetine AdvReac Mild heart Verified 02/03/21 12:46 racing NSAIDS (Non-Steroidal AdvReac Unknown UNKNOWN Verified 02/03/21 12:46 Anti-Inflamma topiramate AdvReac Unknown arms Verified 02/03/21 12:46 became severly cold sertraline AdvReac Unknown Verified 02/03/21 12:46 tramadol AdvReac Unknown Verified 02/03/21 12:46 venlafaxine AdvReac Unknown Verified 02/03/21 12:46 Consultations 02/03/21 19:57 ED Decision to Admit Stat 02/04/21 00:58 Consult Hematology Routine Consult Vascular Surgery Routine Ordered Studies 02/03/21 18:00 CT angio chest PE protocol Stat 02/04/21 07:18 US venous doppler LE BI Stat 02/05/21 08:23 US abdomen limited Routine 02/07/21 07:00 US venous doppler LE LT Routine Hospital Course (1) DVT (deep venous thrombosis): 60yo C female with history of saddle PE in December s/p tPA on Eliquis anticoagulation presenting with LLE DVT, presumed acute. Patient states she has been taking her Eliquis as prescribed and has not missed any doses. Concern for Eliquis failure. Patient's daughter reportedly with intracranial clot and was diagnosed with Factor V Leiden mutation - details unknown LE u/s 02/04 IMPRESSION: 1. Occlusive DVT within the left superficial femoral and popliteal veins. 2. No DVT within the right lower extremity. LE u/s 02/07 IMPRESSION: Minimal change since ultrasound February 04, 2021 although comparison by sonography is difficult. Occlusive deep venous thrombus within the left superficial femoral and popliteal veins which was shown on prior exam. Suspected thrombus within the left posterior tibial vein which was not identified on prior exam. CTA 02/03/21 IMPRESSION: 1. Bilateral pulmonary artery filling defects, likely representing residua from the patient's previously described large saddle embolus. 2. It is obviously not possible to exclude new emboli without a posttreatment baseline. The overall thrombus burden is however markedly decreased when compared the prior study. 3. Stable 5 mm right upper lobe pulmonary nodule 4. Moderate to large hiatal hernia . Indeterminate hepatic masses including a 28 mm right hepatic lobe lesion. A dedicated MRI the liver is recommended in follow-up.. -Heparin bridged to Coumadin. INR is been therapeutic for 2 days reduce dose to 4 mg a day recommend outpatient INR in 2 days enrollment in Coumadin clinic with Dr. Suarez patient was verbally instructed on these orders given a paper prescription for PT/INR's and I did fill out the enrollment form for the Coumadin clinic (2) Pulmonary embolism: Now really more chronic saddle PE after treatment with thrombolytics and anticoagulants. Continue anticoagulation. Given her recurrent events, I agree with hematology that she likely would be best served with indefinite anticoagulation. Patient has achieved a therapeutic INR heparin drip was stopped (3) Anxiety: Lexapro, supportive care (4) Liver lesion: Noted on imaging. LFTs WNL -Unable to get MRI abdomen due to her spinal stimulator Abdominal ultrasound 02/05/21 IMPRESSION: 1. Ultrasonographically normal bladder and pancreas. No ductal dilatation 2. Hepatic masses described on the recent CT scan was not visualized ultrasonographically. As previously stated, a dedicated MRI of the liver is recommended in follow-up. However cannot do due to spinal stimulator Will need to have outpt follow up maybe GI referral for further surveillance (5) UTI (urinary tract infection): +UA, history of overactive bladder. Multiple allergies. Multidrug resistant E Coli consider using Macrodantin although patient is allergic offered IV or ertapenem although this would require the patient to return for intravenous therapy did discuss this with pharmacy and they feel that it is appropriate to use fosfomycin -Fosfomycin x 1 dose p.o. prior to leaving - (6) Chronic pain: -Continue Gabapentin at home dose -Continue Carioprodol/Soma QID -Continue Oxycodone PRN (7) Overactive bladder: Chronic -Continue Oxybutynin -Continue Tolterodine Total Time Total Time Spent Total Time Spent (In Minutes): It required greater than 30 minutes to prepare this patient for discharge Discharge Plan Discharge Items Patient Disposition: Home - Self-Care Reason For Visit: NEW LLE DVT, ELIQUIS FAILURE Discharge Diagnosis: dvt while on anticoagulation Condition on Discharge: Good Activity: Per Instructions section Activity Comment: elevate your legs as much as able, gradually increase activity Non-emergency contact: Primary Care Provider Call non-emergency contact if: you have any medication questions, your symptoms worsen and you have a fever Follow-up/Referrals: Theresa Stelring CRNP [Primary Care Provider] - 02/17/21 10:30 am Diet: Heart Healthy Ambulatory Orders: Prothrombin Time INR (Routine) Timeframe: 2 Days Location: Determined by Patient Ordered By: Yaakov Ghosh Attending Provider Instructions: Your blood thinner was changed to Coumadin (Warfarin) as you had a blood clot while taking Eliquis. The new medicine is a bit different that Eliquis in the fact that you need to have blood test to assure the medication is working correctly. Additionally the medicine can be affected by other medications, such as antibiotics, to make it work too much or too little. Foods can also affect how this medication works, particularly foods rich in Vitamin K, those tend to be green vegetables, please have your blood checked two days after discharge and then on the advice of your doctor. Never go more than one month between blood checks. There were some changes seen in your liver on CT imaging, there was not changes seen on your liver blood tests, since you cannot have an MRI due to your spinal stimulator it is important that you follow up with a Liver specialist to continue to watch these changes and assure that they are nothing to be concerned about. Medication Instructions: * Warfarin is a medicine prescribed to prevent blood clots * Warfarin will thin your blood and help prevent new clots * Take your medications exactly as directed * Never skip a dose. Never take a double dose. If you miss a dose, take it as soon as you remember * It is important for your doctor to monitor your prothrombin time (PT). This is a lab test * Keep your appointment for lab tests Risk of Adverse Drug Reactions and Interactions: * Warfarin increases your risk of bleeding * The food you eat and other medications you take can affect how Warfarin works in your body * Ask your doctor about daily aspirin therapy * It is very important to talk with your doctor about all of the other medicines, antibiotics, vitamins or herbal products that you are taking * All of your medication must be approved by your doctor, including new medicines, as well as medicines you have taken before you started taking Warfarin Diet: * In order for Warfarin to work properly, it is important to keep your intake of Vitamin K as consistent as possible * You should avoid any sudden change in Vitamin K intake * Report any significant changes in your diet or weight to your doctor Call your Primary Care doctor if you experience any of the following: * Swelling or Pain in your leg * Sudden, continuous pain deep in a muscle * Pain that worsens when you are active or when you stand still for a long time * Chest Pain * Sudden Shortness of Breath * Rapid or pounding heart beat * Fainting * Dizziness * Cough with blood or bloody sputum * Sweating more than normal * Bruises * Heavy or uncontrolled bleeding * Blood in your urine, stool or vomit * Black or tarry stools Caring for Your Self at Home: * Avoid sitting, standing or lying down for long periods without moving your legs and feet * When traveling by car, stop to get out and move around at least once every 3 hours * On long airplane, train or bus rides, get up and move around when possible * If you can't get up, wiggle your toes and tighten your calves to keep your blood moving Follow Up: It is important for you to keep your follow up appointments with your medical provider. Pending Studies at Discharge: Yes Stand-Alone Forms: My [facility], Smoking Cessation Medications and DC Order Prescriptions: New warfarin 4 mg tablet 4 mg PO DAILY Qty: 30 RF: 5 Continued escitalopram oxalate [Lexapro] 10 mg tablet 10 mg PO DAILY Qty: 30 RF: 2 omeprazole 20 mg capsule,delayed release(DR/EC) 20 mg PO DAILY PRN (Reason: reflux) Qty: 30 RF: 2 oxybutynin chloride 5 mg tablet 5 mg PO TID Qty: 90 RF: 8 albuterol sulfate [ProAir HFA] 90 mcg/actuation HFA aerosol inhaler 2 puff INH QID PRN (Reason: shortness of breath or wheezing) Qty: 8 RF: 3 Probiotic 3 billion cell Capsule 1 cap PO DAILY RF: 0 carisoprodol 350 mg tablet 350 mg PO QID RF: 0 oxycodone 10 mg tablet 10 mg PO Q6 PRN (Reason: Pain) RF: 0 tolterodine 2 mg tablet 2 mg PO BID RF: 0 gabapentin 300 mg capsule 600 mg PO HS RF: 0 gabapentin 300 mg capsule 300 mg PO BID RF: 0 Discontinued Eliquis 5 mg tablet 5 mg PO BID RF: 0 Discharge Orders: Discharge Order (Routine); Ordered 02/08/21 Ordered By: Yaakov Torres/Other Patient Handouts: DVT Dc Admission Data Admit Date/Time: 02/03/21 21:05 Attending Provider: Yaakov Minor Admit Provider: Sue Price Primary Care Provider: Theresa Sterling Other Providers: Sue Price ; Harshil Lutz V. ; Dipak Brown Other Interventions: Discharge Summary Assessment (RN) Last Done: 02/08/21 14:46 Coding Level of Care Code D/C Day Management >30 mins Diagnoses DVT (deep venous thrombosis) I82.409 Pulmonary embolism I26.99 Pulmonary embolism type: unspecified Chronicity: unspecified Acute cor pulmonale presence: unspecified Anxiety F41.9 Liver lesion K76.9 UTI (urinary tract infection) N39.0 Urinary tract infection type: site unspecified Hematuria presence: without hematuria Chronic pain G89.29 Chronic pain type: other chronic pain Overactive bladder N32.81
== END 2021-02-08 16:17 | disposition home or self-care (01) | DRG 299 ==
LOC: ED 17:18 → SUATTDRO 21:05 → 2N 21:05

== ENCOUNTER 2025-05-09 11:23 | Inpatient (IN) ==
--- NOTE | 2025-05-09 11:44 | Emergency Department Note ---
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 intravenous contrast. Sagittal and coronal reconstructions were obtained Comparison is made to the prior CT dated 10/15/2015 Findings: No fracture is identified. No listhesis is seen. No focal osseous lesion is evident. There is no definite sign of osteomyelitis There is an L5 laminectomy defect. No spinal fusion is seen At L1-2, no disc herniation is identified. There is no spinal stenosis. The neural foramen are patent At L2-3, there is a minimal disc bulge. There is no spinal stenosis. The neural foramen are patent At L3-4, there is a disc bulge without spinal stenosis. There is mild right greater than left neural foramen narrowing At L4-5, there is mild spinal stenosis due to a disc bulge and a right paracentral disc protrusion that may compress the right L5 nerve root. There is mild bilateral neural foramen narrowing At L5-S1, there is a disc bulge and a central disc herniation without significant spinal stenosis. There is mild bilateral neural foramen narrowing Impression: 1. No definite lumbar spine fracture 2. Mild spinal stenosis at L4-5 with a suspected disc protrusion that may compress the right L5 nerve root Electronically signed by Erasto Lujan 05-09-2025 12:29 PM Pelvis X-Ray 05/09/25 11:25 Clinical History: Trauma 1 view of the pelvis is submitted for review. Findings: No fracture or dislocation is seen. There is mild bilateral hip osteoarthritis. No other osseous abnormality is identified. There are no radiopaque foreign bodies. Impression: Mild bilateral hip osteoarthritis Electronically signed by Erasto Ljuan 05-09-2025 12:[address] 05/09/25 11:25 Clinical history: Trauma Technique: Axial computed tomography images were obtained of the thoracic spine after the administration of intravenous contrast. Sagittal and coronal reconstructions were obtained Comparison is made to the prior CT 01/04/2021 Findings: No fracture is identified. There is scoliosis. No listhesis is seen. No focal osseous lesion is evident. There is no definite sign of osteomyelitis No definite disc herniation is seen at any level. There is no apparent spinal stenosis or definite nerve root compression The stimulator leads previously seen within the spinal canal have been removed Impression: 1. Scoliosis 2. Otherwise unremarkable CT of the thoracic spine Electronically signed by Erasto Lujan 05-09-2025 12:[address] 05/09/25 11:26 Clinical history: Injury Technique: Axial computed tomography images were obtained of the cervical spine without intravenous contrast. Sagittal and coronal reconstructions were obtained Findings: No fracture is identified. No listhesis is seen. No focal osseous lesion is evident. There is atlantoaxial osteoarthritis At C2-3, no disc herniation is identified. There is no spinal stenosis. The neural foramen are patent At C3-4, no disc herniation is identified. There is no spinal stenosis. The neural foramen are patent At C4-5, there is a disc bulge without spinal stenosis. The neural foramen are patent At C5-6, there is a disc bulge without spinal stenosis. There is mild left neural foramen narrowing At C6-7, there is a mild disc bulge. There is no spinal stenosis. The neural foramen are patent At C7-T1,no disc herniation is identified. There is no spinal stenosis. The neural foramen are patent The lung apices appear clear. The visualized soft tissues of the neck appear unremarkable. No foreign body is seen Impression: Unremarkable CT of the cervical spine Electronically signed by Erasto Lujan 05-09-2025 12:[address] 05/09/25 11:26 Clinical History: Trauma Technique: Axial computed tomography images were obtained of the brain from the vertex to the skull base without intravenous contrast. Findings: There is no sign of intracranial hemorrhage. There is normal perez-white matter differentiation with no sign of acute or old infarction. No midline shift or other form of herniation is identified. There is no hydrocephalus. No obvious mass lesion is seen on this noncontrast examination. The visualized portions of the orbits and paranasal sinuses appear unremarkable. The mastoid air cells appear clear Impression: Unremarkable noncontrast CT of the brain Electronically signed by Erasto Lujan 05-09-2025 12:22 PM Discharge Plan Visit Data Chief Complaint: Trauma Stated Complaint: FALL, AMS, BRADYCARDIA ED Provider: James Camacho Discharge Problem: Altered mental status, Dehydration, Rhabdomyolysis, Fall Patient Disposition: Admitted As Inpatient Condition: Serious Forms Stand Alone Forms: [employer] Prescriptions Prescriptions: No Action Master Formula Vitamin 1 cap PO QAM BRAIN BOOST DAILY 1 tab 1 dose PO DAILY Honey compound solution 1 tspn PO DAILY Patient Comments: Honey mixed with eileen pwdr,turmeric pwdr, cinnamon, cayenne, black pepper Rx Instructions: 1 teaspoon once daily "Urinary [place]" 1 dose PO DAILY (DME) spacer device for inhaler See Rx Instructions .Route .MEDSUPPLY Qty: 1 0RF Rx Instructions: As directed gabapentin 400 mg capsule 400 mg PO QID Qty: 360 11RF epinephrine [EpiPen] 0.3 mg/0.3 mL auto-injector 0.3 mg IM DIRECTED PRN (Reason: bronchodilation) Qty: 2 0RF Rx Instructions: until response atorvastatin 10 mg tablet 10 mg PO DAILY Qty: 90 3RF oxybutynin chloride 5 mg tablet 5 mg PO TID Qty: 360 3RF nystatin 100,000 unit/gram powder 1 applic topical BID Qty: 30 4RF warfarin 5 mg tablet See Rx Instructions PO UD Qty: 48 3RF Rx Instructions: 2.5mg q Sunday, 7.5mg x 6 days per [facility] orally use as directed; metoprolol succinate 50 mg tablet extended release 24 hr 50 mg PO HS Qty: 90 3RF losartan 25 mg tablet 25 mg PO QAM Qty: 90 3RF gabapentin 100 mg capsule 100 mg PO BID PRN (Reason: pain) Qty: 60 2RF Rx Instructions: may take 100mg up to twice daily (add to the 400 mg dose) baclofen 10 mg tablet 20 mg PO TID albuterol sulfate 90 mcg/actuation HFA aerosol inhaler 2 puff INHALATION QID PRN (Reason: Shortness Of Breath Or Wheezing) Qty: 8.5 4RF pantoprazole 20 mg tablet,delayed release (DR/EC) 20 mg PO BID Qty: 180 3RF Probiotic 3 billion cell Capsule 1 cap PO QPM oxycodone 10 mg tablet 10 mg PO Q4H PRN (Reason: Pain) Referrals Referrals: Theresa Sterling CRNP [Primary Care Provider] - Discharge Problem: Altered mental status Qualifiers: Altered mental status type: stupor Qualified Code(s): R40.1 - Stupor Rhabdomyolysis Qualifiers: Rhabdomyolysis type: traumatic Encounter type: initial encounter Qualified Code(s): T79.6XXA - Traumatic ischemia of muscle, initial encounter Fall Qualifiers: Encounter type: initial encounter Qualified Code(s): W19.XXXA - Unspecified fall, initial encounter
[2025-05-09] MEDS: OPTIRAY 320 100ml IV ONE (11:49)
[2025-05-09 11:57] LABS: Hematocrit (blood only) 45.1 % (37.0-47.0); Hemoglobin 14.3 g/dl (12.0-16.0); Immature Granulocytes # (auto) 0.02 K/uL (0.01-0.20); Immature Granulocytes % (auto) 0.3 %; Mean Corpuscular Hemoglobin 28.1 pg (25.0-34.0); Mean Corpuscular Volume 88.8 fL (80.0-100.0); Platelet Count 209 K/uL (130-400); RDW Standard Deviation 48.3 fL (36.4-46.3); Red Blood Count 5.08 M/uL (4.20-5.40); White Blood Count 7.43 K/ul (4.8-10.8)
[2025-05-09 12:15] LABS: Anion Gap 6 (3-11); Blood Urea Nitrogen 22 mg/dl (6-23); Calcium 9.5 mg/dl (8.6-10.3); Carbon Dioxide 31 mmol/L (21-32); Chloride 110 mmol/L (98-107); Glucose 107 mg/dl (70-99(Fasting)); Potassium 4.1 mmol/L (3.5-5.1); Sodium 147 mmol/L (136-145)
--- NOTE | 2025-05-09 12:19 | XRay Report ---
Clinical History: Trauma 1 view of the pelvis is submitted for review. Findings: No fracture or dislocation is seen. There is mild bilateral hip osteoarthritis. No other osseous abnormality is identified. There are no radiopaque foreign bodies. Impression: Mild bilateral hip osteoarthritis Electronically signed by Erasto Lujan 05-09-2025 12:19 PM
[2025-05-09 12:21] LABS: iSTAT Art Bld Gas Base Excess 2.0 meg/L (-9-1.8); iSTAT Art Bld Gas pCO2 Correct 46 mmHg (35-46); iSTAT Art Bld Gas pH Corrected 7.375 (7.35-7.45); iSTAT Arterial Blood Gas pO2 C 83
--- NOTE | 2025-05-09 12:21 | XRay Report ---
Clinical History: Trauma Technique: A frontal view of the chest was obtained Comparison is made to the prior examination dated 06/15/2022 Findings: There are no definite pulmonary infiltrates. The heart size is at the upper limit of normal. No pleural effusion or pneumothorax is seen. There is no definite pulmonary nodule. No fracture is noted. There is a suspected large hiatal hernia Impression: Large hiatal hernia Electronically signed by Erasto Lujan 05-09-2025 12:20 PM
--- NOTE | 2025-05-09 12:22 | CT Scan Report ---
Clinical History: Trauma Technique: Axial computed tomography images were obtained of the brain from the vertex to the skull base without intravenous contrast. Findings: There is no sign of intracranial hemorrhage. There is normal perez-white matter differentiation with no sign of acute or old infarction. No midline shift or other form of herniation is identified. There is no hydrocephalus. No obvious mass lesion is seen on this noncontrast examination. The visualized portions of the orbits and paranasal sinuses appear unremarkable. The mastoid air cells appear clear Impression: Unremarkable noncontrast CT of the brain Electronically signed by Erasto Lujan 05-09-2025 12:22 PM
--- NOTE | 2025-05-09 12:24 | CT Scan Report ---
Clinical history: Trauma Technique: Axial computed tomography images were obtained of the thoracic spine after the administration of intravenous contrast. Sagittal and coronal reconstructions were obtained Comparison is made to the prior CT 01/04/2021 Findings: No fracture is identified. There is scoliosis. No listhesis is seen. No focal osseous lesion is evident. There is no definite sign of osteomyelitis No definite disc herniation is seen at any level. There is no apparent spinal stenosis or definite nerve root compression The stimulator leads previously seen within the spinal canal have been removed Impression: 1. Scoliosis 2. Otherwise unremarkable CT of the thoracic spine Electronically signed by Erasto Lujan 05-09-2025 12:24 PM
[2025-05-09 12:26] LABS: Partial Thromboplastin Time 37 Seconds (21-31); Prothrombin Time 53.7 Seconds (9.0-12.0)
--- NOTE | 2025-05-09 12:30 | CT Scan Report ---
Clinical history: Injury Technique: Axial computed tomography images were obtained of the lumbar spine after the administration of intravenous contrast. Sagittal and coronal reconstructions were obtained Comparison is made to the prior CT dated 10/15/2015 Findings: No fracture is identified. No listhesis is seen. No focal osseous lesion is evident. There is no definite sign of osteomyelitis There is an L5 laminectomy defect. No spinal fusion is seen At L1-2, no disc herniation is identified. There is no spinal stenosis. The neural foramen are patent At L2-3, there is a minimal disc bulge. There is no spinal stenosis. The neural foramen are patent At L3-4, there is a disc bulge without spinal stenosis. There is mild right greater than left neural foramen narrowing At L4-5, there is mild spinal stenosis due to a disc bulge and a right paracentral disc protrusion that may compress the right L5 nerve root. There is mild bilateral neural foramen narrowing At L5-S1, there is a disc bulge and a central disc herniation without significant spinal stenosis. There is mild bilateral neural foramen narrowing Impression: 1. No definite lumbar spine fracture 2. Mild spinal stenosis at L4-5 with a suspected disc protrusion that may compress the right L5 nerve root Electronically signed by Erasto Lujan 05-09-2025 12:29 PM
[2025-05-09 12:33] LABS: INR 5.8 (0.9-1.1)
[2025-05-09 12:34] LABS: Alanine Aminotransferase 29 U/L (7-52); Albumin Globulin Ratio 1.5 (0.9-2); Albumin Level 4.1 gm/dl (3.4-5.0); Alkaline Phosphatase 77 U/L (34-104); Bilirubin,Total 0.4 mg/dl (0.2-1.0); Creatine Kinase 2736 U/L (26-192); Globulin 2.8 gm/dl (2.5-4.0); Lipase 8 U/L (11-82); Total Protein 6.9 gm/dl (6.0-8.3)
--- NOTE | 2025-05-09 12:34 | CT Scan Report ---
Clinical history: Injury Technique: Axial computed tomography images were obtained of the cervical spine without intravenous contrast. Sagittal and coronal reconstructions were obtained Findings: No fracture is identified. No listhesis is seen. No focal osseous lesion is evident. There is atlantoaxial osteoarthritis At C2-3, no disc herniation is identified. There is no spinal stenosis. The neural foramen are patent At C3-4, no disc herniation is identified. There is no spinal stenosis. The neural foramen are patent At C4-5, there is a disc bulge without spinal stenosis. The neural foramen are patent At C5-6, there is a disc bulge without spinal stenosis. There is mild left neural foramen narrowing At C6-7, there is a mild disc bulge. There is no spinal stenosis. The neural foramen are patent At C7-T1,no disc herniation is identified. There is no spinal stenosis. The neural foramen are patent The lung apices appear clear. The visualized soft tissues of the neck appear unremarkable. No foreign body is seen Impression: Unremarkable CT of the cervical spine Electronically signed by Erasto Lujan 05-09-2025 12:33 PM
[2025-05-09 12:36] LABS: Appearance Urine Clear (Clear); Bacteria Urine Automated 3+ (None Seen); Cast Urine Automated 0-2 /lpf (0-2); Epithelial Cell Urine Auto 0-2 /hpf (0-2); Glucose Urine UA Negative (Negative); RBC Urine Automated 0-2 /hpf (0-2); WBC Urine Automated 0-5 /hpf (0-5)
--- NOTE | 2025-05-09 12:36 | CT Scan Report ---
Clinical history: Trauma Technique: Axial computed tomography images were obtained of the chest after the administration of intravenous contrast Comparison is made to the prior CT dated 05/06/2021 Findings: There is bilateral lung base atelectasis. The lungs otherwise appear clear without infiltrate or mass. There is no pleural effusion or pneumothorax. There is no sign of pulmonary fibrosis or other diffuse interstitial process. No endobronchial lesion is seen There is no mediastinal, hilar, or axillary adenopathy. The thoracic aorta appears unremarkable with no sign of aneurysm or dissection. There is no pericardial effusion. There is coronary atherosclerosis No fracture is seen. No focal osseous lesion is evident Impression: Bilateral lower lobe atelectasis Electronically signed by Erasto Lujan 05-09-2025 12:36 PM
--- NOTE | 2025-05-09 12:41 | CT Scan Report ---
Clinical History: Trauma Technique: Axial computed tomography images were obtained of the abdomen and pelvis after the administration of intravenous and oral contrast. Comparison is made to the prior CT dated 04/03/2021. Findings: The liver is overall of normal size, attenuation, and contour with no sign of cirrhosis or significant fatty infiltration. There are new foci of calcification within a low-attenuation lesion in the right hepatic lobe posterior segment. This measures approximately 3 cm in size, previously 3.6 cm. There is an unchanged 1.4 cm cyst in the right hepatic lobe. The portal vein is patent. The gallbladder appears unremarkable. No bile duct dilatation is noted. The spleen is of normal size. No focal splenic lesion is evident. The pancreas appears normal with no sign of acute or chronic pancreatitis and no mass lesion noted. The pancreatic duct is of normal caliber. The adrenal glands appear unremarkable. No definite renal or proximal ureteral calculi are seen on this contrast-enhanced study. There is no hydronephrosis or perinephric stranding. No renal mass lesion is identified. There are bilateral renal peripelvic cysts The abdominal aorta is of normal caliber. No abdominal adenopathy is seen. There is a large hiatal hernia. There is no sign of small bowel obstruction. There is mild diverticulosis without evidence of diverticulitis. No free intraperitoneal fluid or air is identified. No distal ureteral or bladder calculi are seen. No bladder mass lesion is evident. The iliac arteries are of normal caliber. No pelvic adenopathy is noted. There are small bilateral inguinal hernias containing only fat No fracture is identified. No focal osseous lesion is seen Impression: 1. No definite sign of abdominal organ injury after trauma 2. New foci of calcification within a right hepatic lobe lesion, which is slightly decreased in size. This could represent a complex cyst or possibly a treated malignancy. Clinical correlation is recommended 3. Hepatic and bilateral renal cysts 4. Large hiatal hernia 5. Mild diverticulosis without evidence of diverticulitis 6. Small bilateral inguinal hernias containing only fat Electronically signed by Erasto Lujan 05-09-2025 12:41 PM
[2025-05-09] MEDS: SODIUM CHLORIDE 0.9% 1,000 ML IV ONE (12:50)
[2025-05-09] MEDS: ACETAMINOPHEN 1,000 MG/100 ML VIAL IV STA (12:50)
[2025-05-09] MEDS: CLINDAMYCIN/D5W 900 MG/50 ML BAG IV ONE (12:53)
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
[2025-05-09] MEDS: SODIUM CHLORIDE 0.9% 1,000 ML IV SCH (14:12)
[2025-05-09] MEDS: LACTATED RINGER'S 1,000 ML IV ONE (14:20)
[2025-05-09] MEDS: LACTATED RINGER'S 1,000 ML IV SCH (15:12)
[2025-05-09] MEDS ORDERED: POLYETHYLENE (MIRALAX) 17 GM PACK PO PRN (16:57)
[2025-05-09] MEDS: ACETAMINOPHEN 325 MG TAB PO PRN (18:04)
--- NOTE | 2025-05-09 18:09 | XRay Report ---
Exam: Left ankle. Reason for exam: Unwitnessed fall. Left navicular pain left foot and ankle pain. Previous studies: None FINDINGS: No acute fracture, dislocation or destructive bony process is evident. IMPRESSION: Negative for acute bony trauma. Electronically signed by Ramón Barlow 05-09-2025 6:08 PM
--- NOTE | 2025-05-09 18:11 | XRay Report ---
Exam: X-ray left foot. Reason for exam: Unwitnessed fall. Left foot and ankle pain. Previous studies: 09/21/2017. Deformity from old fracture of the fifth metatarsal is stable. No acute fracture, dislocation or destructive bony process is evident. Lisfranc joints appear intact. IMPRESSION: 1. Negative for acute bony trauma. 2. Stable deformity from old fracture of the fifth metatarsal. Electronically signed by Ramón Barlow 05-09-2025 6:10 PM
[2025-05-09] MEDS: ONDANSETRON INJ 2 MG/ML 2 ML VIAL IV PRN (19:25)
[2025-05-10] MEDS: GABAPENTIN 400 MG CAP PO SCH (08:37)
[2025-05-10] MEDS: PANTOprazole 40 MG/10 ML SYR IV SCH (08:38)
[2025-05-10] MEDS: LIDOCAINE 5% 1 PATCH TD SCH (08:38)
[2025-05-10 08:47] LABS: Hematocrit (blood only) 42.1 % (37.0-47.0); Hemoglobin 13.4 g/dl (12.0-16.0); Immature Granulocytes # (auto) 0.01 K/uL (0.01-0.20); Immature Granulocytes % (auto) 0.2 %; Mean Corpuscular Hemoglobin 28.1 pg (25.0-34.0); Mean Corpuscular Volume 88.3 fL (80.0-100.0); Platelet Count 197 K/uL (130-400); RDW Standard Deviation 48.0 fL (36.4-46.3); Red Blood Count 4.77 M/uL (4.20-5.40); White Blood Count 5.58 K/ul (4.8-10.8)
[2025-05-10 09:04] LABS: Alanine Aminotransferase 28 U/L (7-52); Albumin Globulin Ratio 1.6 (0.9-2); Albumin Level 3.6 gm/dl (3.4-5.0); Alkaline Phosphatase 70 U/L (34-104); Anion Gap 7 (3-11); Bilirubin,Total 0.5 mg/dl (0.2-1.0); Blood Urea Nitrogen 11 mg/dl (6-23); Calcium 8.8 mg/dl (8.6-10.3); Carbon Dioxide 28 mmol/L (21-32); Chloride 110 mmol/L (98-107); Creatine Kinase 1664 U/L (26-192); Globulin 2.3 gm/dl (2.5-4.0); Glucose 106 mg/dl (70-99(Fasting)); Potassium 3.7 mmol/L (3.5-5.1); Sodium 145 mmol/L (136-145); Total Protein 5.9 gm/dl (6.0-8.3)
[2025-05-10 09:47] LABS: Prothrombin Time > 90.0 Seconds (9.0-12.0)
[2025-05-10 09:56] LABS: INR > 9.5 (0.9-1.1)
[2025-05-10] MEDS: PHYTONADIONE 5 MG TAB PO STA (10:42)
--- NOTE | 2025-05-10 10:52 | Hospitalist Progress Note ---
Date of Service May 10, 2025 Assessment & Plan (1) AMS (altered mental status): Plan: 64-year-old female with history of PE, chronic back pain, GERD/hiatal hernia, hypertension, multiple antibiotic allergies who presented with lethargy and confusion of 1 day Confusion, altered mental status. Suspect toxic encephalopathy Patient confused in the afternoon 05/09, she was reportedly going to take her evening meds and then come to bed but was subsequently found down and minimally responsive in the evening following this with no improvement overnight was brought in by EMS bradycardic and altered Mentation greatly improved and nearing but not yet at baseline 05/10. Her orientation is normal although still seems with some forgetfulness and a often tangential rarely circumferential thought process She denies taking extra dose of her medications, but has no memory of events preceding admission. Was confused and was going to take evening meds shortly before becoming unresponsive. Suspect there is a high possibility that her presentation was caused by accidental additional doses and toxic encephalopathy. Initial confusion may have led to her taking extra evening doses of her medications. Additional doses of baclofen/oxycodone would correlate with her altered mentation, extra doses of metoprolol would correlate with her transient bradycardia, next dose of her warfarin would correlate with her rapidly upt rending INR. She denies intentional overdose/SI. Gabapentin has been resumed. She is high risk for opioid withdrawal due to chronic longstanding pain and requirements however most be cautious with resuming these given suspected toxic cephalopathy. She is displaying signs of hyperesthesia but she is not tachycardic. If mentation is normal and she is showing signs of withdrawal this afternoon can restart reduced dose of oxycodone 5 mg every 4 hours at that time, hold for any altered mental status. If still doing well then dose reduce baclofen and dose adjust medications as needed. did report that she has periods of confusion around her medications normally so suspect that she would benefit from dose adjustments regardless of whether her acute presentation was from extra doses. She denies intentional overdose/SI CThead without evidence of stroke or cerebral edema MRI limited by collateral regarding her spinal spine stimulator explantation. This may not be available until 05/11 Fall, prolonged downtime, confusion Fall approximately 10 PM on 05/08/2025 CThead, CTC-spine, CTT-spine, pelvis x-ray, CTlumbar spine reviewed. No acute fracture. Mild spinal stenosis with suspected disc protrusion which may cause L5 nerve root compression was noted. CTA/P: No evidence of solid organ injury. Right hepatic lobe lesion decreased in size from prior interval noted. Mild diverticulosis. Inguinal hernias noted. CTchest: No acute fracture. Bibasilar lower lobe atelectasis, no other acute findings. No pneumothorax EKG: CK 2736 consistent with rhabdo and prolonged downtime Lactate 1.4, creatinine is normal Slightly elevated BUN/creatinine ratio and appears volume contracted. Hyponatremic at 147 Ammonia is normal Troponin normal VBG pH 7.38/pCO2 normal 46/HCO3 27 L Foot Pain - No evidence of fracture on x-ray Rhabdomyolysis Patient was down for at least 12 hours CK elevated on admission, downtrending 1664 on 05/10. Continue IVF History of PE, supratherapeutic INR On Coumadin S/p colonoscopy 02/2025 for screening, no bleeding. Normal ileum, diverticula noted, internal hemorrhoids, small, 1 mm polyp resected and tolerated well. INR supratherapeuticAt 5.8 on admission. She did not show any clinical signs of bleeding. Warfarin was held. On repeat she is uptrending greater than 9.5, continues without clinical bleed. Oral vitamin K 5 mg was given. She does not have focal neurologic deficits and mentation is improving. No ICH was seen on initial CT. Follow INR daily, once INR is less than 2 would start heparin versus Lovenox for bridging and restart Coumadin until stable back to goal of 23 She has a family history of factor V Leiden, any personal history of PE is at high risk of VTE History of GERD/hiatal hernia Pending barium swallow as outpatient, was pending [facility] for second opinion PPI continued No nausea/vomiting/regurgitation. Soft bite-size texture continued. If she does recurrent dysphagia or difficulty swallowing --> barium swallow. No obvious esophageal dilation/impacted contents on CT History of asthma, RLD No wheezing on exam CTA chest clear No acute exacerbation on admission Hypertension Metoprolol held due to bradycardia and suspected toxic encephalopathy. Prediabetes BSG [id number] on admit Trend BSG Chronic back pain History of T10-T11 spinal cord stimulator placement/removal at [facility] Patient is a poor historian, but denies new pain in her back at bedside. She is confused during assessment CTspine as noted above. 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 Mentation is vastly improved today. She is oriented to month, year, name, place, and [facility]. She answers questions in full sentence appropriately. She does endorse she continues to have chronic pain in her low back. She endorses general sensitivity to touch overlying her skin "all over ". She denies any new pain/focal pain. She notes that her abdomen also was very tender as she has a history of a hiatal hernia. She is not currently nauseous She does not remember events in the emergency department. She reports last thing she remembers is going to the campground in the [facility], and then has very little memory until very early this morning. She does not remember taking extra doses of her medications, does not remember the last time she took her medications. She reports that she has not taken any extra doses of either her pain medicine or any other medications to her knowledge. Physical Exam Physical Exam: General: Alert and oriented x 3, answers questions appropriately, follows command HEENT: Atraumatic, normocephalic. Mucous membranes extremely dry. Some scattered bites overlying forehead. No facial asymmetry. Tongue protrudes midline although patient with difficulty doing this due to dry mouth/tongue. Vision and hearing grossly intact. Pupils equal and reactive to light, they are not pinprick. Pulm: CTAB A&P. -wheezes, -rales, -rhonchi. Symmetrical chest rise. No increased work of breathing. No respiratory distress. Cardiac: RRR, -mrg. Radial pulses intact and symmetrical. Abdominal: Nontender, nondistended, soft. BS present. Small abrasion of the left lower quadrant Extremities: Laying slightly flexed on her left side. Umbrella Repairer strength, ankle dorsiflexion 5/5 bilaterally. Endorses generalized tenderness overlying her back and her arms. Some focal tenderness of her mid lumbar back which she reports is chronic. There is an overlying lidocaine patch, skin underneath this is without any evidence of rash/erythema or allergic reaction Results & Data Results & Data Vital Signs (Past 12 Hours) Vital Signs Temp Pulse Resp BP Pulse Ox O2 Del Method 05/10/25 07:24 36.8 C 66 18 158/71 H 98 Room Air 05/10/25 02:37 36.6 C 78 18 167/70 H 97 Room Air PG Care Time/CCT Total # of Minutes Spent Total Time Spent with Patient: Total time spent is greater than 50% in coordination of care (as documented) at patient's floor/unit and/or counseling patient: Coding Level of Care Code 01085 SUB INP/OBS CARE 3/50MIN Diagnoses AMS (altered mental status) R41.82 Bradycardia R00.1 GERD (gastroesophageal reflux disease) K21.9 Hiatal hernia K44.9 Liver lesion K76.9 UTI (urinary tract infection) N39.0 Hematuria presence: without hematuria Urinary tract infection type: site unspecified (6) UTI (urinary tract infection) Hematuria presence: without hematuria Urinary tract infection type: site unspecified Qualified Code(s): N39.0 - Urinary tract infection, site not specified
[2025-05-10] MEDS: BACLOFEN 10 MG TAB PO SCH (13:54)
[2025-05-10] MEDS: REMOVE LIDODERM PATCH SCH (20:12)
[2025-05-11 07:04] LABS: Hematocrit (blood only) 39.7 % (37.0-47.0); Hemoglobin 13.4 g/dl (12.0-16.0); Immature Granulocytes # (auto) 0.01 K/uL (0.01-0.20); Immature Granulocytes % (auto) 0.2 %; Mean Corpuscular Hemoglobin 29.5 pg (25.0-34.0); Mean Corpuscular Volume 87.4 fL (80.0-100.0); Platelet Count 182 K/uL (130-400); RDW Standard Deviation 47.6 fL (36.4-46.3); Red Blood Count 4.54 M/uL (4.20-5.40); White Blood Count 6.59 K/ul (4.8-10.8)
[2025-05-11 07:27] LABS: Alanine Aminotransferase 24 U/L (7-52); Albumin Globulin Ratio 1.7 (0.9-2); Albumin Level 3.5 gm/dl (3.4-5.0); Alkaline Phosphatase 63 U/L (34-104); Anion Gap 7 (3-11); Bilirubin,Total 0.8 mg/dl (0.2-1.0); Blood Urea Nitrogen 8 mg/dl (6-23); Calcium 8.6 mg/dl (8.6-10.3); Carbon Dioxide 27 mmol/L (21-32); Chloride 108 mmol/L (98-107); Globulin 2.1 gm/dl (2.5-4.0); Glucose 100 mg/dl (70-99(Fasting)); Potassium 3.6 mmol/L (3.5-5.1); Sodium 142 mmol/L (136-145); Total Protein 5.6 gm/dl (6.0-8.3)
[2025-05-11 07:31] LABS: INR 3.0 (0.9-1.1); Prothrombin Time 29.8 Seconds (9.0-12.0)
--- NOTE | 2025-05-11 08:39 | Magnetic Resonance Report ---
EXAM: MR brain wo con CLINICAL HISTORY: AMS, R/O stroke. TECHNIQUE: MRI of the brain was performed without contrast, with multiplanar sequences obtained. COMPARISON: CT head on 05/09/2025. FINDINGS: Brain Parenchyma: A few tiny T2WI hyperintense foci are noted in the right subcortical white matter and periventricular ventricles. There is no evidence of acute infarction or hemorrhage. There is normal perez-white matter differentiation. No mass lesions are identified. Ventricles and Sulci: There is normal size and configuration of the lateral ventricles, third ventricle, and fourth ventricle. There is no evidence of hydrocephalus or ventriculomegaly. The Sylvian fissures, sulci, and cisterns are within normal limits. Posterior Fossa: The cerebellum and brainstem appear normal without evidence of mass lesions or signal abnormalities. Cranial Nerves: There is normal course and appearance of cranial nerves identified. Vessels: There is no evidence of vascular malformations or aneurysms. The intracranial arteries and veins appear normal without evidence of stenosis or occlusion. Orbits and Skull Base: The orbits and skull base structures are normal without evidence of abnormalities. IMPRESSION: 1. There is no evidence of acute infarction or hemorrhage. 2. A few tiny T2WI hyperintense foci in the right subcortical white matter and periventricular ventricles, likely due to chronic microvascular disease. 3. There are no gross interval changes in comparison with CT head on 05/09/2025. Electronically signed by Elvis Hwang 05-11-2025 08:38 AM
[2025-05-11] MEDS: LOSARTAN POTASSIUM 25 MG TAB PO SCH (08:51)
--- NOTE | 2025-05-11 09:42 | Hospitalist Progress Note ---
Date of Service May 11, 2025 Assessment & Plan (1) Rhabdomyolysis: Plan: Mild. Most likely from her falling and being down on the floor for a while. CK was 2700 on admission. Continue IV fluids. Serial CK levels (2) AMS (altered mental status): Plan: Suspected acute toxic encephalopathy due to medications present on admission. Now resolved. Supportive care. (3) Coumadin toxicity: Plan: INR david to a high of 9.5. She was given oral vitamin K and INR is 3.0 today, May 11. Continue to hold Coumadin. Serial INR measurements. No current active bleeding (4) Bradycardia: Plan: Present on admission. Now resolved. Metoprolol has been restarted. Continue telemetry (5) GERD (gastroesophageal reflux disease): Plan: Stable. Continue PPI therapy (6) UTI (urinary tract infection): Plan: Ruled out (7) Hypertension: Plan: Metoprolol and losartan have been restarted. IV hydralazine as needed Plan OT and PT assessments have been requested. However, she flatly refuses to consider rehab placement. Hopeful discharge to home within the next day or 2 with home health services Admission and Anticipated Discharge Date Admission Date: May 09, 2025 Subjective Awake and alert. No distress. Nursing states her mental status has improved considerably since admission. She flatly refuses to consider rehab placement. OT and PT assessments ordered. Metoprolol XL and losartan have been restarted. Blood pressure is running on the high side and IV hydralazine will be administered on a as needed basis. Repeat CK level pending. INR is down to 3.0 after oral vitamin K given. Will continue to hold Coumadin and monitor daily INR levels Review of Systems 2 Review of Systems: Constitutionalno fever or chills ENTno blurred vision, no double vision, no epistaxis, no sore throat Respiratoryno cough, no wheezing, no shortness of breath Cardiacno palpitations, no chest pain, no syncope Armaan nausea, vomiting, diarrhea, melena, hematochezia GUno urinary retention, no urinary incontinence, no dysuria, no hematuria Musculoskeletalno joint pain, no muscle tenderness Skinno bruising, no rashes, no pruritus Neurono isolated weakness, no paresthesia. Generalized weakness Psychflat affect Physical Exam 2 Physical Exam: General-alert and oriented x3, no fever, no chills HEENT-head atraumatic and normocephalic, pupils equal and reactive to light, extraocular muscles intact Neck-no lymphadenopathy or thyromegaly, trachea midline Chest-clear to auscultation. No rales, wheezing or rhonchi Cardiac-regular rate and rhythm, normal S1 and S2 Abdomen-normal bowel sounds, no hepatosplenomegaly Extremities-no cyanosis, clubbing, or edema Neuro-cranial nerves II through XII intact, motor and sensory function within normal limits, strength symmetrical with generalized weakness, no focal deficits Psych-flat affect Results & Data Results & Data Vital Signs (Past 12 Hours) Vital Signs Temp Pulse Pulse Resp BP Pulse Ox O2 Del Method 05/11/25 09:20 165/95 H 05/11/25 07:49 36.5 C 76 20 184/95 H 95 Room Air 05/11/25 04:00 182/89 H 05/11/25 03:30 193/90 H 05/11/25 03:00 36.6 C 75 18 202/93 H 94 Room Air 05/10/25 23:30 170/90 H 05/10/25 22:30 36.5 C 78 18 188/95 H 95 Room Air 05/10/25 22:02 75 Laboratory Results 05/11/25 05:58 05/11/25 05:58 PG Care Time/CCT Total # of Minutes Spent Total Time Spent with Patient: Total time spent is greater than 50% in coordination of care (as documented) at patient's floor/unit and/or counseling patient: Coding Level of Care Code 67606 SUB INP/OBS CARE 3/50MIN Diagnoses Rhabdomyolysis T79.6XXA Encounter type: initial encounter Rhabdomyolysis type: traumatic AMS (altered mental status) R41.82 Coumadin toxicity T45.511A Bradycardia R00.1 GERD (gastroesophageal reflux disease) K21.9 UTI (urinary tract infection) N39.0 Hematuria presence: without hematuria Urinary tract infection type: site unspecified Hypertension I10 (1) Rhabdomyolysis Encounter type: initial encounter Rhabdomyolysis type: traumatic Qualified Code(s): T79.6XXA - Traumatic ischemia of muscle, initial encounter (6) UTI (urinary tract infection) Hematuria presence: without hematuria Urinary tract infection type: site unspecified Qualified Code(s): N39.0 - Urinary tract infection, site not specified
[2025-05-11] MEDS: METOPROLOL TARTRATE 1 MG/ML VIAL IV STA (12:33)
[2025-05-11] MEDS: METOPROLOL TARTRATE 1 MG/ML VIAL IV ONE (12:43)
--- NOTE | 2025-05-11 13:44 | Electrocardiogram Report ---
Test Reason : Blood Pressure : */* mmHG Vent. Rate : 83 BPM Atrial Rate : 83 BPM P-R Int : 140 ms QRS Dur : 76 ms QT Int : 374 ms P-R-T Axes : 53 0 22 degrees QTcB Int : 439 ms Sinus rhythm with Premature supraventricular complexes Nonspecific ST and T wave abnormality Abnormal ECG When compared with ECG of 05-Mar-2025 23:07, Premature supraventricular complexes are now Present Nonspecific T wave abnormality now evident in Lateral leads Confirmed by Edilson Broussard ([id number]) on 05/11/2025 1:44:28 PM Referred By: REFERRED SELF Confirmed By: Edilson Broussard
[2025-05-11] MEDS: METOPROLOL SUCC 50MG EXT REL TAB PO SCH (17:47)
[2025-05-11] MEDS ORDERED: Nursing to Pharmacy Communication SCH (18:00)
[2025-05-11] MEDS ORDERED: METOPROLOL TARTRATE 1 MG/ML VIAL IV PRN (18:57)
[2025-05-11] MEDS: MELATONIN 3 MG TAB PO PRN (23:51)
[2025-05-12 06:43] LABS: Hematocrit (blood only) 41.4 % (37.0-47.0); Hemoglobin 13.4 g/dl (12.0-16.0); Immature Granulocytes # (auto) 0.02 K/uL (0.01-0.20); Immature Granulocytes % (auto) 0.3 %; Mean Corpuscular Hemoglobin 29.2 pg (25.0-34.0); Mean Corpuscular Volume 90.2 fL (80.0-100.0); Platelet Count 157 K/uL (130-400); RDW Standard Deviation 50.0 fL (36.4-46.3); Red Blood Count 4.59 M/uL (4.20-5.40); White Blood Count 6.91 K/ul (4.8-10.8)
[2025-05-12 07:06] LABS: Alanine Aminotransferase 19.0 U/L (7-52); Albumin Globulin Ratio 1.7 (0.9-2); Albumin Level 3.4 gm/dl (3.4-5.0); Alkaline Phosphatase 55.0 U/L (34-104); Anion Gap 7.0 (3-11); Bilirubin,Total 0.9 mg/dl (0.2-1.0); Blood Urea Nitrogen 10.0 mg/dl (6-23); Calcium 8.6 mg/dl (8.6-10.3); Carbon Dioxide 26.0 mmol/L (21-32); Chloride 108.0 mmol/L (98-107); Creatinine Clr Calc Pharmacy 92.1 ml/min; Globulin 2.0 gm/dl (2.5-4.0); Glucose 122.0 mg/dl (70-99(Fasting)); Potassium 3.9 mmol/L (3.5-5.1); Sodium 141.0 mmol/L (136-145); Total Protein 5.4 gm/dl (6.0-8.3)
[2025-05-12 07:35] LABS: INR 1.6 (0.9-1.1); Prothrombin Time 16.7 Seconds (9.0-12.0)
[2025-05-12 07:55] LABS: Creatine Kinase 585.0 U/L (26-192)
[2025-05-12] MEDS: FLUTICASONE PROPIONATE NA SPR 16 GM BTL SCH (07:56)
--- NOTE | 2025-05-12 14:23 | Hospitalist Progress Note ---
Date of Service May 12, 2025 Assessment & Plan (1) Rhabdomyolysis: Plan: Mild. Most likely from her falling and being down on the floor for a while. CK was 2700 on admission. Now down to 585. Treated with IV fluids. (2) AMS (altered mental status): Plan: Suspected acute toxic encephalopathy due to medications present on admission. Now resolved. Supportive care. (3) Coumadin toxicity: Plan: INR david to a high of 9.5. She was given oral vitamin K and INR is 1.6 today, May 12. Coumadin has now been reordered. Serial INR measurements. No current active bleeding (4) Bradycardia: Plan: Present on admission. Now resolved. Metoprolol has been restarted. Continue telemetry (5) GERD (gastroesophageal reflux disease): Plan: Stable. Continue PPI therapy (6) UTI (urinary tract infection): Plan: Ruled out (7) Hypertension: Plan: Amlodipine added today, May 12, for better blood pressure control. Metoprolol and losartan have already been restarted. IV hydralazine as needed Plan Anticipate discharge to [facility] when arrangements are finalized. Hopefully within the next day or 2 Admission and Anticipated Discharge Date Admission Date: May 09, 2025 Subjective Awake and alert. She was sitting in a chair eating lunch at the time of my rounds. Amlodipine has been started for better blood pressure control. INR is down to 1.6 and Coumadin has been restarted. Will remove Mcgarry catheter today, May 12. She is stable for discharge to [facility] when arrangements are finalized Review of Systems 2 Review of Systems: Constitutionalno fever or chills ENTno blurred vision, no double vision, no epistaxis, no sore throat Respiratoryno cough, no wheezing, no shortness of breath Cardiacno palpitations, no chest pain, no syncope Armaan nausea, vomiting, diarrhea, melena, hematochezia GUno urinary retention, no urinary incontinence, no dysuria, no hematuria Musculoskeletalno joint pain, no muscle tenderness Skinno bruising, no rashes, no pruritus Neurono isolated weakness, no paresthesia. Generalized weakness Psychflat affect Physical Exam 2 Physical Exam: General-alert and oriented x3, no fever, no chills HEENT-head atraumatic and normocephalic, pupils equal and reactive to light, extraocular muscles intact Neck-no lymphadenopathy or thyromegaly, trachea midline Chest-clear to auscultation. No rales, wheezing or rhonchi Cardiac-regular rate and rhythm, normal S1 and S2 Abdomen-normal bowel sounds, no hepatosplenomegaly Extremities-no cyanosis, clubbing, or edema Neuro-cranial nerves II through XII intact, motor and sensory function within normal limits, strength symmetrical with generalized weakness, no focal deficits Psych-flat affect Results & Data Results & Data Vital Signs (Past 12 Hours) Vital Signs Temp Pulse Pulse Resp BP Pulse Ox O2 Del Method 05/12/25 11:56 36.7 C 90 18 145/79 H 96 Room Air 05/12/25 09:28 74 05/12/25 08:04 36.7 C 84 18 161/86 H 94 Room Air 05/12/25 03:54 36.8 C 81 18 170/103 H 96 Room Air Laboratory Results 05/12/25 06:05 05/12/25 06:05 PG Care Time/CCT Total # of Minutes Spent Total Time Spent with Patient: Total time spent is greater than 50% in coordination of care (as documented) at patient's floor/unit and/or counseling patient: Coding Level of Care Code 06961 SUB INP/OBS CARE 3/50MIN Diagnoses Rhabdomyolysis T79.6XXA Encounter type: initial encounter Rhabdomyolysis type: traumatic AMS (altered mental status) R41.82 Coumadin toxicity T45.511A Bradycardia R00.1 GERD (gastroesophageal reflux disease) K21.9 UTI (urinary tract infection) N39.0 Hematuria presence: without hematuria Urinary tract infection type: site unspecified Hypertension I10 (1) Rhabdomyolysis Encounter type: initial encounter Rhabdomyolysis type: traumatic Qualified Code(s): T79.6XXA - Traumatic ischemia of muscle, initial encounter (6) UTI (urinary tract infection) Hematuria presence: without hematuria Urinary tract infection type: site unspecified Qualified Code(s): N39.0 - Urinary tract infection, site not specified
[2025-05-12] MEDS: WARFARIN SOD 5 MG TAB PO SCH (15:54)
[2025-05-13 06:45] LABS: Hematocrit (blood only) 40.5 % (37.0-47.0); Hemoglobin 13.6 g/dl (12.0-16.0); Immature Granulocytes # (auto) 0.01 K/uL (0.01-0.20); Immature Granulocytes % (auto) 0.2 %; Mean Corpuscular Hemoglobin 29.2 pg (25.0-34.0); Mean Corpuscular Volume 87.1 fL (80.0-100.0); Platelet Count 179 K/uL (130-400); RDW Standard Deviation 47.5 fL (36.4-46.3); Red Blood Count 4.65 M/uL (4.20-5.40); White Blood Count 6.34 K/ul (4.8-10.8)
[2025-05-13 07:09] LABS: INR 1.2 (0.9-1.1); Prothrombin Time 13.1 Seconds (9.0-12.0)
[2025-05-13 07:14] LABS: Alanine Aminotransferase 23.0 U/L (7-52); Albumin Level 3.8 gm/dl (3.4-5.0); Alkaline Phosphatase 56.0 U/L (34-104); Anion Gap 7.0 (3-11); Blood Urea Nitrogen 15.0 mg/dl (6-23); Calcium 8.8 mg/dl (8.6-10.3); Carbon Dioxide 26.0 mmol/L (21-32); Chloride 107.0 mmol/L (98-107); Creatine Kinase 573.0 U/L (26-192); Creatinine Clr Calc Pharmacy 91.9 ml/min; Glucose 108.0 mg/dl (70-99(Fasting)); Potassium 4.2 mmol/L (3.5-5.1); Sodium 140.0 mmol/L (136-145)
[2025-05-13 07:25] LABS: Albumin Globulin Ratio 1.7 (0.9-2); Bilirubin,Total 0.9 mg/dl (0.2-1.0); Globulin 2.3 gm/dl (2.5-4.0); Total Protein 6.1 gm/dl (6.0-8.3)
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
[2025-05-13] MEDS: NYSTATIN POWDER 15GM BTL EXT SCH (12:49)
--- NOTE | 2025-05-13 13:15 | Hospitalist Progress Note ---
Date of Service May 13, 2025 Assessment & Plan (1) Rhabdomyolysis: Plan: Mild. Most likely from her falling and being down on the floor for a while. CK was 2700 on admission. Now normalized. Treated with IV fluids. (2) AMS (altered mental status): Plan: Suspected acute toxic encephalopathy due to medications present on admission. Now resolved. Supportive care. (3) Coumadin toxicity: Plan: INR david to a high of 9.5. She was given oral vitamin K and INR is 1.2 today, May 13. Coumadin has now been reordered. Serial INR measurements. No current active bleeding (4) Bradycardia: Plan: Present on admission. Now resolved. Metoprolol has been restarted. Continue telemetry (5) GERD (gastroesophageal reflux disease): Plan: Stable. Continue PPI therapy (6) UTI (urinary tract infection): Plan: Ruled out (7) Hypertension: Plan: Amlodipine added on May 12 for better blood pressure control. Metoprolol and losartan have already been restarted. IV hydralazine as needed (8) Tinea corporis: Plan: Nystatin powder ordered Plan The patient was seen by psychiatry today, May 13, and she has no suicidal ideations. She will be discharged either to [facility] or [facility] pending insurance authorization . She is medically stable for discharge Admission and Anticipated Discharge Date Admission Date: May 09, 2025 Subjective Alert and oriented. Medically stable. She has been seen by psychiatry and there are no suicidal ideations. Oxybutynin 5 mg 3 times a day has been restarted since she takes that at home. Metoprolol dosage uptitrated today for better heart rate and blood pressure control. Nystatin powder ordered for tinea corporis occurring under both breasts. INR 1.2 today, May 13. Review of Systems 2 Review of Systems: Constitutionalno fever or chills ENTno blurred vision, no double vision, no epistaxis, no sore throat Respiratoryno cough, no wheezing, no shortness of breath Cardiacno palpitations, no chest pain, no syncope Armaan nausea, vomiting, diarrhea, melena, hematochezia GUno urinary retention, no urinary incontinence, no dysuria, no hematuria Musculoskeletalno joint pain, no muscle tenderness Skintinea corporis noted under both breasts Neurono isolated weakness, no paresthesia. Generalized weakness Psychflat affect Physical Exam 2 Physical Exam: General-alert and oriented x3, no fever, no chills HEENT-head atraumatic and normocephalic, pupils equal and reactive to light, extraocular muscles intact Neck-no lymphadenopathy or thyromegaly, trachea midline Chest-clear to auscultation. No rales, wheezing or rhonchi Cardiac-regular rate and rhythm, normal S1 and S2 Abdomen-normal bowel sounds, no hepatosplenomegaly Extremities-no cyanosis, clubbing, or edema Neuro-cranial nerves II through XII intact, motor and sensory function within normal limits, strength symmetrical with generalized weakness, no focal deficits Psych-flat affect Results & Data Results & Data Vital Signs (Past 12 Hours) Vital Signs Temp Pulse Resp BP BP Pulse Ox O2 Del Method 05/13/25 11:08 36.8 C 77 18 143/72 H 94 Room Air 05/13/25 07:47 36.7 C 94 H 18 141/99 H 92 Room Air 05/13/25 03:25 36.8 C 70 16 159/89 H 95 Room Air Laboratory Results 05/13/25 06:25 05/13/25 06:25 PG Care Time/CCT Total # of Minutes Spent Total Time Spent with Patient: Total time spent is greater than 50% in coordination of care (as documented) at patient's floor/unit and/or counseling patient: Coding Level of Care Code 79858 SUB INP/OBS CARE 3/50MIN Diagnoses Rhabdomyolysis T79.6XXA Encounter type: initial encounter Rhabdomyolysis type: traumatic AMS (altered mental status) R41.82 Coumadin toxicity T45.511A Bradycardia R00.1 GERD (gastroesophageal reflux disease) K21.9 UTI (urinary tract infection) N39.0 Hematuria presence: without hematuria Urinary tract infection type: site unspecified Hypertension I10 Tinea corporis B35.4 (1) Rhabdomyolysis Encounter type: initial encounter Rhabdomyolysis type: traumatic Qualified Code(s): T79.6XXA - Traumatic ischemia of muscle, initial encounter (6) UTI (urinary tract infection) Hematuria presence: without hematuria Urinary tract infection type: site unspecified Qualified Code(s): N39.0 - Urinary tract infection, site not specified
[2025-05-13] MEDS: METOPROLOL SUCC 50MG EXT REL TAB PO SCH (21:34)
[2025-05-14 07:09] LABS: Hematocrit (blood only) 38.6 % (37.0-47.0); Hemoglobin 12.3 g/dl (12.0-16.0); Immature Granulocytes # (auto) 0.01 K/uL (0.01-0.20); Immature Granulocytes % (auto) 0.2 %; Mean Corpuscular Hemoglobin 28.1 pg (25.0-34.0); Mean Corpuscular Volume 88.3 fL (80.0-100.0); Platelet Count 175 K/uL (130-400); RDW Standard Deviation 47.4 fL (36.4-46.3); Red Blood Count 4.37 M/uL (4.20-5.40); White Blood Count 6.37 K/ul (4.8-10.8)
[2025-05-14 07:33] LABS: Anion Gap 5.0 (3-11); Blood Urea Nitrogen 16.0 mg/dl (6-23); Calcium 8.7 mg/dl (8.6-10.3); Carbon Dioxide 29.0 mmol/L (21-32); Chloride 106.0 mmol/L (98-107); Creatine Kinase 426.0 U/L (26-192); Creatinine Clr Calc Pharmacy 92.3 ml/min; Glucose 108.0 mg/dl (70-99(Fasting)); Potassium 4.1 mmol/L (3.5-5.1); Sodium 140.0 mmol/L (136-145)
[2025-05-14 09:38] LABS: INR 1.2 (0.9-1.1); Prothrombin Time 12.6 Seconds (9.0-12.0)
[2025-05-14 10:29] LABS: Appearance Urine Turbid (Clear); Bacteria Urine Automated 4+ (None Seen); Cast Urine Automated 0-2 /lpf (0-2); Epithelial Cell Urine Auto 0-2 /hpf (0-2); Glucose Urine UA Negative (Negative); RBC Urine Automated >20 /hpf (0-2); WBC Urine Automated >50 /hpf (0-5)
--- NOTE | 2025-05-14 12:23 | Discharge Summary ---
Discharge Summary Date of Service May 14, 2025 Principal Dx & Hospital Course #1 = Principal Diagnosis (1) Rhabdomyolysis: Mild. Most likely from her falling and being down on the floor for a while. CK was 2700 on admission. Now normalized. Treated with IV fluids. (2) AMS (altered mental status): Suspected acute toxic encephalopathy due to medications present on admission. Now resolved. Supportive care. (3) Coumadin toxicity: INR david to a high of 9.5. She was given oral vitamin K and INR is again 1.2 today, May 14. Coumadin has now been reordered. Serial INR measurements. No current active bleeding (4) Bradycardia: Present on admission. Now resolved. Metoprolol has been restarted and dosage uptitrated for better blood pressure control. Continue telemetry (5) GERD (gastroesophageal reflux disease): Stable. Continue PPI therapy (6) UTI (urinary tract infection): Current urine analysis is consistent with UTI. Culture results pending. She has been started on Augmentin 875 mg twice a day today, May 14. (7) Hypertension: Amlodipine added on May 12 for better blood pressure control. Metoprolol has been restarted and uptitrated. Losartan is discontinued. Blood pressure is now well-controlled (8) Tinea corporis: Nystatin powder bid Plan Discharge to [facility] today, May 14 Admission HPI Per Admitting Provider Bonnie is a 64-year-old female who presented to the ER after a fall at 10 PM the prior evening, and he was down for approximately 13 hours. Per signout of EMS report patient was bradycardic in the field with a heart rate of 40s, improved to the 80s with atropine. She was initially confused but improved following atropine administration. Patient was hypothermic prehospital. Was in normal state of health yesterday afternoon That afternoon was confused. Acted like she needed to shower, but had already done this. Seemed confused went to bed at 8:30pm. Pt reported she would take her meds first then com eto bed. He heard her in the bathroom for a while, and then went to heck on her and found her sitting on the floor sidewide in the bathroom. He tried to get her up but she was tired so got a blanket Later in the night still wouldnt respond so helped lift her to lay in the main part of the camper. She was not responding or engaging very much at all, but would move her legs around weakly at the time. Was not answering questions. He thought maybe it was confusion maybe related to meds that would wear off. This morning was still very confused and not responding normally so called 911 for help. She has a hx of hiatal hernia Hx of PE a year or so ago, lifeflighted to [facility] Hx of back surgery and chronic He does not know her meds by heart, but thinks list by Dr. Sterling should be up to date NO medication changes recently. Does have oxycodone for chronic pain, he doesn't know if she took any extra doses NO recent complains of fevers, chills Does endrose dry throat and some dyspnea just in the last hour No nausea vomiting No recent dysuria, however was incontinent this morning which i sunusual. Eating and drinking normally prior to yesterday midday No history of heart attacks/CT or heart failure Hx of back leads from prior stimulator which were REMOVED. No other indwelling hardware or metal per pts Medical History: Reviewed Medications: Reviewed Surgical History: Reviewed Family history: Reviewed Allergies: Reviewed. Allergic to keflex. no known drug allergy to cipro. No history of anyeurisms. Social History: No tobacco use. No hx alcohol use. Code Status: Full Code Discharge Exam General-alert and oriented x3, no fever, no chills HEENT-head atraumatic and normocephalic, pupils equal and reactive to light, extraocular muscles intact Neck-no lymphadenopathy or thyromegaly, trachea midline Chest-clear to auscultation. No rales, wheezing or rhonchi Cardiac-regular rate and rhythm, normal S1 and S2 Abdomen-normal bowel sounds, no hepatosplenomegaly Extremities-no cyanosis, clubbing, or edema Neuro-cranial nerves II through XII intact, motor and sensory function within normal limits, strength symmetrical with generalized weakness, no focal deficits Psych-flat affect Discharge Plan Discharge Items Patient Disposition: Transfer Inpatient Rehab Fac Reason For Visit: AMS, WEAKNESS Discharge Diagnosis: Toxic encephalopathy, uncontrolled hypertension, acute UTI, Coumadin toxicity Condition on Discharge: Good Activity: Resume your previous activity Non-emergency contact: Primary Care Provider Call non-emergency contact if: your symptoms worsen Follow-up/Referrals: Theresa Sterling CRNP [Primary Care Provider] - Diet: Regular Addtl Attending Provider Instructions: See primary care provider as soon as possible after discharge from [facility] Pending Studies at Discharge: No Stand-Alone Forms: My [facility] Skilled Items Patient informed of condition?: Yes DNR: No Discharge Level of Care: Acute rehab Communicable Disease: No Discharge Prognosis: Stable Lines: None Urinary Catheter: No Medications and DC Order Prescriptions: New metoprolol succinate 50 mg Tablet Extended Release 24 Hr 100 mg PO QPM Qty: 0 0RF amoxicillin-pot clavulanate 875-125 mg Tablet 1 tab PO BIDM Qty: 0 0RF amlodipine 5 mg Tablet 5 mg PO QAM Qty: 0 0RF warfarin 5 mg Tablet 5 mg PO DAILY@1600 Qty: 0 0RF Continued Master Formula Vitamin 1 cap PO QAM BRAIN BOOST DAILY 1 tab 1 dose PO DAILY Honey compound solution 1 tspn PO DAILY Patient Comments: Honey mixed with eileen pwdr,turmeric pwdr, cinnamon, cayenne, black pepper Rx Instructions: 1 teaspoon once daily "Urinary Copen" 1 dose PO DAILY (DME) spacer device for inhaler See Rx Instructions .Route .MEDSUPPLY Qty: 1 0RF Rx Instructions: As directed gabapentin 400 mg capsule 400 mg PO QID Qty: 360 11RF epinephrine [EpiPen] 0.3 mg/0.3 mL auto-injector 0.3 mg IM DIRECTED PRN (Reason: bronchodilation) Qty: 2 0RF Rx Instructions: until response atorvastatin 10 mg tablet 10 mg PO DAILY Qty: 90 3RF oxybutynin chloride 5 mg tablet 5 mg PO TID Qty: 360 3RF nystatin 100,000 unit/gram powder 1 applic topical BID Qty: 30 4RF warfarin 5 mg tablet See Rx Instructions PO UD Qty: 48 3RF Rx Instructions: 2.5mg q Sunday, 7.5mg x 6 days per [facility] orally use as directed; gabapentin 100 mg capsule 100 mg PO BID PRN (Reason: pain) Qty: 60 2RF Rx Instructions: may take 100mg up to twice daily (add to the 400 mg dose) baclofen 10 mg tablet 20 mg PO TID albuterol sulfate 90 mcg/actuation HFA aerosol inhaler 2 puff INHALATION QID PRN (Reason: Shortness Of Breath Or Wheezing) Qty: 8.5 4RF pantoprazole 20 mg tablet,delayed release (DR/EC) 20 mg PO BID Qty: 180 3RF Probiotic 3 billion cell Capsule 1 cap PO QPM oxycodone 10 mg tablet 10 mg PO Q4H PRN (Reason: Pain) Discontinued metoprolol succinate 50 mg tablet extended release 24 hr 50 mg PO HS Qty: 90 3RF losartan 25 mg tablet 25 mg PO QAM Qty: 90 3RF Discharge Orders: Discharge Order (Routine); Ordered 05/14/25 Ordered By: Justino Mcbride Admission Data Admit Date/Time: 05/09/25 14:43 Attending Provider: Justino Mcbride Admit Provider: Carlo Lopez Primary Care Provider: Theresa Sterling Other Providers: Keenan Mahan; Carlo Lopez; Jr Ruiz; [facility]; Gabriella Daigle; Ramón Steele; Vickie Moreno; Brie Samuel; Rangel Rust; Mari Sahni; Kalen Ace; Katherine [facility] Hospital Stay Data Consultations 05/09/25 13:04 ED Decision to Admit Stat 05/09/25 13:31 ED Decision to Admit Stat 05/12/25 14:37 Consult Psychiatry Routine Diagnostic Imagining Performed 05/09/25 11:25 CT abd pelvis IV con only Stat CT chest diagnostic w con Stat CT lumbar spine w con Stat CT thoracic spine w con Stat 05/09/25 11:26 CT cervical spine wo con Stat CT head/brain wo con Stat 05/11/25 00:00 MR brain wo con Routine Pending Results Patient Have Any Pending Studies at Discharge: No Discharge Instructions Given to Patient (Per Discharging Provider) See primary care provider as soon as possible after discharge from [facility] Total Time Total Time Spent Total Time Spent (In Minutes): 45-minute Coding Level of Care Code 11659 INP/OBS DISCH >30 MIN Diagnoses Rhabdomyolysis T79.6XXA Encounter type: initial encounter Rhabdomyolysis type: traumatic AMS (altered mental status) R41.82 Coumadin toxicity T45.511A Bradycardia R00.1 GERD (gastroesophageal reflux disease) K21.9 UTI (urinary tract infection) N39.0 Hematuria presence: without hematuria Urinary tract infection type: site unspecified Hypertension I10 Tinea corporis B35.4
[2025-05-14] MEDS: AMOXICILLIN/CLAVULANATE 875 MG TAB PO SCH (13:11)
--- NOTE | 2025-05-14 15:32 | Electrocardiogram Report ---
Test Reason : Blood Pressure : */* mmHG Vent. Rate : 136 BPM Atrial Rate : 136 BPM P-R Int : 120 ms QRS Dur : 74 ms QT Int : 370 ms P-R-T Axes : 35 5 28 degrees QTcB Int : 556 ms Sinus tachycardia Inferior infarct , age undetermined Abnormal ECG When compared with ECG of 09-May-2025 11:29, Premature supraventricular complexes are no longer Present Vent. rate has increased by 53 bpm Inferior infarct is now Present Confirmed by Edilson Broussard ([id number]) on 05/14/2025 3:32:42 PM Referred By: REFERRED SELF Confirmed By: Edilson Broussard
[2025-05-14 16:07] VITALS: PULSE 79; RESP 17; TEMP 97.9; O2SAT 94
[2025-05-14 18:06] VITALS: BP 144/79
== END 2025-05-14 17:30 | DRG 917 ==
LOC: ED 11:23 → 2E 14:43 → SUATTDRO 14:43 → 2E 16:13